=== PATIENT | female | born 2000 | race Two or more races ===

== ENCOUNTER 2023-08-11 15:16 | Outpatient (OUT) | payer OTHER, MEDICAID, SELFPAY ==
[2023-08-11 15:39] LABS: Basophils Percent Auto 0.3 % (0.2-2.0); Eosinophils Absolute Auto 0.1 10^3/uL (0.0-0.7); Eosinophils Percent Auto 1.1 % (0.9-7.0); Hematocrit 35.5 % (36.0-48.0); Hemoglobin 11.4 g/dL (12.0-16.0); Immature Granulocytes Abs Auto 0.03 10^3/uL (0.00-0.03); Immature Granulocytes Pct Auto 0.3 % (0.0-0.5); Lymphocytes Absolute Auto 2.3 10^3/uL (1.2-3.8); Lymphocytes Percent Auto 25.8 % (20.5-60.0); Mean Corpuscular HGB Conc 32.1 g/dL (29.9-35.2); Mean Corpuscular Hemoglobin 27.1 pg (26.7-34.0); Mean Corpuscular Volume 84.3 fL (81.0-99.0); Mean Platelet Volume 9.3 fL (9.5-13.5); Monocytes Absolute Auto 0.5 10^3/uL (0.3-0.8); Monocytes Percent Auto 5.7 % (1.7-12.0); Neutrophils Absolute Auto 6.1 10^3/uL (1.4-6.5); Neutrophils Percent Auto 66.8 % (43.0-75.0); Platelet Count 509 10^3/uL (150-450); Red Blood Count 4.21 10^6/uL (4.20-5.40); Red Cell Distribution Width 13.5 % (11.0-15.0); White Blood Count 9.1 10^3/uL (4.0-11.0)
[2023-08-11 15:58] LABS: INR 0.97; Partial Thromboplastin Time 28.5 sec (22.3-36.2); Prothrombin Time 10.3 sec (9.0-11.6)
[2023-08-11 16:20] LABS: Free T4 1.08 ng/dL (0.76-1.46)
[2023-08-11 16:24] LABS: HCG Quantitative <1 mIU/mL; Thyroid Stimulating Hormone 2.555 uIU/mL (0.358-3.740)
[2023-08-11 18:42] LABS: Estimated Average Glucose 111 mg/dL; Glycohemoglobin A1C 5.5 % (4.5-6.2)
== END 2023-08-11 15:17 | disposition home or self-care (01) ==
LOC: LAB 15:20
PROVIDERS: PCP Family Medicine; Visit Provider Physician Assistant
DX: N92.0 Excessive and frequent menstruation with regular cycle (principal)
CPT/HCPCS: 36415; 83036; 84439; 84443; 84702; 85025; 85610; 85730

== ENCOUNTER 2024-01-02 13:34 | Outpatient (OUT) | payer OTHER, MEDICAID, SELFPAY ==
--- NOTE | 2024-01-02 13:40 | US_ITS ---
[address] [address] Patient Name: HANK BRYAN MRN: [id number] date: 2000 Sex: F Assigned Patient Location: US Current Patient Location: US Accession/Order Number: [id number] Exam Date: 01/02/2024 13:48 Report Date: 01/02/2024 14:34 At the request of: VIKASH REINA Procedure: US pelvis EXAMINATION: US pelvis HISTORY: Menorrhagia With Regular Cycle N92.0 COMPARISON: No relevant comparison available. TECHNIQUE: Transabdominal and/or transvaginal sonographic examination was performed as indicated by examination type. FINDINGS: UTERUS: Normal size and appearance. Uterus size: 11.8 x 3.9 x 5.8 cm ENDOMETRIUM: Normal homogeneous appearance. Endometrial thickness: 5 mm RIGHT OVARY: Normal size and appearance. Duplex Doppler demonstrates normal waveform and flow; resistive index 0.6. Ovary size: 2.8 x 1.7 x 2.2 cm LEFT OVARY: Normal size and appearance. Duplex Doppler demonstrates normal waveform and flow; resistive index 0.5. Ovary size: 4.5 x 2.4 x 3.0 cm CUL-DE-SAC: Small amount of free fluid, likely physiologic. BLADDER: Unremarkable. OTHER: None. US/US pelvis IMPRESSION: 1. No abnormal or suspicious findings to account for patient's symptoms. Electronically authenticated by: DAYTON DE SANTIAGO Date: 01/02/2024 14:34
--- OUTSIDE RECORDS SUMMARY | 2024-01-02 13:41 | XMS_ITS | CCD ---
Author Organization [facility] Care Team Providers Care Chief Estimator Name Role Phone LIN, RUGEN Admitting Unavailable LIN, RUGEN Attending Unavailable LIN, RUGEN Primary Care Unavailable LIN, RUGEN Consulting Unavailable ISRAEL KESSLER V Consulting Unavailable LIN, RUGEN Primary Care Unavailable MARKER, CINDY Admitting Unavailable MARKER, CINDY Attending Unavailable MARKER, CINDY Consulting Unavailable LIN, RUGEN Admitting Unavailable LIN, RUGEN Attending Unavailable LIN, RUGEN Primary Care Unavailable LIN, RUGEN Consulting Unavailable ISRAEL KESSLER V Consulting Unavailable LIN, RUGEN Admitting Unavailable LIN, RUGEN Attending Unavailable LIN, RUGEN Primary Care Unavailable LIN, RUGEN Consulting Unavailable ISRAEL KESSLER V Consulting Unavailable LIN, RUGEN Admitting Unavailable LIN, RUGEN Attending Unavailable LIN, RUGEN Primary Care Unavailable LIN, RUGEN Consulting Unavailable DAYTON JIANG Consulting Unavailable LIN, RUGEN Admitting Unavailable LIN, RUGEN Attending Unavailable LIN, RUGEN Primary Care Unavailable LIN, RUGEN Consulting Unavailable DAYTON JIANG Consulting Unavailable LIN, RUGEN Primary Care Unavailable ELIZABETH MIRAMONTES Admitting Unavailable ELIZABETH MIRAMONTES Attending Unavailable ELIZABETH MIRAMONTES Consulting Unavailable MAYRA CARO) Admitting Unavailab MAYRA Field) Attending Unavailab MAYRA Field) Referring Unavailab MAYRA Field) Attending Unavailab ISABEL Kim Referring Unavailable PAPO, DEVINANCHUNIQUE Referring Unavailable PAPO, DEVINANCHAU Referring Unavailable PAPO, CHUANCHAU Referring Unavailable PAPO, DEVINANCHAU Attending Unavailable ISABEL ALEXIS Referring Unavailable ISABEL ALEXIS Attending Unavailable LIN, RUGEN RAYY Referring Unavailable LIN, RUGEN MABALAY Referring Unavailable Poppy Prajapati Unavailable Funmilayo Colon Attending Unavailable Funmilayo Colon Admitting Unavailable Enrico Ceballos MD Primary Care Provider PEYTON ALEXIS Attending Unavailable AKIN HUERTAS Attending Unavailable AKIN HUERTAS Attending Unavailable LESLIE DAVIDSON Attending Unavailable Allergies Allergy Classification Reported Allergen(s) Allergy Type Date of Onset Reaction(s) Facility (1 source) Dust; Translations: [DUST] Propensity to adverse reactions (disorder) 9 [facility] (1 source) Grass pollen; Translations: [GRASS POLLEN] Propensity to adverse reactions to drug (disorder) 9 [facility] (1 source) Tree; Translations: [TREES] Propensity to adverse reactions (disorder) 9 [facility] (1 source) Grass pollen Drug Allergy 9 [facility] (1 source) House dust mite Allergy to substance 9 [facility] Work Phone: Medications Current Medications Medication Drug Class(es) Dates Sig (Normalized) Sig (Original) [id number] 200 actuat albuterol 0.09 mg/actuat metered dose inhaler (1 source) beta2-Adrenergic Agonist take 2 puff(s) by inhalation every four hours for wheezing albuterol HFA (Ventolin HFA) 90 mcg/act inhaler Inhale 2 puffs every 4 (four) hours if needed for wheezing or shortness of breath. 0 Active 60 actuat budesonide 0.16 mg/actuat / formoterol fumarate 0.0045 mg/actuat metered dose inhaler (1 source) Corticosteroid, beta2-Adrenergic Agonist Start: 3 take 2 puff(s) by inhalation in the morning Symbicort 160-4.5 MCG/ACT inhaler Inhale 2 puffs in the morning and 2 puffs before bedtime. 0 12/11/2022 Active 24 hr buPROPion hydrochloride 300 mg extended release oral tablet (1 source) Aminoketone take 1 tablet by mouth every twenty-four hours in the morning buPROPion XL (Wellbutrin XL) 300 MG 24 hr tablet Take 300 mg by mouth in the morning. 0 Active calcium carbonate 1500 mg oral tablet (1 source) take 1 tablet by mouth in the morning calcium carbonate 1500 (600 Ca) MG tablet Take 600 mg by mouth in the morning. 0 Active cholecalciferol 0.125 mg oral capsule (1 source) Vitamin D Start: 2 take 1 capsule by mouth in the morning cholecalciferol (Vitamin D-3) 125 MCG (5000 UT) capsule Take 1 capsule by mouth in the morning. 0 05/27/2022 Active ketorolac tromethamine 5 mg/ml ophthalmic solution (1 source) Nonsteroidal Anti-inflammatory Drug, Cyclooxygenase Inhibitor Start: 4 take 1 drop(s) into the eye(s) every six hours ketorolac (Acular) 0.5 % ophthalmic solution Indications: Allergic conjunctivitis of both eyes Administer 1 drop into both eyes every 6 (six) hours 5 mL 1 10/08/2023 Active 24 hr metFORMIN hydrochloride 500 mg extended release oral tablet (1 source) Biguanide Start: 4 End: 4 take 1 tablet by mouth every twenty-four hours at mealtime metFORMIN XR (Glucophage-XR) 500 MG 24 hr tablet Indications: PCOS (polycystic ovarian syndrome) Take 1 tablet (500 mg) by mouth in the evening. Take with meals Do not crush, chew, or split. 90 tablet 0 11/17/2023 02/15/2024 Active methylPREDNISolone 4 mg oral tablet (1 source) Corticosteroid Start: 0 Medrol 4 MG as directed Orally for 6 days Aug, Active ondansetron 4 mg disintegrating oral tablet (1 source) Serotonin-3 Receptor Antagonist take 1 tablet by mouth every eight hours as needed for nausea and vomiting ondansetron ODT (Zofran-ODT) 4 MG disintegrating tablet Take 4 mg by mouth every 8 (eight) hours if needed for nausea or vomiting. 0 Active promethazine hydrochloride 12.5 mg oral tablet (1 source) Phenothiazine Start: 1 take 1 tablet by mouth every eight hours Promethazine HCl 12.5 MG 1 tablet as needed Orally every 8 hrs for 4 days Jul, Active Problems Active Problems Problem Classification Problem Date Documented Da te Episodic/Chronic Acute bronchitis (5 sources) Acute bronchitis, unspecified; Translations: [ACUTE BRONCHITIS UNSPECIFIED] Onset: 8 Episodic Allergic reactions (1 source) Flexural atopic dermatitis; Translations: [Other atopic dermatitis] Onset: 0 07-30-2023 Chronic Allergic reactions (4 sources) Unspecified contact dermatitis, unspecified cause; Translations: [UNS CONTACT DERMATITIS UNS CAUSE] Onset: 9 Episodic Anxiety disorders (1 source) Generalized anxiety disorder; Translations: [Generalized anxiety disorder] Onset: 3 07-30-2023 Chronic Asthma (4 sources) Unspecified asthma, uncomplicated; Translations: [Exacerbation of moderate persistent asthma] Onset: 7 07-30-2023 Chronic External cause codes: Natural/environment (1 source) Exposure to other specified factors, initial encounter; Translations: [EXPOSURE OTHER SPEC FACTORS INITIAL] Onset: 9 Headache; including migraine (6 sources) Refractory migraine without aura; Translations: [Migraine without aura, intractable, without status migrainosus] Onset: 8 Resolved: 1 Chronic Joint disorders and dislocations; trauma-related (1 source) Patellofemoral syndrome of left knee; Translations: [Patellofemoral disorders, left knee] Onset: 7 07-30-2023 Chronic Malaise and fatigue (1 source) Fatigue; Translations: [Chronic fatigue, unspecified] Onset: 7 07-30-2023 Chronic Nausea and vomiting (6 sources) Nausea; Translations: [Nausea with vomiting, unspecified] Onset: 8 Episodic Nausea and vomiting (1 source) Vomiting, unspecified; Translations: [Vomiting] Onset: 9 Open wounds of extremities (1 source) Unspecified open wound of left upper arm, initial encounter; Translations: [UNSPECIFIED OPN WND LT UP ARM INIT] Onset: 9 Episodic Other gastrointestinal disorders (3 sources) Diarrhea, unspecified; Translations: [DIARRHEA UNSPECIFIED] Onset: 9 Episodic Other lower respiratory disease (6 sources) Other nonspecific abnormal finding of lung field; Translations: [OTH NONSPECIFIC ABN FIND LNG FIELD] Onset: 9 Episodic Other nutritional; endocrine; and metabolic disorders (1 source) Body mass index 40+ - severely obese; Translations: [Body mass index (BMI) 50.0-59.9, adult] Onset: 3 07-30-2023 Chronic Other nutritional; endocrine; and metabolic disorders (1 source) Obesity caused by energy imbalance; Translations: [Morbid (severe) obesity due to excess calories] Onset: 7 07-30-2023 Chronic Other upper respiratory disease (1 source) 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; Translations: [Other allergic rhinitis] Onset: 3 04-22-2023 Chronic Other upper respiratory disease (1 source) Allergic rhinitis due to pollen; Translations: [Allergic rhinitis due to pollen] Onset: 8 07-30-2023 Chronic Thyroid disorders (1 source) Goiter; Translations: [Iodine-deficiency related diffuse (endemic) goiter] Onset: 3 07-30-2023 Chronic Unclassified (1 source) Other specified disorders of bone, shoulder; Translations: [Other specified disorders of bone, shoulder] Onset: 3 Past or Other Problems Problem Classification Problem Date Documented Date Episodic/Chronic Abdominal pain (3 sources) Unspecified abdominal pain; Translations: [Right upper quadrant pain] Onset: 12-01-2018 07-30-2023 Episodic Cardiac dysrhythmias (2 sources) Palpitations; Translations: [Palpitations] Onset: 12-01-2018 07-30-2023 Episodic Inflammation; infection of eye (except that caused by tuberculosis or sexually transmitteddisease) (1 source) Allergic conjunctivitis of bilateral eyes; Translations: [Acute atopic conjunctivitis, bilateral] Onset: 06-18-2023 06-18-2023 Episodic Mycoses (1 source) Dermatophytosis; Translations: [Tinea corporis] Onset: 02-25-2017 07-30-2023 Episodic Noninfectious gastroenteritis (1 source) Gastroenteritis; Translations: [Gastroenteritis] Episodic Other circulatory disease (1 source) Elevated blood-pressure reading without diagnosis of hypertension; Translations: [Elevated blood-pressure reading, without diagnosis of hypertension] Onset: 07-30-2023 07-30-2023 Episodic Other connective tissue disease (1 source) Ganglion cyst of left foot; Translations: [Ganglion, left ankle and foot] Onset: 07-30-2023 07-30-2023 Episodic Other lower respiratory disease (4 sources) Cough; Translations: [COUGH] Onset: 12-25-2017 Episodic Other lower respiratory disease (1 source) Multiple nodules of lung; Translations: [Other nonspecific abnormal finding of lung field] Onset: 10-27-2018 07-30-2023 Episodic Other lower respiratory disease (1 source) Solitary nodule of lung; Translations: [Solitary pulmonary nodule] Onset: 10-07-2018 07-30-2023 Episodic Other non-traumatic joint disorders (1 source) Multiple joint pain; Translations: [Pain in unspecified joint] Onset: 07-30-2023 07-30-2023 Episodic Other nutritional; endocrine; and metabolic disorders (1 source) Decrease in appetite; Translations: [Anorexia] Onset: 07-30-2023 07-30-2023 Episodic Other screening for suspected conditions (not mental disorders or infectious disease) (1 source) Ferritin level low; Translations: [Abnormal level of blood mineral] Onset: 07-30-2023 07-30-2023 Episodic Other upper respiratory disease (1 source) Allergic rhinitis; Translations: [Allergic rhinitis, unspecified] Onset: 04-14-2018 Resolved: 07-30-2023 07-30-2023 Chronic Other upper respiratory disease (3 sources) Other specified disorders of nose and nasal sinuses; Translations: [OTH SPEC D/O NOSE NASAL SINUSES] Onset: 04-21-2018 Episodic Other upper respiratory infections (1 source) Acute nasopharyngitis [common cold]; Translations: [ACUTE NASOPHARYNGITIS COMMON COLD] Onset: 04-23-2018 Episodic Residual codes; unclassified (1 source) Insomnia; Translations: [Insomnia, unspecified] Onset: 10-27-2018 07-30-2023 Episodic Residual codes; unclassified (1 source) Sleep disorder; Translations: [Sleep disorder, unspecified] Onset: 04-14-2017 07-30-2023 Episodic Residual codes; unclassified (1 source) Vegetarian; Translations: [Other specified health status] Onset: 07-30-2023 07-30-2023 Episodic Viral infection (1 source) COVID-19; Translations: [Other specified viral infection] Onset: 12-01-2020 10-25-2023 Episodic Results Test Name Value Interpretation Reference Range Facility XR shoulder RT min 2V*on XR shoulder RT min 2V* [facility] [place] [address] [place] [address] XRay Report Signed Patient: Hank Bryan MR#: [id number] 3 : 2000 Acct:[id number] Age/Sex: 22 / F ADM Date: 11/18/22 Loc: [facility] Room: Type: [facility] Attending Dr: Funmilayo SALDANA Copies to: LES Kelly Ordering Provider: LES Kelly Date of Service: 11/18/22 XR/XR shoulder RT min 2V*: Pain of right clavicle RIGHT SHOULDER - - 3 views CLINICAL HISTORY: Little brother head is head on patient's right shoulder 3 days ago. Now pain anterior to the clavicle radiates to elbow. COMPARISON: None FINDINGS: No acute bony process is seen. XR/XR shoulder RT min 2V* IMPRESSION: No acute bony process. Impression dictated by: Fred Solano Jr., ElsaOGeoff11/18/2022 4:17 PM Dictation Location: [place] [address] Transcribed By: [facility] 11/18/221616 Dictated By: Fred Solano Jr, DO 11/18/221615 Signed By: 11/18/221616 [facility] Marli 02-03-2019 CNPTOUTREA Patient Outreach (PGAN) HANK BRYAN ([id number]) 4 F Date Time Provider Department 02/03/19 MAYRA CARO) EVELYNE During your visit today, we recorded the following information about you: Mary Jane 02/03/2019 9:46 AM Signed Called and spoke with mom (Christine). Mom informed that surgical pathology came back normal from patient's recent scope per Dr. Caro. Mom thankful for this information, and has no further questions for RN. Allergies As of Date: 02/03/2019 Noted Allergy Reaction DUST 12/01/2018 4 - Hives Comments: swelling, redness, itching GRASS POLLEN 12/01/2018 4 - Hives Comments: swelling, redness, itching TREES 12/01/2018 4 - Hives Comments: eye redness, itching, swelling Date Reviewed: 01/26/2019 Reviewed by: Lois (Rn) CLIVE Robertson - Fully Assessed Reason for Visit: Care Coordination [3491] Cmt: Normal surgical pathology results Reason For Visit History Recorded Prescriptions as of 02/03/2019 Sig: ONDANSETRON 4 MG DISINTEGRATI* Take 4 mg by mouth every 8 ho* ALBUTEROL SULFATE HFA 90 MCG/* Inhale 2 Puffs as instructed. Problem List As Of Date 02/03/2019 Noted Resolved Lung nodules [R91.8] INVALID FOR* Mild intermittent asthma without complication [*INVALID FOR* Generalized abdominal pain [R10.84] INVALID FOR* Palpitations [R00.2] INVALID FOR* Encounter Status:Closed by MARY JANE on 02/03/19 [facility] PROGRESSon 02-03-2019 Protein mass conc HNO ID: [id number] Author: Mary Jane Service: ? Author Type: ? Type: Progress Notes Filed: 02/03/2019 9:46 AM Note Text: Called and spoke with mom (Christine). Mom informed that surgical pathology came back normal from patient's recent scope per Dr. Caro. Mom thankful for this information, and has no further questions for RN. Normal [facility] CNPTOUTREACHon 01-28-2019 CNPTOUTREACH Patient Outreach (PGASMN) HANK [id number]) 4 F Date Time Provider Department 01/28/19 MAYRA CARO) PGAN During your visit today, we recorded the following information about you: Mary Jane 01/28/2019 1:14 PM Signed Called and spoke with mom (christine). Mom informed that per Dr. Caro labs all came back good except for an elevated Triglyceride level. Dr. Caro would like patient to follow up with PCP to discuss this elevated level. Mom teaches this back and has no further questions for RN at this time. Allergies As of Date: 01/28/2019 Noted Allergy Reaction DUST 12/01/2018 4 - Hives Comments: swelling, redness, itching GRASS POLLEN 12/01/2018 4 - Hives Comments: swelling, redness, itching TREES 12/01/2018 4 - Hives Comments: eye redness, itching, swelling Date Reviewed: 01/26/2019 Reviewed by: Lois (Clive) CLIVE Robertson - Fully Assessed Reason for Visit: patient outreach [Other] Cmt: Elevated Triglycerides Prescriptions as of 01/28/2019 Sig: ONDANSETRON 4 MG DISINTEGRATI* Take 4 mg by mouth every 8 ho* ALBUTEROL SULFATE HFA 90 MCG/* Inhale 2 Puffs as instructed. Problem List As Of Date 01/28/2019 Noted Resolved Lung nodules [R91.8] INVALID FOR* Mild intermittent asthma without complication [*INVALID FOR* Generalized abdominal pain [R10.84] INVALID FOR* Palpitations [R00.2] INVALID FOR* Encounter Status:Closed by MARY JANE on 01/28/19 Normal [facility] PROGRESSon 01-28-2019 Protein mass conc HNO ID: [id number] Author: Mary Jane Service: ? Author Type: ? Type: Progress Notes Filed: 01/28/2019 1:14 PM Note Text: Called and spoke with mom (christine). Mom informed that per Dr. Caro labs all came back good except for an elevated Triglyceride level. Dr. Caro would like patient to follow up with PCP to discuss this elevated level. Mom teaches this back and has no further questions for RN at this time. Normal [facility] ALLIED HEALTHon 01-26-2019 ALLIED HEALTH HNO ID: [id number] Author: Oneil (Ccls) Emmanuel Service: ? Author Type: Health Commissioner Type: Allied Health Filed: 01/26/2019 10:12 AM Note Text: CHILD LIFE THERAPY NOTE SERVICE DATE: 01/26/2019 SERVICE TIME: 730 Referred By: Self Reason for Referral: Reason for Visit /Referral: Procedural preparation/support;Pat ient coping/assessement;Care givers coping/assessment Time Spent (minutes): Child Life Time Spent: 16-30 Minutes Assessments: 3-21 years old Child Behavior: Apprehensive, Within normal limit Caregiver Assessment: Behavior within normal limits Coping Assessment: Behavior with expected limits, Understands reason for hospitalization Psychoscoial Risk Assessment in Pediatrics (PRAP) Reason for PRAP?: prep for OR Communication: 0-Functional communication skills for age/expresses wants and needs Special Needs: 0-No special needs Anxiety and Copin-Some situational anxiety evident/ can cope with support Temperament: 0-Even and adaptable Parent and Caregiver Stress: 1-Shows signs of stress, but responds to support and/or utilizes coping strategies Past Healthcare Encounter: 0-Positive previous encounter Invasiveness of Procedure/Encounter: 1-Mildly invasive procedure/encounter for patient Developmental Impact: 1-Aspects of development may mildly impact coping PRAP Score Row: 4 Issues: Patient Issue: Normalization, Procedure Normalization Related To: Hospital Environment, Medical Equipment, Procedure Procedure Related to: IV placement Interventions: Initiated Child Life Program: Yes Child Life Clinical Interventions: Preparation for procedure, Coping plan developed, Environmental normalization, Diversional activities, Normal growth and development, Procedural support, Coping skills development/facilitatio n, Family support, Cognitive/emotional support Child Life Preparation for Procedure: Verbal Child Life Coping Plan Developed: Discussed sequence of events; framed day in positive light to get answers for on-going abdominal issues; discussed post-anethesia effects (irritability or discomfort) Extended Family Support: Caregiver support and education Child Life Procedural Support Interventions: Comfort positioning, Coping skills facilitation, Other: see comment(Pt squeezed CLS hand through IV placement) Coping Skills Facilitation : Deep breathing, Sequence of event, Sensory soothing Distractions: Verbal distraction Evaluation: Normalization Goals/Outcomes: Patient and/or Family Adjusting to Hospitalization with Support Normalization Evaluation of Progress: Pt responsive to conversation about her procedure; Pt answered questions and appeared to be coping well despite parents' voicing that she is anxious about today Normalization Resolution: Yes: Goals/Outcomes Met Procedure Goals/Outcomes: Actively Engages in Coping Skills, Coped Well with Support Procedure - Evaluation of Progress: Pt utilized coping strategies (squeezing CLS hand, diversional conversation, sequence of events deep breathing) Pt coped well through 2 pokes Procedure Resolution: Yes: Goals/Outcomes Met SIGNATURE: mejia Hall PATIENT NAME: Hank Bryan DATE: January 26, 2019 TIME: 10:12 AM PAGER/CONTACT #: [phone] [facility] ANES Jenifer 01-26-2019 ANES POST HNO ID: [id number] Author: Karen Reese Service: Anesthesiology Author Type: Anesthesiologist Type: Anesthesia PostOp Filed: 01/26/2019 2:27 PM Note Text: POST ANESTHESIA EVALUATION NOTE SERVICE DATE: 01/26/2019 SERVICE TIME: 14:30 : 2000 Vitals: 01/26/19 0702 01/26/19 0903 01/26/19 0930 01/26/19 1011 Temp: 36.1 ?C (97 ?F) 36.1 ?C (97 ?F) 36.2 ?C (97.2 ?F) 36.1 ?C (97 ?F) 01/26/19 0903 01/26/19 0915 01/26/19 0930 01/26/19 1011 BP: 106/55 108/64 108/63 118/85 01/26/19 0915 01/26/19 0930 01/26/19 1000 01/26/19 1011 Pulse: 90 86 89 80 01/26/19 0915 01/26/19 0930 01/26/19 1000 01/26/19 1011 Resp: 20 20 20 20 01/26/19 0915 01/26/19 0930 01/26/19 1000 01/26/19 1011 SpO2: 97% 98% 98% 99% Validated Vital Signs: Yes POST ANES STATUS: No apparent anesthetic complications. The patient is appropriately hydrated with stable respiratory and cardiovascular status. Patient has safe and adequate airway control. The patient has appropriate pain relief and no significant post operative nausea or vomiting. The patient has achieved baseline mental status. Intra-Operative Events: No Significant Anesthesia Events Further assessment by Anesthesia Service: None Other Remarks: SIGNATURE: Karen Reese MD PATIENT NAME: Hank Bryan DATE: January 26, 2019 TIME: 2:26 PM PAGER/CONTACT #: [phone] Normal [facility] C-Reactive Proteinon 019 CRP mass conc 0.2 mg/dL Normal <0.9 [facility] Comment on above: Performed By: #### C BCDIF, WSR, FT4, IGA, CMP, LIPA, LIPB, TSH, CRP, TGIGA, GLIAD, TGIGG ####[place] [address] [address] [place], [place] [phone] CBC and Differentialon 01-26 Abs Baso 0.05 k/uL Normal <0.11 [facility] Comment on above: Performed By: #### C BCDIF, WSR, FT4, IGA, CMP, LIPA, LIPB, TSH, CRP, TGIGA, GLIAD, TGIGG ####[place] [address] [address] [place], [place] [phone] Abs Cedar 0.58 k/uL Normal <0.87 [facility] Comment on above: Performed By: #### C BCDIF, WSR, FT4, IGA, CMP, LIPA, LIPB, TSH, CRP, TGIGA, GLIAD, TGIGG ####[place] [address] [address] [place] [phone] Abs Neut 5.35 k/uL Normal 1.45-7.50 [facility] Comment on above: Performed By: #### C BCDIF, WSR, FT4, IGA, CMP, LIPA, LIPB, TSH, CRP, TGIGA, GLIAD, TGIGG ####[place] [address] [address], [place] [phone] Absolute nRBC <0.01 Normal <0.01 [facility] Comment on above: Performed By: #### C BCDIF, WSR, FT4, IGA, CMP, LIPA, LIPB, TSH, CRP, TGIGA, GLIAD, TGIGG ####[place] [address] [address] [place] [phone] Basophils/100 WBC (Bld) 0.6 % Normal [facility] Comment on above: Performed By: #### C BCDIF, WSR, FT4, IGA, CMP, LIPA, LIPB, TSH, CRP, TGIGA, GLIAD, TGIGG ####[place] [address] [address] [place] [phone] DTYPE Auto Diff Normal [facility] Comment on above: Performed By: #### C BCDIF, WSR, FT4, IGA, CMP, LIPA, LIPB, TSH, CRP, TGIGA, GLIAD, TGIGG ####[place] [phone] Eosinophils #/vol (Bld) 0.10 10*3/uL Normal <0.46 [facility] Comment on above: Performed By: #### C BCDIF, WSR, FT4, IGA, CMP, LIPA, LIPB, TSH, CRP, TGIGA, GLIAD, TGIGG ####[place] [address] [place] [phone] Eosinophils/100 WBC (Bld) 1.1 % Normal [facility] Comment on above: Performed By: #### C BCDIF, WSR, FT4, IGA, CMP, LIPA, LIPB, TSH, CRP, TGIGA, GLIAD, TGIGG ####[place] [address] [address] [place] [phone] Erythrocyte distribution width Ratio (RBC) 13.5 % Normal 11.5-15.0 [facility] Comment on above: Performed By: #### C BCDIF, WSR, FT4, IGA, CMP, LIPA, LIPB, TSH, CRP, TGIGA, GLIAD, TGIGG ####[address] [phone] Hematocrit Volume Fraction (Bld) 34.0 % Low 36.0-46.0 [facility] Comment on above: Performed By: #### C BCDIF, WSR, FT4, IGA, CMP, LIPA, LIPB, TSH, CRP, TGIGA, GLIAD, TGIGG ####[place] [phone] Hemoglobin mass conc (Bld) 11.0 g/dL Low 11.5-15.5 [facility] Comment on above: Performed By: #### C BCDIF, WSR, FT4, IGA, CMP, LIPA, LIPB, TSH, CRP, TGIGA, GLIAD, TGIGG ####[place] [phone] Lymphocytes #/vol (Bld) 2.69 10*3/uL Normal 1.00-4.00 [facility] Comment on above: Performed By: #### C BCDIF, WSR, FT4, IGA, CMP, LIPA, LIPB, TSH, CRP, TGIGA, GLIAD, TGIGG ####[place] [place] [phone] Lymphocytes/100 WBC (Bld) 30.7 % Normal [facility] Comment on above: Performed By: #### C BCDIF, WSR, FT4, IGA, CMP, LIPA, LIPB, TSH, CRP, TGIGA, GLIAD, TGIGG ####[address] [phone] MCH Entitic mass (RBC) 27.6 pG Normal 26.0-34.0 [facility] Comment on above: Performed By: #### C BCDIF, WSR, FT4, IGA, CMP, LIPA, LIPB, TSH, CRP, TGIGA, GLIAD, TGIGG ####[address], [place] [phone] MCHC mass conc (RBC) 32.4 g/dL Normal 30.5-36.[address] [facility] Comment on above: Performed By: #### C BCDIF, WSR, FT4, IGA, CMP, LIPA, LIPB, TSH, CRP, TGIGA, GLIAD, TGIGG ####[place] [phone] MCV Entitic volume (RBC) 85.4 fL Normal 80.0-100.0 [facility] Comment on above: Performed By: #### C BCDIF, WSR, FT4, IGA, CMP, LIPA, LIPB, TSH, CRP, TGIGA, GLIAD, TGIGG ####[place] [phone] Monocytes/100 WBC (Bld) 6.6 % Normal [facility] Comment on above: Performed By: #### C BCDIF, WSR, FT4, IGA, CMP, LIPA, LIPB, TSH, CRP, TGIGA, GLIAD, TGIGG ####[place] [phone] Neutrophils/100 WBC (Bld) 61.0 % Normal [facility] Comment on above: Performed By: #### C BCDIF, WSR, FT4, IGA, CMP, LIPA, LIPB, TSH, CRP, TGIGA, GLIAD, TGIGG ####[place] [phone] NRBCs 0.0 /100 WBC Normal 0 [facility] Comment on above: Performed By: #### C BCDIF, WSR, FT4, IGA, CMP, LIPA, LIPB, TSH, CRP, TGIGA, GLIAD, TGIGG ####[place] [phone] Platelet mean volume Entitic volume (Bld) 9.7 fL Normal 9.0-12.7 [facility] Comment on above: Performed By: #### C BCDIF, WSR, FT4, IGA, CMP, LIPA, LIPB, TSH, CRP, TGIGA, GLIAD, TGIGG ####[address] [phone] Platelets #/vol (Bld) 433 10*3/uL High 150-400 [facility] Comment on above: Performed By: #### C BCDIF, WSR, FT4, IGA, CMP, LIPA, LIPB, TSH, CRP, TGIGA, GLIAD, TGIGG ####[address] [phone] RBC #/vol (Bld) 3.98 10*6/uL Normal 3.90-5.20 [facility] Comment on above: Performed By: #### C BCDIF, WSR, FT4, IGA, CMP, LIPA, LIPB, TSH, CRP, TGIGA, GLIAD, TGIGG ####[address] [phone] WBC #/vol (Bld) 8.77 10*3/uL Normal 3.70-11.00 [facility] Comment on above: Performed By: #### C BCDIF, WSR, FT4, IGA, CMP, LIPA, LIPB, TSH, CRP, TGIGA, GLIAD, TGIGG ####[address] [phone] Comp Metabolic Panelon 01-26 Albumin mass conc 4.1 g/dL Normal 3.2-4.5 [facility] Comment on above: Performed By: #### C BCDIF, WSR, FT4, IGA, CMP, LIPA, LIPB, TSH, CRP, TGIGA, GLIAD, TGIGG ####[address], [place] [phone] ALP enzyme act/vol 63 U/L Normal 50-117 [facility] Comment on above: Result Comment: Refe rence ranges were not locally established for this patient's age group. The normal values are based on the following source: Jyoti GALE, Tara AH, et al. CLSI based transference of the CALIPER database of pediatric reference intervals from [place] to Will, Ortho, Nneka, and Siemens Clinical Chemistry Assays: Direct validation using reference samples from the [facility] cohort. Clin Biochem. Performed By: #### C BCDIF, WSR, FT4, IGA, CMP, LIPA, LIPB, TSH, CRP, TGIGA, GLIAD, TGIGG ####[address] [phone] ALT enzyme act/vol 17 U/L Normal 7-38 [facility] Comment on above: Result Comment: (NOT E) Reference ranges for this patient's age group have not been established. These reference ranges reflect verified or established ranges for the adult population. Interpret these ranges wtih caution using clinical context and additional reference resources. Performed By: #### C BCDIF, WSR, FT4, IGA, CMP, LIPA, LIPB, TSH, CRP, TGIGA, GLIAD, TGIGG ####[address] [phone] Anion gap molar conc 18 mmol/L Normal 9-[address] [facility] Comment on above: Result Comment: (NOT E) Reference ranges for this patient's age group have not been established. These reference ranges reflect verified or established ranges for the adult population. Interpret these ranges with caution using the clinical context and additional reference resources. Performed By: #### C BCDIF, WSR, FT4, IGA, CMP, LIPA, LIPB, TSH, CRP, TGIGA, GLIAD, TGIGG ####[address] [phone] AST enzyme act/vol 21 U/L Normal 13-35 [facility] Comment on above: Result Comment: (NOT E) Reference ranges for this patient's age group have not been established. These reference ranges reflect verified or established ranges for the adult population. Interpret these ranges with caution using clinical context and additional reference resources. Performed By: #### C BCDIF, WSR, FT4, IGA, CMP, LIPA, LIPB, TSH, CRP, TGIGA, GLIAD, TGIGG ####[place] [address] [place], [place] [phone] Bilirubin mass conc mg/dL Low 0.2-1.3 [facility] Comment on above: Result Comment: (NOT E) Reference ranges for this patient's age group have not been established. These reference ranges reflect verified or established ranges for the adult population. Interpret these ranges with caution using the clinical context and additional reference resources. Performed By: #### C BCDIF, WSR, FT4, IGA, CMP, LIPA, LIPB, TSH, CRP, TGIGA, GLIAD, TGIGG ####[address] [phone] Calcium mass conc 9.5 mg/dL Normal 8.4-10.2 [facility] Comment on above: Performed By: #### C BCDIF, WSR, FT4, IGA, CMP, LIPA, LIPB, TSH, CRP, TGIGA, GLIAD, TGIGG ####[address] [phone] Chloride molar conc 106 mmol/L High 97-105 [facility] Comment on above: Result Comment: (NOT E) Reference ranges for this patient's age group have not been established. These reference ranges reflect verified or established ranges for the adult population. Interpret these ranges with caution using the clinical context and additional reference resources. Performed By: #### C BCDIF, WSR, FT4, IGA, CMP, LIPA, LIPB, TSH, CRP, TGIGA, GLIAD, TGIGG ####[address] [phone] CO2 molar conc 18 mmol/L Low 22-30 [facility] Comment on above: Result Comment: (NOT E) Reference ranges for this patient's age group have not been established. These reference ranges reflect verified or established ranges for the adult population. Interpret these ranges with caution using the clinical context and additional reference resources. Performed By: #### C BCDIF, WSR, FT4, IGA, CMP, LIPA, LIPB, TSH, CRP, TGIGA, GLIAD, TGIGG ####[facility] [place], [place] [phone] Creatinine mass conc 0.65 mg/dL Normal 0.58-0.[address] [facility] Comment on above: Result Comment: Refe rence ranges for this patient's age group have not been established. These reference ranges reflect verified or established ranges for the adult population. Interpret these ranges with caution using the clinical context and additional reference resources. Performed By: #### C BCDIF, WSR, FT4, IGA, CMP, LIPA, LIPB, TSH, CRP, TGIGA, GLIAD, TGIGG ####[facility] [place], [place] [phone] Glucose mass conc 78 mg/dL Normal 74-99 [facility] Comment on above: Result Comment: Refe rence ranges for this patient's age group have not been established. These reference ranges reflect verified or established ranges for the adult population. Interpret these ranges with caution using the clinical context and additional reference resources. The [place] Diabetes Association (ADA) provides guidance for cutoff values for fasting glucose and random glucose. The ADA defines fasting as no caloric intake for at least 8 hours. Fasting plasma glucose results between 100 to 125 mg/dL indicate increased risk for diabetes (prediabetes). Fasting plasma glucose results greater than or equal to 126 mg/dL meet the criteria for diagnosis of diabetes. In the absence of unequivocal hyperglycemia, results should be confirmed by repeat testing. In a patient with classic symptoms of hyperglycemia or hyperglycemic crisis, random plasma glucose results greater than or equal to 200 mg/dL meet the criteria for diagnosis of diabetes. Reference: Standards of Medical Care in Diabetes 2016, [place] [employer] Association. Diabetes Care. 2016.39(Suppl 1). Performed By: #### C BCDIF, WSR, FT4, IGA, CMP, LIPA, LIPB, TSH, CRP, TGIGA, GLIAD, TGIGG ####[place] [address] [place], [place] [phone] Potassium molar conc 4.1 mmol/L Normal 3.7-5.[address] [facility] Comment on above: Result Comment: (NOT E) Reference ranges for this patient's age group have not been established. These reference ranges reflect verified or established ranges for the adult population. Interpret these ranges with caution using the clinical context and additional reference resources. Performed By: #### C BCDIF, WSR, FT4, IGA, CMP, LIPA, LIPB, TSH, CRP, TGIGA, GLIAD, TGIGG ####[address] [phone] Protein mass conc 7.0 g/dL Normal 6.3-8.0 [facility] Comment on above: Result Comment: (NOT E) Note that results are flagged as abnormal based on ADULT reference ranges, rather than age-specific ranges for the pediatric population. Lab-specific normal ranges have not been determined for this patient's age group. Published reference range data, shown in the table below, may contibute to proper clinical interpretation. Age Reference Range Units 0-12 months 4.9-7.3 g/dL 1-5 years 6.2-8.0 g/dL 6-10 years 6.6-8.6 g/dL 11-14 years 6.4-8.5 g/dL 15-17 years 6.4-8.3 g/dL Reference: Bishop MK, Asia I, Christiano M, et al. [place] [employer] Initiative on Reference Interval Database(CALIPER): pediatric reference intervals for an integrated clinical chemistry and immunoassay analyzer, [employer] GAS METER REPAIRER [id number]. Clin Biochem 2009;42:885-891. Performed By: #### C BCDIF, WSR, FT4, IGA, CMP, LIPA, LIPB, TSH, CRP, TGIGA, GLIAD, TGIGG ####[address] [phone] Sodium molar conc 142 mmol/L Normal 136-144 [facility] Comment on above: Result Comment: (NOT E) Reference ranges for this patient's age group have not been established. These reference ranges reflect verified or established ranges for the adult population. Interpret these ranges with caution using the clinical context and additional reference resources. Performed By: #### C BCDIF, WSR, FT4, IGA, CMP, LIPA, LIPB, TSH, CRP, TGIGA, GLIAD, TGIGG ####[address] [phone] Urea nitrogen mass conc 9 mg/dL Normal 5-18 [facility] Comment on above: Performed By: #### C BCDIF, WSR, FT4, IGA, CMP, LIPA, LIPB, TSH, CRP, TGIGA, GLIAD, TGIGG ####[address] [phone] Free T4on 01-26-2019 T4 free mass conc 1.3 ng/dL Normal 0.8-1.5 [facility] Comment on above: Performed By: #### C BCDIF, WSR, FT4, IGA, CMP, LIPA, LIPB, TSH, CRP, TGIGA, GLIAD, TGIGG ####[address] [phone] Gliadin(Deamin.)Abson 2018 Gliad IgA Ab 3 Units Normal <20 [facility] Comment on above: Result Comment: Nega tive : < 20 Units Weak Positive : 20 - 30 Units Moderate Pos to Strong Pos: >30 Units The following results were obtained with the [employer] QUANTA Lite Gliadin IgA NASIM. Gliadin IgA values obtained with different manufacturers' assay methods may not be used interchangeably. The magnitude of the reported IgA levels cannot be correlated to an endpoint titer. Performed By: #### C BCDIF, WSR, FT4, IGA, CMP, LIPA, LIPB, TSH, CRP, TGIGA, GLIAD, TGIGG ####[facility] [place], [place] [phone] Gliad IgG Ab 4 Units Normal <20 [facility] Comment on above: Result Comment: Nega tive : < 20 Units Weak Positive : 20 - 30 Units Moderate Pos to Strong Pos: >30 Units The following results were obtained with the [employer] QUANTA Lite Gliadin IgG NASIM. Gliadin IgG values obtained with different manufacturers' assay methods may not be used interchangeably. The magnitude of the reported IgG levels cannot be correlated to an endpoint titer. Performed By: #### C BCDIF, WSR, FT4, IGA, CMP, LIPA, LIPB, TSH, CRP, TGIGA, GLIAD, TGIGG ####[facility] [place], [place] [phone] HISTORY PHYSICALon 9 HISTORY PHYSICAL HNO ID: [id number] Author: Mayra Hicks) MD [place] Service: Pediatric Gastroenterology Author Type: Physician Type: HANDP Filed: 01/26/2019 7:51 AM Note Text: UPDATED HISTORY AND PHYSICAL EXAMINATION SERVICE DATE: 01/26/2019 SERVICE TIME: 7:50 AM PHYSICAL EXAM MUST BE COMPLETED ON ADMISSION The History and Physical (completed in the past 30 days) has been reviewed and the patient has been examined. The contents accurately reflect the patient's condition with the following additions or revisions since the HANDP was completed. Examination indicates no changes. This HANDP can be found in the Consult note dated 01/04/19. SIGNATURE: Mayra Caro MD PATIENT NAME: Hank Bryan DATE: January 26, 2019 TIME: 7:50 AM PAGER: Normal [facility] IgAon 01-26-2019 IgA mass conc 112 mg/dL Normal 78-391 [facility] Comment on above: Performed By: #### C BCDIF, WSR, FT4, IGA, CMP, LIPA, LIPB, TSH, CRP, TGIGA, GLIAD, TGIGG ####[facility] [place], [place] [phone] Lipaseon 01-26-2019 Lipase enzyme act/vol 12 U/L Low 16-61 [facility] Comment on above: Result Comment: (NOT E) Reference ranges for this patient's age group have not been established. These reference ranges reflect verified or established ranges for the adult population. Interpret these ranges with caution using the clinical context and additional reference resources. Performed By: #### C BCDIF, WSR, FT4, IGA, CMP, LIPA, LIPB, TSH, CRP, TGIGA, GLIAD, TGIGG ####[address] [phone] Lipid Panel, [place] 019 Cholesterol in HDL mass conc 44 mg/dL Low >45 [facility] Comment on above: Result Comment: >45 mg/dL, Acceptable 40-45 mg/dL, Borderline <40 mg/dL, Low Performed By: #### C BCDIF, WSR, FT4, IGA, CMP, LIPA, LIPB, TSH, CRP, TGIGA, GLIAD, TGIGG ####[address] [phone] Cholesterol in LDL mass conc 32 mg/dL Normal <110 [facility] Comment on above: Result Comment: <110 mg/dL, Acceptable 110-129 mg/dL, Borderline high >129 mg/dL, High Performed By: #### C BCDIF, WSR, FT4, IGA, CMP, LIPA, LIPB, TSH, CRP, TGIGA, GLIAD, TGIGG ####[place] [address] [place], [place] [phone] Cholesterol mass conc 142 mg/dL Normal <170 [facility] Comment on above: Result Comment: <170 mg/dL, Acceptable 170-199 mg/dL, Borderline high >199 mg/dL, High Performed By: #### C BCDIF, WSR, FT4, IGA, CMP, LIPA, LIPB, TSH, CRP, TGIGA, GLIAD, TGIGG ####[address] [phone] Fasting Time Unknown Normal [facility] Comment on above: Performed By: #### C BCDIF, WSR, FT4, IGA, CMP, LIPA, LIPB, TSH, CRP, TGIGA, GLIAD, TGIGG ####[address] [phone] LDL:HDL Ratio 0.73 Normal <2.42 [facility] Comment on above: Result Comment: Emma villa: 1. Expert Panel on Integrated Guidelines for Cardiovascular Health and Risk Reduction in Children and Adolescents: National Heart, Lung and Blood [place]. Pediatrics. 2011: 128(Suppl 5):P667-467. Performed By: #### C BCDIF, WSR, FT4, IGA, CMP, LIPA, LIPB, TSH, CRP, TGIGA, GLIAD, TGIGG ####[place] [phone] Non HDL Cholesterol 98 mg/dL Normal <120 [facility] Comment on above: Result Comment: <120 mg/dL, Acceptable 120-144 mg/dL, Borderline high >144 mg/dL, High Performed By: #### C BCDIF, WSR, FT4, IGA, CMP, LIPA, LIPB, TSH, CRP, TGIGA, GLIAD, TGIGG ####[address] [phone] TC:HDL Ratio 3.23 Normal <3.76 [facility] Comment on above: Performed By: #### C BCDIF, WSR, FT4, IGA, CMP, LIPA, LIPB, TSH, CRP, TGIGA, GLIAD, TGIGG ####[place] [phone] Triglyceride mass conc 330 mg/dL High <90 [facility] Comment on above: Result Comment: <90 mg/dL, Acceptable 90-129 mg/dL, Borderline high >129 mg/dL, High Performed By: #### C BCDIF, WSR, FT4, IGA, CMP, LIPA, LIPB, TSH, CRP, TGIGA, GLIAD, TGIGG ####[facility] [place], [place] [phone] VLDL Cholesterol 66 mg/dL High <18 [facility] Comment on above: Performed By: #### C BCDIF, WSR, FT4, IGA, CMP, LIPA, LIPB, TSH, CRP, TGIGA, GLIAD, TGIGG ####[facility] [place], [place] [phone] OPERATIVE NOon 01-26-2019 OPERATIVE NO HNO ID: [id number] Author: Mayra Hicks) MD [place] Service: Pediatric Gastroenterology Author Type: Physician Type: Operative Report Filed: 01/26/2019 8:45 AM Note Text: OPERATIVE/PROCEDURE REPORT LOG ID: [id number] SURGERY/PROCEDURE DATE: 01/26/2019 INCISION/PROCEDURE START TIME: 8:04 AM INCISION CLOSE/PROCEDURE END TIME: 8:40 AM SURGEON(S)/PROCEDURALIS T(S) AND ART EDUCATION PROFESSOR(S): Surgeon(s) and Role: * Mayra Hicks) MD [place] - Primary * Elvi (Lina) Mine Melendez MD - Fellow No Additional Staff SURGERY/PROCEDURE(S): EGD and colonoscopy ANESTHESIA: Choice - Anesthesia Consult SURGERY/PROCEDURE DETAILS: EGD Operative findings: Normal visual EGD. The esophageal, gastric and duodenal mucosa were visually normal. The LES was at 38 cm from the incisors. No evidence of hiatal hernia. Operative indications: diarrhea Operative procedure: After obtaining informed consent , the patient was brought to [facility] and placed in the supine position. General anesthesia was achieved and after completing the time-out procedure the GIF-190 endoscope was successfully advanced through the oropharynx under direct visualization into the esophagus without difficulty. The endoscope was then advanced throughout the entire length of the esophagus into the stomach where a pool of non-bloody, non-bilious gastric fluids was aspirated. The endoscope was advanced along the greater curvature of the stomach into the antrum. The pylorus was indentified and easily intubated. The endoscope was then advanced into the 2nd/3rd portion of the duodenum. Biopsies were obtained from the duodenum, the gastric antrum, the body of the stomach, and 2-3 cm above the LES in the esophagus. The endoscope was removed from the patient and the patient was then positioned for the colonoscopy Colonoscopy Operative findings: Normal visual colonoscopy. The preparation was good and 20 % of the colonic mucosa was not visualized well. The terminal ileum was visualized and appeared normal. The entire colonic mucosa appeared normal. No ulcerations, erosions, or polyps were seen. Operative indications: diarrhea Operative procedure: The PCF-q180al colonoscope was inserted into the rectum and slowly advanced under direct visualization throughout the entire length of the colon, with minimal difficulty. The ileocecal valve was identified and easily intubated. Biopsies were taken after careful and close observation of the mucosa throughout, and biopsies were taken from the terminal ileum, ascending colon, transverse colon, descending colon, sigmoid colon, and the rectum. After complete observation of the mucosa and biopsies had been taken, the colonoscope was then removed from the patient. The patient was awakened from anesthesia and transported to PACU in stable condition. PRE-OP/PRE-PROCEDURE DIAGNOSIS: diarrhea POST-OP/POST-PROCEDURE DIAGNOSIS: * No post-op diagnosis entered * diarrhea ESTIMATED BLOOD LOSS: 0 ml SPECIMENS: 2x duodenum, 4x stomach, 2x esophagus, 2x terminal ileum, right colon, transverse, left colon, rectum IMPLANTABLE DEVICES: None DRAINS: None COMPLICATIONS: None PARTICIPATION IN SURGERY/PROCEDURE: I performed the entire procedure. SIGNATURE: Mayra Caro MD PATIENT NAME: Hank Bryan DATE: January 26, 2019 TIME: 8:43 AM PAGER/CONTACT #: Ozzy [facility] PT EDon 01-26-2019 PT ED HNO ID: [id number] Author: Lois (Rn) CLIVE Robertson Service: Nursing Author Type: Registered Nurse Type: Patient Education Filed: 01/26/2019 9:22 AM Note Text: PATIENT EDUCATION TOPIC: PROCEDURE / SURGERY: Post Procedure Teaching: Symptom Management PATIENT NAME: Hank Bryan PATIENT LOCATION: [place] [address] READINESS TO LEARN COGNITIVE ABILITY: Alert and oriented MOTIVATION TO LEARN: Eager FAMILY SUPPORT: High - Very involved in pt care INSTRUCTION PROVIDED TO: Parents PATIENT LEARNS BEST BY: Written Instruction - Hand-outs Verbal Instruction FACTORS AFFECTING LEARNING: None PHYSICAL LIMITATIONS AFFECTING LEARNING: None LEARNING RESPONSE DIAGNOSIS: PEDIATRIC: PATIENT/FAMILY RESPONSE: Verbalizes understanding of: SYMPTOM MANAGEMENT-Correct actions to take to manage symptoms associated with his/her disease/illness METHOD OF INSTRUCTION: Written instruction - handouts Verbal instruction FOLLOW-UP PLAN: Follow up phone call. INSTRUCTIONAL AIDS USED: NA SUPPLEMENTAL MATERIAL PROVIDED TO PATIENT: None REFERRAL (RECOMMENDATION): None Electronically Signed By: Lois Robertson RN Normal [facility] PT ED HNO ID: [id number] Author: Sade Flowers (Rn) CLIVE Serrato Service: ? Author Type: Registered Nurse Type: Patient Education Filed: 01/26/2019 7:05 AM Note Text: PRE OP LEARNING ASSESSMENT PROCEDURE/SURGERY: SURGERY: EGD AND COLONOSCOPY READINESS TO LEARN COGNITIVE ABILITY: Alert and oriented MOTIVATION TO LEARN: Eager FAMILY SUPPORT: High - Very involved in pt care PATIENT LEARNS BEST BY: Verbal Instruction FACTORS AFFECTING LEARNING: None PHYSICAL LIMITATIONS AFFECTING LEARNING: None Electronically Signed By: Sade Serrato RN In Department: HOSP MAIN M020 Normal [facility] SURGICAL PATHOLOGYon 019 SURGICAL PATHOLOGY Specimen originated from [facility] Specimen #: [id number] Submitting Physician: MAYRA CARO MD FINAL DIAGNOSIS 1. Duodenum, biopsy (A) - Duodenal mucosa with no significant diagnostic abnormality. - Morphologic features of celiac disease are not seen. 2. Stomach, biopsy (B) - Mild chronic inactive gastritis. - No morphologic evidence of H. pylori organisms. 3. Esophagus, biopsy (C) - Squamous epithelium with no significant diagnostic abnormality. - Morphologic features of eosinophilic esophagitis are not seen. 4. Terminal ileum, biopsy (D) - Ileal mucosa with no significant diagnostic abnormality. 5. Right colon, biopsy (E) - Colonic mucosa with no significant diagnostic abnormality. - No 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 6. Transverse colon, biopsy (F) - Colonic mucosa with no significant diagnostic abnormality. - No 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 7. Left colon, biopsy (G) - Colonic mucosa with no significant diagnostic abnormality. - No 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 8. Rectum, biopsy (H) - Rectal mucosa with no significant diagnostic abnormality. - No 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 JJ/ka 01/27/2019 Gloria Romo M.D. (Electronic Signature) SPECIMEN SUBMITTED A: DUODENUM, BIOPSY B: STOMACH, BIOPSY C: ESOPHAGUS, BIOPSY D: TERMINAL ILEUM, BIOPSY E: RIGHT COLON, BIOPSY F: TRANSVERSE COLON, BIOPSY G: LEFT COLON, BIOPSY H: RECTUM, BIOPSY CLINICAL DATA POST PRANDIAL ABDOMINAL PAIN, NAUSEA, VOMITING, DIARRHEA GROSS DESCRIPTION A. Received in formalin are two pieces of hines, soft tissue aggregating to 0.3 x 0.3 x 0.1 cm. Totally submitted in one cassette. B. Received in formalin are multiple pieces of hines, soft tissue aggregating to 0.6 x 0.2 x 0.2 cm. Totally submitted in one cassette. C. Received in formalin are two pieces of hines, soft tissue aggregating to 0.1 x 0.1 x 0.1 cm. Totally submitted in one cassette. D. Received in formalin are two pieces of hines, soft tissue aggregating to 0.4 x 0.2 x 0.2 cm. Totally submitted in one cassette. E. Received in formalin are two pieces of hines, soft tissue aggregating to 0.6 x 0.1 x 0.1 cm. Totally submitted in one cassette. F. Received in formalin are two pieces of hines, soft tissue aggregating to 0.5 x 0.1 x 0.1 cm. Totally submitted in one cassette. G. Received in formalin are two pieces of hines, soft tissue aggregating to 0.6 x 0.2 x 0.1 cm. Totally submitted in one cassette. H. Received in formalin are two pieces of hines, soft tissue aggregating to 0.4 x 0.2 x 0.2 cm. Totally submitted in one cassette. Gross examination performed at [facility], [address] [place] [address] RVW 01/26/2019 4:23:58 PM Date of Report: 01/27/2019 Date of Procedure: 01/26/2019 Date of Receipt: 01/26/2019 Submitted by: MAYRA CARO MD Location: [facility] Diagnostic interpretation performed at [facility], [address] [place] [address], [place] [address]. CLIA Number: [id number] Normal [facility] Sed Rate Westergrenon 2018 Sed Rate Westergren 5 mm/hr Normal 0-20 [facility] Comment on above: Performed By: #### C BCDIF, WSR, FT4, IGA, CMP, LIPA, LIPB, TSH, CRP, TGIGA, GLIAD, TGIGG ####[address] [place], [place] [phone] TSHon 01-26-2019 Thyrotropin Qn 4.280 uU/mL Normal 0.510-4.300 [facility] [place] Comment on above: Result Comment: Refe rence ranges were not locally established for this patient's age group. The normal values are based on the following source: Sushila W, [place]. Reference Ranges for Adults and Children: Pre-analytical Considerations. [facility] Performed By: #### C BCDIF, WSR, FT4, IGA, CMP, LIPA, LIPB, TSH, CRP, TGIGA, GLIAD, TGIGG ####[address] [place], [place] [phone] Transglutaminase IgAon 01-26 Transglutaminase IgA 2 Units Normal <[address] [facility] Comment on above: Result Comment: Nega tive : < 20 Units Weak Positive : 20 - 30 Units Moderate Pos to Strong Pos: >30 Units The following results were obtained with the [employer] QUANTA Lite h-tTG IgA NASIM. h-tTG IgA values obtained with different manufacturers' assay methods may not be used interchangeably. The magnitude of the reported IgA levels cannot be correlated to an endpoint titer. Performed By: #### C BCDIF, WSR, FT4, IGA, CMP, LIPA, LIPB, TSH, CRP, TGIGA, GLIAD, TGIGG ####[facility] [place], [place] [phone] Transglutaminase IgGon 01-26 Transglutaminase IgG 3 Units Normal <[address] [facility] Comment on above: Result Comment: Nega tive : < 20 Units Weak Positive : 20 - 30 Units Moderate Pos to Strong Pos: >30 Units The following results were obtained with the [employer] QUANTA Lite h-hTG IgG NASIM. h-tTG IgG values obtained with different manufacturers' assay methods may not be used interchangeably. The magnitude of the reported IgG levels cannot be correlated to an endpoint titer. Performed By: #### C BCDIF, WSR, FT4, IGA, CMP, LIPA, LIPB, TSH, CRP, TGIGA, GLIAD, TGIGG ####[facility] [place], [place] [phone] CNOVon 01-04-2019 CNOV Office Visit (PGASMN ) HANK BRYAN ([id number]) 4 F Date Time Provider Department 01/04/19 10:00 AM MAYRA CARO) PGAN During your visit today, we recorded the following information about you: Temperature Pulse Respiration Blood pressure 97.7 degrees 88/minute 19/minute 128/69 Weight Height Last Period 114.8 kg 1.58 m 12/22/18 Tita Pillai Ma 01/04/2019 9:46 AM Signed Time required to prepare patient and parent/s for examination greater than 5 mins Mayra Caro MD, MD 01/05/2019 10:36 AM Addendum Referring MD: This patient was referred by Enrico Ceballos MD for evaluation and management of abdominal complaints and our recommendations will be communicated back (either as a letter or via electronic medical record delivery) to Enrico Ceballos MD. HPI: Hank Bryan is a 18 year old female with history of asthma being seen today in new consultation in pediatric GI clinic secondary to issues with post-prandial abdominal pain, nausea, vomiting and diarrhea. The history is obtained from the mother, stepfather, and patient. Hank's symptoms began about 7 months ago which have been consistent but not progressive. Every time she eats, she becomes nauseated and has to run to the bathroom to either vomit or have diarrhea. Vomiting can be several times and she can be in the bathroom for up to an hour with cramps and diarrhea. She is having allocations clerk stools (5 am). Stools are soft, not painful to pass, without hematochezia or melena. Family has given Imodium for diarrhea which helps a little. Emesis is undigested food which she has eaten but no blood or bile. Abdominal pain is sharp and typically localizes to the right upper quadrant. Zofran prescribed by PCP sometimes helps with emesis. There are foods that are more exacerbating than others, however she typically eats fatty foods like fried potatoes. She is skipping breakfast most mornings, and sometimes dinner. She was asymptomatic prior to 7 months ago. She would stool about once a day which was non-painful. She will take ibuprofen for menses which are regular and last about 4 days, monthly. She is not missing school because of symptoms. She has stress with school. Currently is in 10th grade and is an A+ student. 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 She has poor sleep, typically will nap from 6 pm until 10 pm and then wake up and complete homework until 1 am before going back to sleep. She reports no weight loss, joint pains, rashes or mouth sores. No easy bruising. She reportedly has had work up by her PCP Dr. Ceballos. Care Everywhere shows that she had a CT chest abdomen pelvis and EKG for abdominal pain 09/2018, which was only notable for lung nodules and increased number mesenteric lymph nodes. KUB reports normal stool burden. She reported had an abdominal ultrasound last year but results are not in Care everywhere and family is not aware of any findings. Hank was referred to [facility] peds pulmonology for lung nodules and history of asthma. Nodules now thought to be post infectious. Peds Pulm referred to Peds GI for further management. Blood work was also collected by PCP, however results are not available. Also around the time that symptoms began, she was referred to an restaurant line server who diagnosed seasonal allergies. She began allergy shots. Shots are now spaced out to every 3 weeks, there is no change in frequency of symptoms. Review Of Systems: GENERAL:Negative for malaise, significant weight loss and fever HEENT:No changes in hearing or vision, no nose bleeds or other nasal problems,Negative for frequent or significant headaches NECK:Negative for lumps, goiter, pain and significant neck swelling RESPIRATORY:Negative for cough, wheezing and shortness of breath CARDIOVASCULAR: Negative for chest pain, leg swelling,palpitations GASTROINTESTINAL:See HPI GENITOURINARY:Negative for dysuria, frequency and incontinence MUSCULOSKELETAL:Negativ e for joint pain or swelling, back pain, and muscle pain. NEUROLOGIC:Negative for focal numbness or weakness, headaches and dizziness. SKIN:Negative for lesions, rash, and itching. PSYCHIATRIC:Negative for sleep disturbance, mood disorder and recent psychosocial stressors. HEMATOLOGIC/LYMPHATIC/I MMUNOLOGIC:Negative for prolonged bleeding, bruising easily, and swollen nodes. ENDOCRINE:Negative for cold or heat intolerance, polyuria, polydipsia and goiter. All other systems reviewed and negative. Past Medical History: No pediatric history on file. PAST MEDICAL HISTORY Diagnosis Date - Anxiety - Environmental allergies - Multiple food allergies Medications: ondansetron orally disintegrating (ZOFRAN ODT) 4 mg disintegrating tablet Take 4 mg by mouth every 8 hours as needed. albuterol HFA (VENTOLIN HFA) 90 mcg/actuation inhaler Inhale 2 Puffs as instructed. Allergies: ALLERGIES Allergen Reactions - Dust Hives swelling, redness, itching - Grass Pollen Hives swelling, redness, itching - Trees Hives eye redness, itching, swelling Surgical: PAST SURGICAL HISTORY Procedure Laterality Date - REMOVE TONSILS/ADENOIDS,<12 Y/O Immunizations: UTD Family History: No family history of: Crohn's disease Ulcerative colitis Celiac disease GERD, PUD GI polyps, GI cancers IBS Thyroid disease Cystic fibrosis FAMILY HISTORY Problem Relation Age of Onset - other (sleep apnea) Paternal Uncle - No Known Problems Mother Social History: Lives at home with MomFannie, 2 sisters and 2 brother. 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 Smoking Exposure: Life Stress: School stress Physical Exam: 01/04/19 0944 BP: 128/69 Pulse: 88 Resp: 19 Temp: 36.5 ?C (97.7 ?F) TempSrc: Temporal Weight: 114.8 kg (253 lb) Height: 158 cm (5' 2.21 ) Wt 114.8 kg (253 lb) BMI 45.97 kg/m2 (>99 %ile (Z= 2.52) based on CDC (Girls, 2-20 Years) [id number] data using vitals from 01/04/2019.)(>99 %ile (Z= 2.56) based on CDC (Girls, 2-20 Years) BMI-for-age based on BMI available as of 01/04/2019.) Last 5 Encounter Wt Readings: Date: Wt: 01/04/2019 114.8 kg (253 lb) (>99 %, Z= 2.52)* 12/08/2018 114.9 kg (253 lb 4.9 oz) (>99 %, Z= 2.53)* 12/01/2018 15.5 kg (34 lb 2.7 oz) (<1 %, Z= -27.33)* 12/01/2018 115.5 kg (254 lb 10.1 oz) (>99 %, Z= 2.54)* General/Constitutional: - alert and active in no apparent distress, obese Psychiatric: Normal affect. Appropriately dressed, good eye contact Eyes:- negative for scleral icterus, EOMI, no conjunctival palor ENMT: Normal set ears, no nasal discharge, moist mucous membranes, no thyroid palpable Cardiac:- Regular Rate and Rhythm, no gallops, rubs, or murmurs, Peripheral pulses +2 in all 4 quadrants Respiratory:- clear to auscultation, no rales, wheezes or crackles. Gastrointestinal:- soft, NTTP,organ size not appreciable due to patient adoposity, BS+ Hematologic/Lymphatic: No lymphadenopathy /Recal :- deferred exam Musculoskeletal:- full range of motion, no joint swelling or tenderness Skin:-no jaundice noted, acanthosis nigricans on nape of neck, striae on stomach Neurological: Normal range of movement Labs/Imaging: No available labs to review CT Abdomen/Pelvis 09/22/2018: FINDINGS: LUNG BASES: 11 mm spiculated subpleural nodule right lower lobe axial image 17. Additional ill-defined 6 mm nodule in the right middle lobe axial image 3 LIVER: No enlargement, atrophy, abnormal density, or significant focal lesion. BILIARY: No visible dilatation or calcification. PANCREAS: No lesion, fluid collection, ductal dilatation, or atrophy. SPLEEN: No enlargement or focal lesion. ADRENALS: No mass or enlargement. KIDNEYS: No mass, obstruction, or calcification. BOWEL/MESENTERY: No visible mass, obstruction, or bowel wall thickening. AORTA/VASCULAR: No aneurysm or dissection. RETROPERITONEUM: No mass or adenopathy. LYMPH NODES: Increased number of normal size mesenteric lymph nodes Previous labs were reviewed in detail. Previous imaging was reviewed in detail. Impression: Hank Bryan is a 18 year old female with asthma and seasonal allergies being seen today in new consultation in pediatric GI clinic secondary to issues with post-prandial abdominal pain, nausea and vomiting of 7 months duration. Previous work up not able to be reviewed aside from imaging reports. Reportedly she had an ultrasound however there is no report of this. She remains obese and does not report significant weight loss. Chronicity of symptoms warrants further work up including repeat lab work, complete abdominal ultrasound, and EGD and colonoscopy. RUQ pain following fatty meals could indicate cholecystitis. CT scan did not show gallstones however, we will reassess with US. Other causes of abdominal pain including celiac disease and thyroid disease were discussed and will be evaluated with lab work. Inflammatory bowel disease will be ruled out with inflammatory markers and endoscopy. Given asthma and obesity, patient will need to have procedures done in the OR. Consent signed today. Labs can be obtained at time of endoscopy. Lastly, stress from school exacerbated by poor sleep hygiene may be a contributing factor. We discussed the topic of anxiety contributing to abdominal pain and other bowel symptoms. We recommended seeking out counseling. Family wishes to avoid medication for anxiety if possible. Plan: (R19.7) Diarrhea, unspecified type (primary encounter diagnosis) (R11.2) Intractable vomiting with nausea, unspecified vomiting type (R10.11) Right upper quadrant abdominal pain - Labs as below (can be drawn at time of endoscopy Orders reviewed today include: Office Visit on 01/04/19 - US ABDOMEN COMPLETE - CBC + DIFF - COMP METABOLIC PANEL - SED RATE WESTERGREN - LIPASE BLD - T4 FREE/FREE THYROX - TSH BLD - LIPID PANEL BASIC - GLIADIN (DEAMINATED) ABS - TRANSGLUTAMINASE IGG - TRANSGLUTAMINASE IGA - IGA BLD - C-REACTIVE PROTEIN (CRP) - SURGICAL REQUEST - ELECTIVE - Colonoscopy and EGD ordered and consent signed today by Mom - Prep instructions given to patient and discussed Meds ordered today include: none Follow up 4-6 weeks (after US and endoscopies) or sooner if issues arise Justus Byrd MD Pediatric Gastroenterology Fellow Pager: [phone] 01/04/19 9:51 AM Staff Addendum Resident and Fellow's history reviewed. Patient interviewed and examined. Examination of patient was repeated by me. Assessment and plan reviewed with resident and fellow. Labs/tests and impression documented and and I confirm/revise the differential diagnosis. See note for further details. I have personally examined the patient and repeated the montaño components of the exam/history. The assessment and plan were formulated and discussed with the resident/fellow. Mayra Caro MD Staff Pediatric Gastroenterology January 05, 2019 10:35 AM CC: Enrico Ceballos MD [address] [place] [id number] Justus Byrd MD 01/04/2019 10:53 AM Addendum Thank you for seeing us today - Lab work today include, blood cell counts, liver enzymes, electrolytes, inflammatory markers, celiac disease markers, thyroid function tests - Imaging studies today Complete abdominal ultrasound to assess her gallbladder, liver, kidneys and pancreas - We would like to order an upper endoscopy and colonoscopy given how long she has had symptoms for. - COLONOSCOPY PREP INSTRUCTIONS Your doctor has scheduled a colonoscopy. In order for this to be done well, the bowel needs to be cleaned out of all the stool. After considering your status and in discussion with you it was decided that you should proceed with the following prep prior to the procedure. MIRALAX PREP: ---The day before the procedure, nothing solid to eat, only clear fluids and the more the better ---A few days prior to the procedure, purchase at the drugstore: Dulcolax tablets (5 mg) and Miralax (255gm bottle) PREP: Day prior to the colonoscopy Throughout the day, it is extremely important to drink lots of fluid until bedtime. Nothing to drink after midnight. This will aid with cleaning out the bowel and to keep you hydrated. Goal is about 8-16 oz of fluid (see list below) every hour. We expect that the stool will not only be watery at the end of the cleanout but when visualized, almost colorless without any solid material. At 2 pm: 2 Dulcolax tablets (10mg) At 4PM: Liquid portion: Mix Miralax Prep Fluid = 15 capfuls (255 gm) of Miralax dissolved in 64oz of fluid ---Fluid can be any liquid that is not red, orange, or purple (Gatorade, lemonade, water) Drink 8oz of fluid every 15 minutes until all gone (will usually take 2-3 hours, max) At 8PM: 2 Dulcolax tablets (10mg) Day of the procedure: You may have clear liquids up until midnight prior to your scheduled examination time then nothing by mouth until after the procedure is performed. Call the office if any signs of being ill, or any problems with prep. If you have a cold or fever due to a cold, your procedure will need to be cancelled. Call us if any of this occurs: [phone] CLEAR LIQUIDS INCLUDE: Strained fruit juices without pulp (apple, white, grape, lemonade) Water Clear broth or bouillon Coffee or tea (without milk or creamers) 7up Gingerale All of the following that are not colored red or orange Gatorade or similar beverages Clear carbonated and non-carbonated soft drinks Eber-Aid (or other fruit flavored drinks) Flavored Jell-o (without added fruits or toppings) Ice popsicles THINGS TO KNOW ABOUT YOUR ENDOSCOPY/COLONOSCOPY O Follow all preparation instructions as given to you by your physician. If you have any questions or problems regarding your preparation, contact your physicians? office to discuss. O If you are scheduled for a colonoscopy and are unable to tolerate your prep, contact the physician?s office to discuss alternate options. If you are calling the office after 5pm, ask for the Pediatric GI Fellow drilling contractor. Failure to complete your prep may result in the cancellation of your procedure for that day. O If you have a cough or cold symptoms the week prior to your procedure, contact your physicians? office. These symptoms may require your procedure to be postponed until the illness has resolved. O Females age 10 and older should come in prepared to submit a urine sample on the morning of your procedure. Inability to submit a urine sample will result in a delay of your procedure start time. O A legal guardian must be present on the day of a procedure. A consent form is required to be signed by a parent or legal guardian for all minor children. O All patients undergoing a procedure with sedation or anesthesia are required to have a chair car driver present. Procedures will not be performed if a chair car driver is not available. O It is advised on procedure days that patients not attend school, work or participate in physical activities for the remainder of the day. O Please be advised that there will be no one present at the front loader residential driver to check you in between 7:00 am and 8:00 am. We are aware of your procedure time. Have a seat in the waiting area and someone will be with you. O If you have any questions regarding your procedure, feel free to contact your physician?s office. Office hours are Friday through Friday, 8:00am to 5:00pm. If you are calling the office after 5pm, ask for the Pediatric GI Fellow drilling contractor. O The afternoon before your scheduled procedure, call after 2:00pm, but before 5:00pm, to receive your pre-operative time and procedure time. - We would like to see you back in 4-6 weeks for follow up - Please call back sooner if you have questions or if new symptoms arise Referring Provider: ISABEL ALEXIS [[id number]] Allergies As of Date: 01/04/2019 Noted Allergy Reaction DUST 12/01/2018 4 - Hives Comments: swelling, redness, itching GRASS POLLEN 12/01/2018 4 - Hives Comments: swelling, redness, itching TREES 12/01/2018 4 - Hives Comments: eye redness, itching, swelling Date Reviewed: 01/04/2019 Reviewed by: Justus Byrd (Fel) - Fully Assessed Reason for Visit: New Patient Evaluation [154] Cmt: nausea when eating Reason For Visit History Recorded Primary Visit Diagnosis:Diarrhea, unspecified type [R19.7] Other Visit Diagnoses:Intractable vomiting with nausea, unspecified vomiting type [R11.2] Right upper quadrant abdominal pain [R10.11] Order(s):CBC + DIFF [SQCBCDIF] Order #: [id number] FUTURE COMP METABOLIC PANEL [SQCMP] Order #: [id number] FUTURE SED RATE WESTERGREN [SQWSR] Order #: [id number] FUTURE LIPASE BLD [SQLIPA] Order #: [id number] FUTURE T4 FREE/FREE THYROX [SQFT4] Order #: [id number] FUTURE TSH BLD [SQTSH] Order #: [id number] FUTURE LIPID PANEL BASIC [SQLIPB] Order #: [id number] FUTURE GLIADIN (DEAMINATED) ABS [SQGLIAD] Order #: [id number] FUTURE TRANSGLUTAMINASE IGG [SQTGIGG] Order #: [id number] FUTURE TRANSGLUTAMINASE IGA [SQTGIGA] Order #: [id number] FUTURE IGA BLD [SQIGA] Order #: [id number] FUTURE US ABDOMEN COMPLETE [0881003-FTY] Order #: [id number] FUTURE SURGICAL REQUEST - ELECTIVE [6300049] Order #: [id number]: 1 C-REACTIVE PROTEIN (CRP) [SQCRP] Order #: [id number] FUTURE Prescriptions as of 01/04/2019 Sig: ONDANSETRON 4 MG DISINTEGRATI* Take 4 mg by mouth every 8 ho* ALBUTEROL SULFATE HFA 90 MCG/* Inhale 2 Puffs as instructed. Problem List As Of Date 01/04/2019 Noted Resolved Lung nodules [R91.8] INVALID FOR* Mild intermittent asthma without complication [*INVALID FOR* Generalized abdominal pain [R10.84] INVALID FOR* Palpitations [R00.2] INVALID FOR* Other instructions from your clinician: Thank you for seeing us today - Lab work today include, blood cell counts, liver enzymes, electrolytes, inflammatory markers, celiac disease markers, thyroid function tests - Imaging studies today Complete abdominal ultrasound to assess her gallbladder, liver, kidneys and pancreas - We would like to order an upper endoscopy and colonoscopy given how long she has had symptoms for. - COLONOSCOPY PREP INSTRUCTIONS Your doctor has scheduled a colonoscopy. In order for this to be done well, the bowel needs to be cleaned out of all the stool. After considering your status and in discussion with you it was decided that you should proceed with the following prep prior to the procedure. MIRALAX PREP: ---The day before the procedure, nothing solid to eat, only clear fluids and the more the better ---A few days prior to the procedure, purchase at the drugstore: Dulcolax tablets (5 mg) and Miralax (255gm bottle) PREP: Day prior to the colonoscopy Throughout the day, it is extremely important to drink lots of fluid until bedtime. Nothing to drink after midnight. This will aid with cleaning out the bowel and to keep you hydrated. Goal is about 8-16 oz of fluid (see list below) every hour. We expect that the stool will not only be watery at the end of the cleanout but when visualized, almost colorless without any solid material. At 2 pm: 2 Dulcolax tablets (10mg) At 4PM: Liquid portion: Mix Miralax Prep Fluid = 15 capfuls (255 gm) of Miralax dissolved in 64oz of fluid ---Fluid can be any liquid that is not red, orange, or purple (Gatorade, lemonade, water) Drink 8oz of fluid every 15 minutes until all gone (will usually take 2-3 hours, max) At 8PM: 2 Dulcolax tablets (10mg) Day of the procedure: You may have clear liquids up until midnight prior to your scheduled examination time then nothing by mouth until after the procedure is performed. Call the office if any signs of being ill, or any problems with prep. If you have a cold or fever due to a cold, your procedure will need to be cancelled. Call us if any of this occurs: [phone] CLEAR LIQUIDS INCLUDE: Strained fruit juices without pulp (apple, white, grape, lemonade) Water Clear broth or bouillon Coffee or tea (without milk or creamers) 7up Gingerale All of the following that are not colored red or orange Gatorade or similar beverages Clear carbonated and non-carbonated soft drinks Eber-Aid (or other fruit flavored drinks) Flavored Jell-o (without added fruits or toppings) Ice popsicles THINGS TO KNOW ABOUT YOUR ENDOSCOPY/COLONOSCOPY O Follow all preparation instructions as given to you by your physician. If you have any questions or problems regarding your preparation, contact your physicians? office to discuss. O If you are scheduled for a colonoscopy and are unable to tolerate your prep, contact the physician?s office to discuss alternate options. If you are calling the office after 5pm, ask for the Pediatric GI Fellow drilling contractor. Failure to complete your prep may result in the cancellation of your procedure for that day. O If you have a cough or cold symptoms the week prior to your procedure, contact your physicians? office. These symptoms may require your procedure to be postponed until the illness has resolved. O Females age 10 and older should come in prepared to submit a urine sample on the morning of your procedure. Inability to submit a urine sample will result in a delay of your procedure start time. O A legal guardian must be present on the day of a procedure. A consent form is required to be signed by a parent or legal guardian for all minor children. O All patients undergoing a procedure with sedation or anesthesia are required to have a chair car driver present. Procedures will not be performed if a chair car driver is not available. O It is advised on procedure days that patients not attend school, work or participate in physical activities for the remainder of the day. O Please be advised that there will be no one present at the front loader residential driver to check you in between 7:00 am and 8:00 am. We are aware of your procedure time. Have a seat in the waiting area and someone will be with you. O If you have any questions regarding your procedure, feel free to contact your physician?s office. Office hours are Friday through Friday, 8:00am to 5:00pm. If you are calling the office after 5pm, ask for the Pediatric GI Fellow drilling contractor. O The afternoon before your scheduled procedure, call after 2:00pm, but before 5:00pm, to receive your pre-operative time and procedure time. - We would like to see you back in 4-6 weeks for follow up - Please call back sooner if you have questions or if new symptoms arise Visit Notes: >> Tita Pillai Ma FriJan 04, 2019 9:45 AM Status: Signed Time required to prepare patient and parent/s for examination greater than 5 mins Disposition: Return in about 6 weeks (around 02/15/2019). Follow-up and Disposition History Recorded Letter Text Encounter Status:Closed by MAYRA CARO MD on 01/05/19 [facility] HISTORY PHYSICALon HISTORY PHYSICAL HNO ID: [id number] Author: Mayra Hicks) MD Gordo Service: ? Author Type: Physician Type: HANDP Filed: 01/05/2019 10:36 AM Note Text: Referring MD: This patient was referred by Enrico Ceballos MD for evaluation and management of abdominal complaints and our recommendations will be communicated back (either as a letter or via electronic medical record delivery) to Enrico Ceballos MD. HPI: Hank Bryan is a 18 year old female with history of asthma being seen today in new consultation in pediatric GI clinic secondary to issues with post-prandial abdominal pain, nausea, vomiting and diarrhea. The history is obtained from the mother, stepfather, and patient. Hank's symptoms began about 7 months ago which have been consistent but not progressive. Every time she eats, she becomes nauseated and has to run to the bathroom to either vomit or have diarrhea. Vomiting can be several times and she can be in the bathroom for up to an hour with cramps and diarrhea. She is having allocations clerk stools (5 am). Stools are soft, not painful to pass, without hematochezia or melena. Family has given Imodium for diarrhea which helps a little. Emesis is undigested food which she has eaten but no blood or bile. Abdominal pain is sharp and typically localizes to the right upper quadrant. Zofran prescribed by PCP sometimes helps with emesis. There are foods that are more exacerbating than others, however she typically eats fatty foods like fried potatoes. She is skipping breakfast most mornings, and sometimes dinner. She was asymptomatic prior to 7 months ago. She would stool about once a day which was non-painful. She will take ibuprofen for menses which are regular and last about 4 days, monthly. She is not missing school because of symptoms. She has stress with school. Currently is in 10th grade and is an A+ student. 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 She has poor sleep, typically will nap from 6 pm until 10 pm and then wake up and complete homework until 1 am before going back to sleep. She reports no weight loss, joint pains, rashes or mouth sores. No easy bruising. She reportedly has had work up by her PCP Dr. Ceballos. Care Everywhere shows that she had a CT chest abdomen pelvis and EKG for abdominal pain 09/2018, which was only notable for lung nodules and increased number mesenteric lymph nodes. KUB reports normal stool burden. She reported had an abdominal ultrasound last year but results are not in Care everywhere and family is not aware of any findings. Hank was referred to [facility] peds pulmonology for lung nodules and history of asthma. Nodules now thought to be post infectious. Peds Pulm referred to Peds GI for further management. Blood work was also collected by PCP, however results are not available. Also around the time that symptoms began, she was referred to an restaurant line server who diagnosed seasonal allergies. She began allergy shots. Shots are now spaced out to every 3 weeks, there is no change in frequency of symptoms. Review Of Systems: GENERAL:Negative for malaise, significant weight loss and fever HEENT:No changes in hearing or vision, no nose bleeds or other nasal problems,Negative for frequent or significant headaches NECK:Negative for lumps, goiter, pain and significant neck swelling RESPIRATORY:Negative for cough, wheezing and shortness of breath CARDIOVASCULAR: Negative for chest pain, leg swelling,palpitations GASTROINTESTINAL:See HPI GENITOURINARY:Negative for dysuria, frequency and incontinence MUSCULOSKELETAL:Negativ e for joint pain or swelling, back pain, and muscle pain. NEUROLOGIC:Negative for focal numbness or weakness, headaches and dizziness. SKIN:Negative for lesions, rash, and itching. PSYCHIATRIC:Negative for sleep disturbance, mood disorder and recent psychosocial stressors. HEMATOLOGIC/LYMPHATIC/I MMUNOLOGIC:Negative for prolonged bleeding, bruising easily, and swollen nodes. ENDOCRINE:Negative for cold or heat intolerance, polyuria, polydipsia and goiter. All other systems reviewed and negative. Past Medical History: No pediatric history on file. PAST MEDICAL HISTORY Diagnosis Date - Anxiety - Environmental allergies - Multiple food allergies Medications: ondansetron orally disintegrating (ZOFRAN ODT) 4 mg disintegrating tablet Take 4 mg by mouth every 8 hours as needed. albuterol HFA (VENTOLIN HFA) 90 mcg/actuation inhaler Inhale 2 Puffs as instructed. Allergies: ALLERGIES Allergen Reactions - Dust Hives swelling, redness, itching - Grass Pollen Hives swelling, redness, itching - Trees Hives eye redness, itching, swelling Surgical: PAST SURGICAL HISTORY Procedure Laterality Date - REMOVE TONSILS/ADENOIDS,<12 Y/O Immunizations: UTD Family History: No family history of: Crohn's disease Ulcerative colitis Celiac disease GERD, PUD GI polyps, GI cancers IBS Thyroid disease Cystic fibrosis FAMILY HISTORY Problem Relation Age of Onset - other (sleep apnea) Paternal Uncle - No Known Problems Mother Social History: Lives at home with Mom, Fannie, 2 sisters and 2 brother. 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 Smoking Exposure: Life Stress: School stress Physical Exam: 01/04/19 0944 BP: 128/69 Pulse: 88 Resp: 19 Temp: 36.5 ?C (97.7 ?F) TempSrc: Temporal Weight: 114.8 kg (253 lb) Height: 158 cm (5' 2.21 ) Wt 114.8 kg (253 lb) BMI 45.97 kg/m2 (>99 %ile (Z= 2.52) based on CDC (Girls, 2-20 Years) atozfs-dbx-yci data using vitals from 01/04/2019.)(>99 %ile (Z= 2.56) based on CDC (Girls, 2-20 Years) BMI-for-age based on BMI available as of 01/04/2019.) Last 5 Encounter Wt Readings: Date: Wt: 01/04/2019 114.8 kg (253 lb) (>99 %, Z= 2.52)* 12/08/2018 114.9 kg (253 lb 4.9 oz) (>99 %, Z= 2.53)* 12/01/2018 15.5 kg (34 lb 2.7 oz) (<1 %, Z= -27.33)* 12/01/2018 115.5 kg (254 lb 10.1 oz) (>99 %, Z= 2.54)* General/Constitutional: - alert and active in no apparent distress, obese Psychiatric: Normal affect. Appropriately dressed, good eye contact Eyes:- negative for scleral icterus, EOMI, no conjunctival palor ENMT: Normal set ears, no nasal discharge, moist mucous membranes, no thyroid palpable Cardiac:- Regular Rate and Rhythm, no gallops, rubs, or murmurs, Peripheral pulses +2 in all 4 quadrants Respiratory:- clear to auscultation, no rales, wheezes or crackles. Gastrointestinal:- soft, NTTP,organ size not appreciable due to patient adoposity, BS+ Hematologic/Lymphatic: No lymphadenopathy /Recal :- deferred exam Musculoskeletal:- full range of motion, no joint swelling or tenderness Skin:-no jaundice noted, acanthosis nigricans on nape of neck, striae on stomach Neurological: Normal range of movement Labs/Imaging: No available labs to review CT Abdomen/Pelvis 09/22/2018: FINDINGS: LUNG BASES: 11 mm spiculated subpleural nodule right lower lobe axial image 17. Additional ill-defined 6 mm nodule in the right middle lobe axial image 3 LIVER: No enlargement, atrophy, abnormal density, or significant focal lesion. BILIARY: No visible dilatation or calcification. PANCREAS: No lesion, fluid collection, ductal dilatation, or atrophy. SPLEEN: No enlargement or focal lesion. ADRENALS: No mass or enlargement. KIDNEYS: No mass, obstruction, or calcification. BOWEL/MESENTERY: No visible mass, obstruction, or bowel wall thickening. AORTA/VASCULAR: No aneurysm or dissection. RETROPERITONEUM: No mass or adenopathy. LYMPH NODES: Increased number of normal size mesenteric lymph nodes Previous labs were reviewed in detail. Previous imaging was reviewed in detail. Impression: Hank Bryan is a 18 year old female with asthma and seasonal allergies being seen today in new consultation in pediatric GI clinic secondary to issues with post-prandial abdominal pain, nausea and vomiting of 7 months duration. Previous work up not able to be reviewed aside from imaging reports. Reportedly she had an ultrasound however there is no report of this. She remains obese and does not report significant weight loss. Chronicity of symptoms warrants further work up including repeat lab work, complete abdominal ultrasound, and EGD and colonoscopy. RUQ pain following fatty meals could indicate cholecystitis. CT scan did not show gallstones however, we will reassess with US. Other causes of abdominal pain including celiac disease and thyroid disease were discussed and will be evaluated with lab work. Inflammatory bowel disease will be ruled out with inflammatory markers and endoscopy. Given asthma and obesity, patient will need to have procedures done in the OR. Consent signed today. Labs can be obtained at time of endoscopy. Lastly, stress from school exacerbated by poor sleep hygiene may be a contributing factor. We discussed the topic of anxiety contributing to abdominal pain and other bowel symptoms. We recommended seeking out counseling. Family wishes to avoid medication for anxiety if possible. Plan: (R19.7) Diarrhea, unspecified type (primary encounter diagnosis) (R11.2) Intractable vomiting with nausea, unspecified vomiting type (R10.11) Right upper quadrant abdominal pain - Labs as below (can be drawn at time of endoscopy Orders reviewed today include: Office Visit on 01/04/19 - US ABDOMEN COMPLETE - CBC + DIFF - COMP METABOLIC PANEL - SED RATE WESTERGREN - LIPASE BLD - T4 FREE/FREE THYROX - TSH BLD - LIPID PANEL BASIC - GLIADIN (DEAMINATED) ABS - TRANSGLUTAMINASE IGG - TRANSGLUTAMINASE IGA - IGA BLD - C-REACTIVE PROTEIN (CRP) - SURGICAL REQUEST - ELECTIVE - Colonoscopy and EGD ordered and consent signed today by [facility] [place] - Prep instructions given to patient and discussed Meds ordered today include: none Follow up 4-6 weeks (after US and endoscopies) or sooner if issues arise Justus Byrd MD Pediatric Gastroenterology Fellow Pager: [phone] 01/04/19 9:51 AM Staff Addendum Resident and Fellow's history reviewed. Patient interviewed and examined. Examination of patient was repeated by me. Assessment and plan reviewed with resident and fellow. Labs/tests and impression documented and and I confirm/revise the differential diagnosis. See note for further details. I have personally examined the patient and repeated the montaño components of the exam/history. The assessment and plan were formulated and discussed with the resident/fellow. Mayra Caro MD Staff Pediatric Gastroenterology January 05, 2019 10:35 AM CC: Enrico Ceballos MD [address] [facility] 01-04-2019 [facility] Patient:Hank Bryan MRN: Height:5' 2.205 (1.58 m) Weight:249 lb 1.9 oz (113 kg) Outpatient Medications as of 01/26/19: ondansetron orally disintegrating (ZOFRAN ODT) 4 mg disintegrating tablet albuterol HFA (VENTOLIN HFA) 90 mcg/actuation inhaler Admission/Clinic Administered Medications as of 01/26/19: lidocaine 4 % topical cream (LMX) Problem List: Lung nodules [R91.8] Mild intermittent asthma without complication [J45.20] Generalized abdominal pain [R10.84] Palpitations [R00.2] Allergies: Dust Grass Pollen Trees Date Verified: 01/26/19 Lab Values No results within the last 30 days for the following basenames: K,HCT Progress Notes (PEDS [facility]): Guerita Wooten Pss 01/25/2019 4:09 PM Signed Mom confirmed surgery with Dr. Caro on 01/26 Arrival time 6:30a and Desk P-20 check in Thank you Progress Notes (PEDS CARD [facility]): All Horne DO 01/02/2019 11:18 AM Signed I updated the Zio-Patch (14-day) rhythm monitor with mom that showed normal findings. Conclusion: Patient had a min HR of 51 bpm, max HR of 178 bpm, and avg HR of 94 bpm. Predominant underlying rhythm was Sinus Rhythm. Isolated SVEs were rare (<1.0%, 121), and no SVE Couplets or SVE Triplets were present. Isolated VEs were rare (<1.0%, 211), and no VE Couplets or VE Triplets were present. Hank had sinus rhythm during the 6 reported events. Based on the reassuring rhythm results and stable clinical status, I would recommend clinical monitoring. Hank can follow-up as needed. From the cardiac standpoint, Hank will not require any activity restrictions nor SBE prophylaxis. Normal [facility] US ABDOMEN COMPLETEon 2018 US ABDOMEN COMPLETE * * *Final Report* * * DATE OF EXAM: Jan 04 2019 1:23PM [facility] [place] [facility] [place] ABDOMEN COMPLETE / PROCEDURE REASON: multiple diagnoses * * * * Physician Interpretation * * * * EXAMINATION: COMPLETE ABDOMINAL ULTRASOUND CLINICAL HISTORY: Right upper quadrant pain TECHNIQUE: Sonography of the abdomen was performed. Images were obtained and stored in a permanent archive. MQ: UAbC_1 COMPARISON: None RESULT: Pancreas: Obscured by gases. Visualized parts of the pancreatic head appear normal. Portions obscured: Body and tail Lesions: None Liver: Echotexture: Normal, homogeneous. Echogenicity: Normal Surface contour: Smooth Lesions: None. Biliary: No intrahepatic biliary duct dilation. CBD: 0.34 cm at the hilum. Gallbladder: Normal caliber -Contents: No cholelithiasis -Wall: Normal -Other: No pericholecystic fluid. Spleen: Craniocaudal length: 10.4 cm Lesions: None Right Kidney: -Renal length: 11.4 cm -Parenchyma: Normal parenchymal echogenicity. Normal parenchymal thickness. -Collecting system: No hydronephrosis. -Calculus: No echogenic, shadowing calculus. -Lesion: None. Left Kidney: -Renal length: 10.7 cm -Parenchyma: Normal parenchymal echogenicity. Normal parenchymal thickness. -Collecting system: No hydronephrosis. -Calculus: No echogenic, shadowing calculus. -Lesion: None. Bladder: Normal. IVC: Imaged segment is patent. Ascites: None IMPRESSION: Pancreas is obscured by gases, otherwise unremarkable ultrasound of the abdomen. Aviation Operations Specialist: VASQUEZ Transcribe Date/Time: Jan 04 2019 1:28P Dictated by : JULIANE LOONEY MD This examination was interpreted and the report reviewed and electronically signed by: JULIANE LOONEY MD on Jan 04 2019 1:31PM EST [id number] Normal [facility] PROGRESSon 12-09-2018 Protein mass conc HNO ID: [id number] Author: Abe Campa Ex Elan Service: ? Author Type: ? Type: Progress Notes Filed: 12/09/2018 7:35 AM Note Text: ZIOPATCH APPLICATION PEDIATRIC CARDIOLOGY -Chest is cleansed and prepped with razor, prep tape, and alcohol. -Ziopatch placed on chest -Ziopatch activated -Instructed parent 1) Diary documentation 2) Usage of event button 3) Maintenance and care of monitor 4) Safety issues with monitor 5) Return unit in 14 days 6) Call with problems [phone] Verbalized understanding of instructions by parent. SIGNATURE: Abe Garzon Lokesh Ex Phys PATIENT NAME: Hank Bryan DATE: December 09, 2018 TIME: 7:34 AM Normal [facility] CNOVon 12-08-2018 CNOV Office Visit ([facility] ) HANK BRYAN ([id number]) 4 F Date Time Provider Department 12/08/18 3:00 PM [facility] [place] During your visit today, we recorded the following information about you: Abe Garzon Lokesh Ex Phys 12/09/2018 7:35 AM Signed ZIOPATCH APPLICATION PEDIATRIC CARDIOLOGY -Chest is cleansed and prepped with razor, prep tape, and alcohol. -Ziopatch placed on chest -Ziopatch activated -Instructed parent 1) Diary documentation 2) Usage of event button 3) Maintenance and care of monitor 4) Safety issues with monitor 5) Return unit in 14 days 6) Call with problems [phone] Verbalized understanding of instructions by parent. SIGNATURE: Abe Garzon Lokesh Ex Phys PATIENT NAME: Hank Bryan DATE: December 09, 2018 TIME: 7:34 AM Referring Provider: ALL HORNE [[id number]] Allergies As of Date: 12/08/2018 Noted Allergy Reaction DUST 12/01/2018 4 - Hives Comments: swelling, redness, itching GRASS POLLEN 12/01/2018 4 - Hives Comments: swelling, redness, itching TREES 12/01/2018 4 - Hives Comments: eye redness, itching, swelling Date Reviewed: 12/08/2018 Reviewed by: All Horne - Fully Assessed Reason for Visit: Holter Monitor Application [261] Cmt: Zio Patch Primary Visit Diagnosis:Palpitations [R00.2] Prescriptions as of 12/08/2018 Sig: ALBUTEROL SULFATE HFA 90 MCG/* Inhale 2 Puffs as instructed. Problem List As Of Date 12/08/2018 Noted Resolved Lung nodules [R91.8] INVALID FOR* Mild intermittent asthma without complication [*INVALID FOR* Generalized abdominal pain [R10.84] INVALID FOR* Palpitations [R00.2] INVALID FOR* Encounter Status:Closed by ABE HERMOSILLO on 12/09/18 Normal [facility] CNOV Office Visit ([facility] ) HANK BRYAN ([id number]) 4 F Date Time Provider Department 12/08/18 3:00 PM ALL HORNE [facility] During your visit today, we recorded the following information about you: Pulse Respiration Blood pressure Weight 102/minute 22/minute 137/82 114.9 kg Height 1.575 m All Horne DO 12/08/2018 3:[address] Enrico Ceballos MD: Consultation requested by Dr. Isabel Alexis MD for an opinion regarding palpitations on Hank Randi. My final recommendations will be communicated back to the requesting physician by way of shared Medical record or letter to requesting physician via EMR, fax or US mail. It has been a pleasure to visit with Hank Bryan, who is a 18 year old 5 month old female patient at [facility], on 12/08/18. Hank was referred for evaluation of palpitations that has been present for ~1 year. Hank and her family consider severity of these episodes as mild to moderate. These episodes have occurred up to ~2 times a week and lasting minutes up to several hours. Hank cannot identify any specific triggers, including physical activities, and she cannot identify any specific exacerbating or alleviating factors. Onset and termination of the episode were abrupt and gradual. Hank complains shortness without dizziness / syncope or chest pain associate these episodes. Hank never had palpitation, chest pain, syncope nor early fatigue associated with her physical activities. The above history was obtained from Hank her mom and MGM. REVIEW OF SYSTEMS: Hank had history of asthma that flared up ~1 year ago. After allergy / pulmonary evaluation and management, her asthma has been under controlled recently. She had a recent chest CT that showed a few pulmonary nodules of unclear significance, which are being followed by Dr. Alexis. Urine output and bowel movements have been normal. All other systems were reviewed and are negative. PAST MEDICAL HISTORY: ACTIVE PROBLEM LIST Lung Nodules Mild Intermittent Asthma Without Complication Generalized Abdominal Pain Palpitations FAMILY (CARDIAC) HISTORY: No family history of congenital heart disease, early (before 40 year-old) CAD, cardiomyopathy, Long QT syndrome, unexplained or early sudden or arrhythmias. FAMILY HISTORY: OTHER FAMILY HISTORY Problem Relation Age of Onset - other (sleep apnea) Paternal Uncle SOCIAL HISTORY: Patient Guardian Status Mother: Christine Bryan Other Topics Concern None on file Social History Narrative None on file IMMUNIZATION: UTD. ALLERGIES Allergen Reactions - Dust Hives swelling, redness, itching - Grass Pollen Hives swelling, redness, itching - Trees Hives eye redness, itching, swelling CURRENT MEDICATION: albuterol HFA (VENTOLIN HFA) 90 mcg/actuation inhaler Inhale 2 Puffs as instructed. OBJECTIVE DATA: 12/08/18 1439 12/08/18 1527 BP: 158/98 137/82 BP Site: Right Leg Right Arm BP Position: Sitting Sitting BP Cuff Size: Thigh Large Adult Pulse: 114 102 Resp: 22 Weight: 114.9 kg (253 lb 4.9 oz) Height: 157.5 cm (5' 2 ) PHYSICAL EXAMINATION: General appearance: Hank is well-appearing, cooperative, acyanotic and in no acute distress. HEENT: Normacephalic / atraumatic. Mucous membranes are pink and moist. Neck is supple. No thyromegaly or neck mass. Conjunctivae are clear. There is no jugular venous distention. No dysmorphic facial features. No periorbital edema. Respiratory: Lungs are clear to auscultation bilaterally, without increased efforts. Cardiovascular: A comprehensive cardiovascular exam was performed. Precordium is normoactive. Distal pulses are 2+ throughout with normal perfusion. Heart sound: Regular rate and rhythm with normal S1 and S2 split. Hank does not have any clicks, gallops or rubs. Murmur: Systole and diastole are clear. Abdomen: Soft, nontender and nondistended. No hepatosplenomegaly. Extremities: Warm and well perfused without cyanosis, extremity / finger nail clubbing or edema. Skin: no rash, petechiae or ecchymosis. NEURO: Moving all extremities. No gross sensory or motor deficits. MSK: no pectus. SPECIAL INVESTIGATIONS: EKG (12/08/18): I personally reviewed and interpreted the findings. Normal sinus rhythm (rate: 94 bpm). QTc is normal at 430 msec. No evidence of chamber enlargement or ventricular hypertrophy. No evidence of ventricular pre-excitation. IMPRESSION AND RECOMMENDATIONS: Hank Bryan is a 18 year old 5 month old female patient with history of intermittent palpitation. Hank is otherwise clinically stable. The cardiac evaluation today did not suggest anatomical heart disease, but the story was suggestive of dysarrhythmia. Therefore I recommended a Zio-Patch (up to 2 weeks) rhythm monitor study with today's visit. I will update the family when the monitor results become available. If she had any abnormal monitor findings, I will make additional recommendations, as needed. In the meantime Hank will not require any SBE prophylaxis or any activity restrictions. Based on her evaluation today, she does not need to follow-up at the cardiology clinic unless additional symptoms should arise or she had abnormal rhythm findings. Of note, her blood pressure today was mildly elevated. The blood pressure measurements continued to improve as the clinic proceeded. During her evaluation, I did not detect any evidence of chronic systemic hypertension (i.e. Left ventricular hypertrophy) or congenital heart disease (i.e. Coarctation of aorta). By history, she never had history of elevated blood pressure. Based on these findings, I suspect there might an element of White Coat Syndrome. Therefore, I would only recommend clinical monitoring at this time without any additional interventions. If you have any additional questions or concerns, please do not hesitate to contact us. Thank you for the consultation. Yours Jagdish galdamez D.O., PhD [facility] All Papo, DO 12/08/2018 3:15 PM Signed Diagnosis: palpitations. Normal cardiac evaluation. Heart palpitations are the uncomfortable sensation that your heart is beating fast or irregularly. You might feel pounding or fluttering in your chest. It might feel like your heart is skipping a beat. Although palpitations may be caused by a heart problem, they also occur because of stress, fatigue, or use of alcohol, caffeine, or nicotine. Many medicines, including diet pills, antihistamines, decongestants, and some herbal products, can cause heart palpitations. Nearly everyone has palpitations from time to time. Plan: Zio-Patch (up to 2-weeks) rhythm monitor. Dr. Horne will update family when results become available in 3-4 weeks. No scheduled follow-up necessary with cardiology unless additional symptoms should arise or abnormal rhythm monitor results. No activity restrictions. No antibiotic before dental procedures (No SBE prophylaxis). How can you care for yourself at home? ? Avoid caffeine, nicotine, and excess alcohol. ? Do not take illegal drugs, such as methamphetamines and cocaine. ? Do not take weight loss or diet medicines unless you talk with your doctor first. ? Get plenty of sleep. ? Do not overeat. ? If you have palpitations again, take deep breaths and try to relax. This may slow a racing heart. ? If you start to feel lightheaded, lie down to avoid injuries that might result if you pass out and fall down. ? Keep a record of your palpitations and bring it to your next doctor's appointment. Write down: ? The date and time. ? Your pulse. (If your heart is beating fast, it may be hard to count your pulse.) ? What you were doing when the palpitations started. ? How long the palpitations lasted. ? Any other symptoms. ? If an activity causes palpitations, slow down or stop. Talk to your doctor before you do that activity again. Referring Provider: ISABEL ALEXIS [[id number]] Allergies As of Date: 12/08/2018 Noted Allergy Reaction DUST 12/01/2018 4 - Hives Comments: swelling, redness, itching GRASS POLLEN 12/01/2018 4 - Hives Comments: swelling, redness, itching TREES 12/01/2018 4 - Hives Comments: eye redness, itching, swelling Date Reviewed: 12/08/2018 Reviewed by: All Horne - Fully Assessed Reason for Visit: Palpitations [79] Primary Visit Diagnosis:Palpitations [R00.2] Order(s):OUTSIDE VENDOR CARDIAC OUTPATIENT EXTENDED RHYTHM RECORDING (WITHOUT TELEMETRY) [[id number]] Order #: [id number]: 1 Prescriptions as of 12/08/2018 Sig: ALBUTEROL SULFATE HFA 90 MCG/* Inhale 2 Puffs as instructed. Problem List As Of Date 12/08/2018 Noted Resolved Lung nodules [R91.8] INVALID FOR* Mild intermittent asthma without complication [*INVALID FOR* Generalized abdominal pain [R10.84] INVALID FOR* Palpitations [R00.2] INVALID FOR* Other instructions from your clinician: Diagnosis: palpitations. Normal cardiac evaluation. Heart palpitations are the uncomfortable sensation that your heart is beating fast or irregularly. You might feel pounding or fluttering in your chest. It might feel like your heart is skipping a beat. Although palpitations may be caused by a heart problem, they also occur because of stress, fatigue, or use of alcohol, caffeine, or nicotine. Many medicines, including diet pills, antihistamines, decongestants, and some herbal products, can cause heart palpitations. Nearly everyone has palpitations from time to time. Plan: Zio-Patch (up to 2-weeks) rhythm monitor. Dr. Horne will update family when results become available in 3-4 weeks. No scheduled follow-up necessary with cardiology unless additional symptoms should arise or abnormal rhythm monitor results. No activity restrictions. No antibiotic before dental procedures (No SBE prophylaxis). How can you care for yourself at home? ? Avoid caffeine, nicotine, and excess alcohol. ? Do not take illegal drugs, such as methamphetamines and cocaine. ? Do not take weight loss or diet medicines unless you talk with your doctor first. ? Get plenty of sleep. ? Do not overeat. ? If you have palpitations again, take deep breaths and try to relax. This may slow a racing heart. ? If you start to feel lightheaded, lie down to avoid injuries that might result if you pass out and fall down. ? Keep a record of your palpitations and bring it to your next doctor's appointment. Write down: ? The date and time. ? Your pulse. (If your heart is beating fast, it may be hard to count your pulse.) ? What you were doing when the palpitations started. ? How long the palpitations lasted. ? Any other symptoms. ? If an activity causes palpitations, slow down or stop. Talk to your doctor before you do that activity again. Disposition: Return if symptoms worsen or fail to improve. Follow-up and Disposition History Recorded Letter Text Encounter Status:Closed by ALL HORNE DO on 12/08/18 [facility] ECG COMPLETEon 12-08-2018 ECG COMPLETE NAME : HANK BRYAN PID : [id number] : 2000 Gender : Female Race : Unknown ORD : [id number] Procedure Date : Dec 08 2018 14:50:13 Edit Date : Dec 09 2018 08:29:13 Diagnosis:NORMAL SINUS RHYTHM NORMAL ECG Confirmed by ALL HORNE D.O. ([id number]) on 12/09/2018 8:29:08 AM Ventricular Rate : 94 BPM Atrial Rate : 94 BPM P-R Interval : 152 ms QRS Duration : 82 ms Q-T Interval : 344 ms QTC Calculation(Bezet) : 430 ms P Han[place] : 34 degrees R Han[place] : 13 degrees T [place] : 18 degrees Test Reason : Location : 224 : FVPED Overread By : ALL HORNE D.O. Edited By : ALL HORNE D.O. Referred By : ALL HORNE Acquired by : Ozzy HUSTON [facility] PROCEDUREon 12-08-2018 Protein mass conc HNO ID: [id number] Author: Chino Aguirre Service: ? Author Type: Physician Type: Procedures Filed: 01/01/2019 1:36 PM Note Text: Patient had a min HR of 51 bpm, max HR of 178 bpm, and avg HR of 94 bpm. Predominant underlying rhythm was Sinus Rhythm. Isolated SVEs were rare (<1.0%, 121), and no SVE Couplets or SVE Triplets were present. Isolated VEs were rare (<1.0%, 211), and no VE Couplets or VE Triplets were present. Chino Aguirre MD, [facility] [[email or web address]] Pediatric Electrophysiology [facility] January 01, 2019, 1:35 PM Normal [facility] PROGRESSon 12-08-2018 Protein mass conc HNO ID: [id number] Author: All Horne Service: ? Author Type: Physician Type: Progress Notes Filed: 12/08/2018 3:34 PM Note Text: Dear Dr. Enrico Ceballos MD: Consultation requested by Dr. Isabel Alexis MD for an opinion regarding palpitations on Hank Bryan. My final recommendations will be communicated back to the requesting physician by way of shared Medical record or letter to requesting physician via EMR, fax or [place] mail. It has been a pleasure to visit with Hank Bryan, who is a 18 year old 5 month old female patient at [facility], on 12/08/18. Hank was referred for evaluation of palpitations that has been present for ~1 year. Hank and her family consider severity of these episodes as mild to moderate. These episodes have occurred up to ~2 times a week and lasting minutes up to several hours. Hank cannot identify any specific triggers, including physical activities, and she cannot identify any specific exacerbating or alleviating factors. Onset and termination of the episode were abrupt and gradual. Hank complains shortness without dizziness / syncope or chest pain associate these episodes. Hank never had palpitation, chest pain, syncope nor early fatigue associated with her physical activities. The above history was obtained from Hank her mom and [employer]. REVIEW OF SYSTEMS: Hank had history of asthma that flared up ~1 year ago. After allergy / pulmonary evaluation and management, her asthma has been under controlled recently. She had a recent chest CT that showed a few pulmonary nodules of unclear significance, which are being followed by Dr. Alexis. Urine output and bowel movements have been normal. All other systems were reviewed and are negative. PAST MEDICAL HISTORY: ACTIVE PROBLEM LIST Lung Nodules Mild Intermittent Asthma Without Complication Generalized Abdominal Pain Palpitations FAMILY (CARDIAC) HISTORY: No family history of congenital heart disease, early (before 40 year-old) CAD, cardiomyopathy, Long QT syndrome, unexplained or early sudden or arrhythmias. FAMILY HISTORY: OTHER FAMILY HISTORY Problem Relation Age of Onset - other (sleep apnea) Paternal Uncle SOCIAL HISTORY: Patient Guardian Status Mother: Christine Bryan Other Topics Concern None on file Social History Narrative None on file IMMUNIZATION: UTD. ALLERGIES Allergen Reactions - Dust Hives swelling, redness, itching - Grass Pollen Hives swelling, redness, itching - Trees Hives eye redness, itching, swelling CURRENT MEDICATION: albuterol HFA (VENTOLIN HFA) 90 mcg/actuation inhaler Inhale 2 Puffs as instructed. OBJECTIVE DATA: 12/08/18 1439 12/08/18 1527 BP: 158/98 137/82 BP Site: Right Leg Right Arm BP Position: Sitting Sitting BP Cuff Size: Thigh Large Adult Pulse: 114 102 Resp: 22 Weight: 114.9 kg (253 lb 4.9 oz) Height: 157.5 cm (5' 2 ) PHYSICAL EXAMINATION: General appearance: Audia is well-appearing, cooperative, acyanotic and in no acute distress. HEENT: Normacephalic / atraumatic. Mucous membranes are pink and moist. Neck is supple. No thyromegaly or neck mass. Conjunctivae are clear. There is no jugular venous distention. No dysmorphic facial features. No periorbital edema. Respiratory: Lungs are clear to auscultation bilaterally, without increased efforts. Cardiovascular: A comprehensive cardiovascular exam was performed. Precordium is normoactive. Distal pulses are 2+ throughout with normal perfusion. Heart sound: Regular rate and rhythm with normal S1 and S2 split. Audia does not have any clicks, gallops or rubs. Murmur: Systole and diastole are clear. Abdomen: Soft, nontender and nondistended. No hepatosplenomegaly. Extremities: Warm and well perfused without cyanosis, extremity / finger nail clubbing or edema. Skin: no rash, petechiae or ecchymosis. NEURO: Moving all extremities. No gross sensory or motor deficits. MSK: no pectus. SPECIAL INVESTIGATIONS: EKG (12/08/18): I personally reviewed and interpreted the findings. Normal sinus rhythm (rate: 94 bpm). QTc is normal at 430 msec. No evidence of chamber enlargement or ventricular hypertrophy. No evidence of ventricular pre-excitation. IMPRESSION AND RECOMMENDATIONS: Hank Bryan is a 18 year old 5 month old female patient with history of intermittent palpitation. Hank is otherwise clinically stable. The cardiac evaluation today did not suggest anatomical heart disease, but the story was suggestive of dysarrhythmia. Therefore I recommended a Zio-Patch (up to 2 weeks) rhythm monitor study with today's visit. I will update the family when the monitor results become available. If she had any abnormal monitor findings, I will make additional recommendations, as needed. In the meantime Hank will not require any SBE prophylaxis or any activity restrictions. Based on her evaluation today, she does not need to follow-up at the cardiology clinic unless additional symptoms should arise or she had abnormal rhythm findings. Of note, her blood pressure today was mildly elevated. The blood pressure measurements continued to improve as the clinic proceeded. During her evaluation, I did not detect any evidence of chronic systemic hypertension (i.e. Left ventricular hypertrophy) or congenital heart disease (i.e. Coarctation of aorta). By history, she never had history of elevated blood pressure. Based on these findings, I suspect there might an element of White Coat Syndrome. Therefore, I would only recommend clinical monitoring at this time without any additional interventions. If you have any additional questions or concerns, please do not hesitate to contact us. Thank you for the consultation. Yours truly, CGeoff Horne D.O., PhD [facility] CNOVon 12-01-2018 CNOV Office Visit (PEPUAV ) HANK BRYAN ([id number]) 4 F Date Time Provider Department 12/01/18 1:00 PM ISABEL ALEXIS During your visit today, we recorded the following information about you: Temperature Respiration Blood pressure Weight 97.2 degrees 16/minute 128/72 15.5 kg Height Last Period 1.59 m 11/28/18 Isabel Alexis MD, MD 12/01/2018 3:13 PM Signed Hank is a 18 year old female referred by Enrico Ceballos MD for initial [facility] consult of shortness of breath, lung nodules. My final recommendations will be communicated back to the requesting physician by way of shared Medical record or letter to requesting physician via US mail. History is obtained from Mother and Patient who is/are good historian(s). HPI/RESPIRATORY SYMPTOMS: Hank is a 18 year old female who has had asthma since she was very young and more recently (within the past year or so) - her asthma began to act up. Now having almost daily Symptoms that have gotten better over the past 6 months - she started getting allergy shots at that time. She used to take Symbicort - but not taking with the allergy shots. About 1 month ago had some abdominal pain, eventually had a CT scan and was found to have a couple of pulmonary nodules (? 13 mm and 4 mm - both reported on the right lung). Otherwise has some mild asthma symptoms that have been very well controlled with recent institution of allergy immunotherapy, to the point that she no longer takes controller therapy. She is here today for an evaluation of the pulmonary nodules. 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 Other than her mild asthma symptoms (mostly shortness of breath) 1-2 x a month she has no respiratory symptoms. There are no coughing, wheezing, exercise intolerance, chest pain, nocturnal cough. Triggers / exacerbating factors for her symptoms seem to include: exercise, upper respiratory infections. Other alleviating factors seem to include: albuterol Other pertinent history of present illness includes: over the past few months she has had intermittent abdominal pain and diahrrea as well as occasional palpitations which are prolonged (last for hours) with HR in the 160's. Previous evaluation has included CXR, Chest CT and MRI (unclear of what organs/body parts). Her current symptoms include: Cough - 1-2 x a month; Wheezing - none; SOB - 1-2 x a month She does not have prolonged coughing with a URI (2-3 weeks duration). She does not have frequent nocturnal coughing when not acutely ill with respiratory illness. She has the following symptoms with exercise: shortness of breath. These symptoms occur: 1-2 x a month. These symptoms are completely relieved with Albuterol. She has had 0 emergency room visit(s) for respiratory symptoms. She has had 0 hospitalizations for her symptoms. She has not required admission to the PICU. She has not required intubation for asthma. PMH: No pediatric history on file. PAST MEDICAL HISTORY Diagnosis Date - Anxiety - Environmental allergies - Multiple food allergies No past surgical history on file. ALLERGIES: ALLERGIES Allergen Reactions - Dust Hives swelling, redness, itching - Grass Pollen Hives swelling, redness, itching - Trees Hives eye redness, itching, swelling IMMUNIZATIONS: not up to date - Needs: Influenza - declined Current Medications No current outpatient prescriptions on file. No current facility-administered medications for this visit. FH: FAMILY HISTORY Problem Relation Age of Onset - other (sleep apnea) Paternal Uncle Negative for: Asthma Allergic Rhinitis CHD CF TB Autoimmune Disease Immunodeficiency GERD HIV or cancer chemotherapy SH: Lives with both parents Environmental history: Pets in the home: 3 dogs, 1 pigs, 3 lizards Maria Isabel: [id number] carpeting, Hardwood floor, Tile Air conditioning: Window air conditioning Heating: Forced hot air Basement: Dry basement Dust mite controls: Dust mite controls are not in place. Tobacco smoke: No exposure in the home. REVIEW OF SYSTEMS: GENERAL: fatigue, especially since starting to have the palpitations, there is no daytime sleepiness/somnolence, frequent nighttime awakening, sadness and poor school performance HEENT: frequent or significant headaches, frequent watery, itchy eyes, frequent rhinorrhea, frequent/chronic nasal congestion, post nasal drip, or nose bleeds before immunotherapy, there is no Negative, recurrent or chronic otitis media, recurrent or chronic sinusitis, snoring RESPIRATORY: Mild intermittent asthma and recent CT scan reportedly with two pulmonary nodules, there is no BPD/CLD, bronchiolitis, cyanosis, pneumonia, pneumothorax, nocturnal cough CARDIOVASCULAR: palpitations, fatigue and rare chest tightness, HR about 165 , there is no murmur exercise intolerance syncope GI: obese, frequent abdominal pain, episodic tenesmus and diarrhea, there is no loose, fatty, or foul smelling stools excessive flatulence sour burps heartburn hiccups constipation cough/choke with eating/drinking : Negative MUSCULOSKELETAL: Negative SKIN: Negative, there is no eczema frequent rash frequent skin infections PSYCH: Negative HEMATOLOGY/LYMPHOLOGY: Negative ENDOCRINE: Negative NEUROLOGIC: Occasional dizziness when hiking expensively in the distant past, but none for the past year or so. All other SYSTEMS were reviewed and are NEGATIVE. PHYSICAL EXAM: BP 128/72 Temp 36.2 ?C (97.2 ?F) (Temporal Artery) Resp 16 Ht 159 cm (5' 2.6 ) Wt 15.5 kg (34 lb 2.7 oz) LMP 11/28/2018 (Exact Date) SpO2 99% BMI 6.13 kg/m? GENERAL APPEARANCE: Well developed, well nourished, alert, active, no respiratory distress and cooperative SKIN: Normal, Without lesions or rash HEENT: No abnormalities of the head noted. EYES: PERRL, EOMI EAR: TMs translucent NASAL EXAM: Normal mucosa OROPHARYNX:Normal tonsils, palate intact and mucous membranes pink and moist NECK: Supple, No adenopathy CARDIAC:regular rate and rhythm, no murmur and radial pulses equal and 2+ CHEST: normal respiratory rate and rhythm, chest symmetric with normal A/P diameter, no chest deformities noted, no chest wall tenderness, diaphragmatic excursion normal and lungs clear to auscultation, there is no wheezing , crackles , rhonchi , prolonged expiration, rales , tachypnea ABDOMEN: obese abdomen soft and nontender. liver edge 2 cm below the right costal margin. no spleen tip palpable. no other masses EXTREMITIES: There is no evidence of clubbing, edema or cyanosis. Warm and well perfused NEURO/MUSCULOSKELETAL:A wake, alert, normal tone and cooperative TODAY'S LABS AND EVALUATION: Pulmonary Function Testing: Spirometry done (12/01/2018): Results: Pre Bronchodilator Spirometry: FVC 97%; FEV1 95 %; FEV1/FVC 89 %; PCA27-04 110 % Impression: Spirometry: normal ASSESSMENT: Encounter Diagnosis ICD-10-CM 1. Lung nodules R91.8 SPIROMETRY WITH DILATOR IF OBSTRUCTED 2. Mild intermittent asthma without complication J45.20 3. Generalized abdominal pain R10.84 4. Palpitations R00.2 Audia is a 18 year old female with a h/o mild persistent, now intermittent asthma and a CT with reported pulmonary nodules (images currently not available): ? The most likely etiology for the nodules is post infectious or post inflammatory; she has been hiking and camping in Hist[place] endemic regions of [place]. However, I can't make a true assessment until I can review the images. ? There are no symptoms concerning for other granulomatous or nodular diseases such as: TB, NTM, malignancy, acute infection ? Mild intermittent asthma that is well controlled ? Other conditions complicating her underlying problem includes: allergic rhinitis that is well controlled with immunotherapy ? She also has palpitations, fatigue and abdominal pain with episodic diarrhea that I do not have a diagnosis for ? Other potential conditions that may be playing a role and need to be evaluated include: ? Evaluate for arrhythmia and IBS/IBD . ? The following comorbid conditions have been evaluated, monitored or treated by me or one of my colleagues and may be contibuting to this patient's primary condition : intermittent asthma, abdominal pain, fatigue and palpitations PLAN: 1. I recommended the following diagnostic testing: ? Imaging / Studies: None, will need to review images already obtained (family has sent these to my office but they have yet to uploaded to the EMR) ? Laboratory evaluation: None ? Consultations: Peds Cardiology for palpitations AND fatigue, Peds GI for abdominal pain and diahrrea 2. I recommended the use of the following medications amelia her asthma ? Albuterol 2 puffs/1 vial Q4 hrs PRN 3. For her other complicating conditions: allergic rhinitis, I recommended taking the following: ? Continue immunotherapy 4. Other changes to your medication regimen: None 5. Patient will most likely need repeat CT scan in 3-6 months to monitor the pulmonary nodules, however this can't be determined until I can review the images 6. I reviewed in detail the pathophysiology and treatment of pulmonary nodules including: ? Medication dosage, usage, side effects, the risks and benefits of inhaled steroids and goals of treatment ? Avoidance of precipitants ? The need to monitor pulmonary imaging for progression of pulmonary nodules over certain intervals 7. Patient education included: ? MDI instruction - reviewed by RT. ? During this patient encounter I have spent 80 minutes with more than 50% of the time devoted to counseling/coordination of care regarding medications, potential complications of disease, test results, testing/laboratory evaluation and treatment options, as detailed in my Assessment/Plan. (I-15, II-30, III-40, IV-60, V-80) ? Previous Records Reviewed and/or Summarized: Yes ? History obtained from someone other than the patient Yes ? Patient discussed with another provider: Yes Follow up in [place] [facility] 3-6 months with spirometry depending on the imaging studies. Call or return sooner if the symptoms worsen, do not improve as expected or new symptoms or problems arise. Thank you for allowing me to assist in the care of Hank. Please do not hesitate to contact me if I can be of further assistance. Isabel Alexis MD [place] [facility] cc: Enrico Ceballos MD [address] [place] [address] Isabel Alexis MD, MD 12/01/2018 1:47 PM Signed ? I suspect she has pulmonary nodules that are bwhat we call post infectious - and nothing to worry about, but I would like to review the CT scan personally before I conclusively say that ? I would like you to come see Dr. Mayra Caro, one of our Gastroenterologists ? I would also like you to see Dr. He Horne, one of our Cardiologists, he goes to a clinic in [place], so that is at least a little bit closer to you ? I will want her to come back in 3-6 months depending on what I see on the CT scan, and I will have it repeated at that visit. ? Don't hesitate to contact me with any questions: OFFICE NUMBER: [phone] Referring Provider: ENRICO CEBALLOS [[id number]] Allergies As of Date: 12/01/2018 Noted Allergy Reaction DUST 12/01/2018 4 - Hives Comments: swelling, redness, itching GRASS POLLEN 12/01/2018 4 - Hives Comments: swelling, redness, itching TREES 12/01/2018 4 - Hives Comments: eye redness, itching, swelling Date Reviewed: 12/01/2018 Reviewed by: Isabel Alexis MD - Fully Assessed Reason for Visit: New Patient [172] Primary Visit Diagnosis:Lung nodules [R91.8] Other Visit Diagnoses:Mild intermittent asthma without complication [J45.20] Generalized abdominal pain [R10.84] Palpitations [R00.2] Order(s):SPIROMETRY WITH DILATOR IF OBSTRUCTED [[id number]] Order #: [id number] FUTURE CONSULT TO PEDS CARDIOLOGY [[id number]] Order #: [id number]: 1 CONSULT TO PEDS GASTRO [[id number]] Order #: [id number]: 1 Problem List As Of Date 12/01/2018 Noted Resolved Lung nodules [R91.8] INVALID FOR* Mild intermittent asthma without complication [*INVALID FOR* Generalized abdominal pain [R10.84] INVALID FOR* Palpitations [R00.2] INVALID FOR* Other instructions from your clinician: ? I suspect she has pulmonary nodules that are bwhat we call post infectious - and nothing to worry about, but I would like to review the CT scan personally before I conclusively say that ? I would like you to come see Dr. Mayra Caro, one of our Gastroenterologists ? I would also like you to see Dr. He Horne, one of our Cardiologists, he goes to a clinic in [place], so that is at least a little bit closer to you ? I will want her to come back in 3-6 months depending on what I see on the CT scan, and I will have it repeated at that visit. ? Don't hesitate to contact me with any questions: OFFICE NUMBER: [phone] Follow-up and Disposition History Recorded Letter Text [facility] [address] [facility]/[place] [address] December 01, 2018 RE: Hank Bryan CC#: [id number] To Whom It May Concern: Please excuse Hank Bryan from school 12/01/2018. She was seen today for a doctor's appointment. Sincerely, Isabel Alexis MD Letter Text [facility] [address] [address] December 01, 2018 Enrico Ceballos MD [address] [place] [address] RE: Hank Bryan CC#: [id number] Dear Dr. Enrico Ceballos MD: I saw your patient, Hank Bryan, in my office at the [facility] on 12/01/2018 for evaluation of her pulmonary nodules. Enclosed is a copy of my examination for your records. Thank you for this referral and please feel free to contact me if you have any further questions regarding this patient. Sincerely, Isabel Alexis MD [phone] Hank is a 18 year old female referred by Enrico Ceballos MD for initial [facility] consult of shortness of breath, lung nodules. My final recommendations will be communicated back to the requesting physician by way of shared Medical record or letter to requesting physician via US mail. History is obtained from Mother and Patient who is/are good historian(s). HPI/RESPIRATORY SYMPTOMS: Hank is a 18 year old female who has had asthma since she was very young and more recently (within the past year or so) - her asthma began to act up. Now having almost daily Symptoms that have gotten better over the past 6 months - she started getting allergy shots at that time. She used to take Symbicort - but not taking with the allergy shots. About 1 month ago had some abdominal pain, eventually had a CT scan and was found to have a couple of pulmonary nodules (? 13 mm and 4 mm - both reported on the right lung). Otherwise has some mild asthma symptoms that have been very well controlled with recent institution of allergy immunotherapy, to the point that she no longer takes controller therapy. She is here today for an evaluation of the pulmonary nodules. 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 Other than her mild asthma symptoms (mostly shortness of breath) 1-2 x a month she has no respiratory symptoms. There are no coughing, wheezing, exercise intolerance, chest pain, nocturnal cough. Triggers / exacerbating factors for her symptoms seem to include: exercise, upper respiratory infections. Other alleviating factors seem to include: albuterol Other pertinent history of present illness includes: over the past few months she has had intermittent abdominal pain and diahrrea as well as occasional palpitations which are prolonged (last for hours) with HR in the 160's. Previous evaluation has included CXR, Chest CT and MRI (unclear of what organs/body parts). Her current symptoms include: Cough - 1-2 x a month; Wheezing - none; SOB - 1-2 x a month She does not have prolonged coughing with a URI (2-3 weeks duration). She does not have frequent nocturnal coughing when not acutely ill with respiratory illness. She has the following symptoms with exercise: shortness of breath. These symptoms occur: 1-2 x a month. These symptoms are completely relieved with Albuterol. She has had 0 emergency room visit(s) for respiratory symptoms. She has had 0 hospitalizations for her symptoms. She has not required admission to the PICU. She has not required intubation for asthma. PMH: No pediatric history on file. PAST MEDICAL HISTORY Diagnosis Date - Anxiety - Environmental allergies - Multiple food allergies No past surgical history on file. ALLERGIES: ALLERGIES Allergen Reactions - Dust Hives swelling, redness, itching - Grass Pollen Hives swelling, redness, itching - Trees Hives eye redness, itching, swelling IMMUNIZATIONS: not up to date - Needs: Influenza - declined Current Medications No current outpatient prescriptions on file. No current facility-administered medications for this visit. FH: FAMILY HISTORY Problem Relation Age of Onset - other (sleep apnea) Paternal Uncle Negative for: Asthma Allergic Rhinitis CHD CF TB Autoimmune Disease Immunodeficiency GERD HIV or cancer chemotherapy SH: Lives with both parents Environmental history: Pets in the home: 3 dogs, 1 pigs, 3 lizards Maria Isabel: [id number] carpeting, Hardwood floor, Tile Air conditioning: Window air conditioning Heating: Forced hot air Basement: Dry basement Dust mite controls: Dust mite controls are not in place. Tobacco smoke: No exposure in the home. REVIEW OF SYSTEMS: GENERAL: fatigue, especially since starting to have the palpitations, there is no daytime sleepiness/somnolence, frequent nighttime awakening, sadness and poor school performance HEENT: frequent or significant headaches, frequent watery, itchy eyes, frequent rhinorrhea, frequent/chronic nasal congestion, post nasal drip, or nose bleeds before immunotherapy, there is no Negative, recurrent or chronic otitis media, recurrent or chronic sinusitis, snoring RESPIRATORY: Mild intermittent asthma and recent CT scan reportedly with two pulmonary nodules, there is no BPD/CLD, bronchiolitis, cyanosis, pneumonia, pneumothorax, nocturnal cough CARDIOVASCULAR: palpitations, fatigue and rare chest tightness, HR about 165 , there is no murmur exercise intolerance syncope GI: obese, frequent abdominal pain, episodic tenesmus and diarrhea, there is no loose, fatty, or foul smelling stools excessive flatulence sour burps heartburn hiccups constipation cough/choke with eating/drinking : Negative MUSCULOSKELETAL: Negative SKIN: Negative, there is no eczema frequent rash frequent skin infections PSYCH: Negative HEMATOLOGY/LYMPHOLOGY: Negative ENDOCRINE: Negative NEUROLOGIC: Occasional dizziness when hiking expensively in the distant past, but none for the past year or so. All other SYSTEMS were reviewed and are NEGATIVE. PHYSICAL EXAM: BP 128/72 Temp 36.2 ?C (97.2 ?F) (Temporal Artery) Resp 16 Ht 159 cm (5' 2.6 ) Wt 15.5 kg (34 lb 2.7 oz) LMP 11/28/2018 (Exact Date) SpO2 99% BMI 6.13 kg/m? GENERAL APPEARANCE: Well developed, well nourished, alert, active, no respiratory distress and cooperative SKIN: Normal, Without lesions or rash HEENT: No abnormalities of the head noted. EYES: PERRL, EOMI EAR: TMs translucent NASAL EXAM: Normal mucosa OROPHARYNX:Normal tonsils, palate intact and mucous membranes pink and moist NECK: Supple, No adenopathy CARDIAC:regular rate and rhythm, no murmur and radial pulses equal and 2+ CHEST: normal respiratory rate and rhythm, chest symmetric with normal A/P diameter, no chest deformities noted, no chest wall tenderness, diaphragmatic excursion normal and lungs clear to auscultation, there is no wheezing , crackles , rhonchi , prolonged expiration, rales , tachypnea ABDOMEN: obese abdomen soft and nontender. liver edge 2 cm below the right costal margin. no spleen tip palpable. no other masses EXTREMITIES: There is no evidence of clubbing, edema or cyanosis. Warm and well perfused NEURO/MUSCULOSKELETAL:A wake, alert, normal tone and cooperative TODAY'S LABS AND EVALUATION: Pulmonary Function Testing: Spirometry done (12/01/2018): Results: Pre Bronchodilator Spirometry: FVC 97%; FEV1 95 %; FEV1/FVC 89 %; AHY95-88 110 % Impression: Spirometry: normal ASSESSMENT: Encounter Diagnosis ICD-10-CM 1. Lung nodules R91.8 SPIROMETRY WITH DILATOR IF OBSTRUCTED 2. Mild intermittent asthma without complication J45.20 3. Generalized abdominal pain R10.84 Audia is a 18 year old female with a h/o mild persistent, now intermittent asthma and a CT with reported pulmonary nodules (images currently not available): The most likely etiology for the nodules is post infectious or post inflammatory; she has been hiking and camping in Histoplasma endemic regions of [place]. However, I can't make a true assessment until I can review the images. There are no symptoms concerning for other granulomatous or nodular diseases such as: TB, NTM, malignancy, acute infection Mild intermittent asthma that is well controlled Other conditions complicating her underlying problem includes: allergic rhinitis that is well controlled with immunotherapy She also has palpitations, fatigue and abdominal pain with episodic diarrhea that I do not have a diagnosis for Other potential conditions that may be playing a role and need to be evaluated include: ? Evaluate for arrhythmia and IBS/IBD . The following comorbid conditions have been evaluated, monitored or treated by me or one of my colleagues and may be contibuting to this patient's primary condition : intermittent asthma, abdominal pain, fatigue and palpitations PLAN: I recommended the following diagnostic testing: Imaging / Studies: None, will need to review images already obtained (family has sent these to my office but they have yet to uploaded to the EMR) Laboratory evaluation: None Consultations: Peds Cardiology for palpitations AND fatigue, Peds GI for abdominal pain and diahrrea I recommended the use of the following medications amelia her asthma Albuterol 2 puffs/1 vial Q4 hrs PRN For her other complicating conditions: allergic rhinitis, I recommended taking the following: Continue immunotherapy Other changes to your medication regimen: None Patient will most likely need repeat CT scan in 3-6 months to monitor the pulmonary nodules, however this can't be determined until I can review the images I reviewed in detail the pathophysiology and treatment of pulmonary nodules including: Medication dosage, usage, side effects, the risks and benefits of inhaled steroids and goals of treatment Avoidance of precipitants The need to monitor pulmonary imaging for progression of pulmonary nodules over certain intervals Patient education included: MDI instruction - reviewed by RT. During this patient encounter I have spent 80 minutes with more than 50% of the time devoted to counseling/coordination of care regarding medications, potential complications of disease, test results, testing/laboratory evaluation and treatment options, as detailed in my Assessment/Plan. (I-15, II-30, III-40, IV-60, V-80) Previous Records Reviewed and/or Summarized: Yes History obtained from someone other than the patient Yes Patient discussed with another provider: Yes [facility] 3-6 months with spirometry depending on the imaging studies. Call or return sooner if the symptoms worsen, do not improve as expected or new symptoms or problems arise. Thank you for allowing me to assist in the care of Hank. Please do not hesitate to contact me if I can be of further assistance. 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 #:[id number] Problem List As Of Date: 12/01/2018 (None) Questionnaire: ASTHMA CONTROL TEST Last 4 weeks, your asthma limited your activity at work or home: -> 4 A LITTLE OF THE TIME Past 4 weeks, how often have you had shortness of breath? -> 4 ONCE OR TWICE A WEEK Past 4 weeks: Asthma symptoms woke you at night or earlier than usual? -> 5 NOT AT ALL Past 4 weeks: How often did you use rescue inhaler or nebulizer med? -> 5 NOT AT ALL Rate your Asthma Control during the past 4 weeks: -> 4 WELL CONTROLLED ACT TOTAL SCORE: -> 22 Encounter Status:Closed by SIMI DE LA ROSA on 12/01/18 Normal [facility] PROGRESSon 12-01-2018 Protein mass conc HNO ID: [id number] Author: Isabel Alexis MD Service: (none) Author Type: Physician Type: Progress Notes Filed: 12/01/2018 3:13 PM Note Text: Hank is a 18 year old female referred by Enrico Ceballos MD for initial [facility] consult of shortness of breath, lung nodules. My final recommendations will be communicated back to the requesting physician by way of shared Medical record or letter to requesting physician via US mail. History is obtained from Mother and Patient who is/are good historian(s). HPI/RESPIRATORY SYMPTOMS: Hank is a 18 year old female who has had asthma since she was very young and more recently (within the past year or so) - her asthma began to act up. Now having almost daily Symptoms that have gotten better over the past 6 months - she started getting allergy shots at that time. She used to take Symbicort - but not taking with the allergy shots. About 1 month ago had some abdominal pain, eventually had a CT scan and was found to have a couple of pulmonary nodules (? 13 mm and 4 mm - both reported on the right lung). Otherwise has some mild asthma symptoms that have been very well controlled with recent institution of allergy immunotherapy, to the point that she no longer takes controller therapy. She is here today for an evaluation of the pulmonary nodules. 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 Other than her mild asthma symptoms (mostly shortness of breath) 1-2 x a month she has no respiratory symptoms. There are no coughing, wheezing, exercise intolerance, chest pain, nocturnal cough. Triggers / exacerbating factors for her symptoms seem to include: exercise, upper respiratory infections. Other alleviating factors seem to include: albuterol Other pertinent history of present illness includes: over the past few months she has had intermittent abdominal pain and diahrrea as well as occasional palpitations which are prolonged (last for hours) with HR in the 160's. Previous evaluation has included CXR, Chest CT and MRI (unclear of what organs/body parts). Her current symptoms include: Cough - 1-2 x a month; Wheezing - none; SOB - 1-2 x a month She does not have prolonged coughing with a URI (2-3 weeks duration). She does not have frequent nocturnal coughing when not acutely ill with respiratory illness. She has the following symptoms with exercise: shortness of breath. These symptoms occur: 1-2 x a month. These symptoms are completely relieved with Albuterol. She has had 0 emergency room visit(s) for respiratory symptoms. She has had 0 hospitalizations for her symptoms. She has not required admission to the PICU. She has not required intubation for asthma. PMH: No pediatric history on file. PAST MEDICAL HISTORY Diagnosis Date - Anxiety - Environmental allergies - Multiple food allergies No past surgical history on file. ALLERGIES: ALLERGIES Allergen Reactions - Dust Hives swelling, redness, itching - Grass Pollen Hives swelling, redness, itching - Trees Hives eye redness, itching, swelling IMMUNIZATIONS: not up to date - Needs: Influenza - declined Current Medications No current outpatient prescriptions on file. No current facility-administered medications for this visit. FH: FAMILY HISTORY Problem Relation Age of Onset - other (sleep apnea) Paternal Uncle Negative for: Asthma Allergic Rhinitis CHD CF TB Autoimmune Disease Immunodeficiency GERD HIV or cancer chemotherapy SH: Lives with both parents Environmental history: Pets in the home: 3 dogs, 1 pigs, 3 lizards Maria Isabel: [id number] carpeting, Hardwood floor, Tile Air conditioning: Window air conditioning Heating: Forced hot air Basement: Dry basement Dust mite controls: Dust mite controls are not in place. Tobacco smoke: No exposure in the home. REVIEW OF SYSTEMS: GENERAL: fatigue, especially since starting to have the palpitations, there is no daytime sleepiness/somnolence, frequent nighttime awakening, sadness and poor school performance HEENT: frequent or significant headaches, frequent watery, itchy eyes, frequent rhinorrhea, frequent/chronic nasal congestion, post nasal drip, or nose bleeds before immunotherapy, there is no Negative, recurrent or chronic otitis media, recurrent or chronic sinusitis, snoring RESPIRATORY: Mild intermittent asthma and recent CT scan reportedly with two pulmonary nodules, there is no BPD/CLD, bronchiolitis, cyanosis, pneumonia, pneumothorax, nocturnal cough CARDIOVASCULAR: palpitations, fatigue and rare chest tightness, HR about 165 , there is no murmur exercise intolerance syncope GI: obese, frequent abdominal pain, episodic tenesmus and diarrhea, there is no loose, fatty, or foul smelling stools excessive flatulence sour burps heartburn hiccups constipation cough/choke with eating/drinking : Negative MUSCULOSKELETAL: Negative SKIN: Negative, there is no eczema frequent rash frequent skin infections PSYCH: Negative HEMATOLOGY/LYMPHOLOGY: Negative ENDOCRINE: Negative NEUROLOGIC: Occasional dizziness when hiking expensively in the distant past, but none for the past year or so. All other SYSTEMS were reviewed and are NEGATIVE. PHYSICAL EXAM: BP 128/72 Temp 36.2 ?C (97.2 ?F) (Temporal Artery) Resp 16 Ht 159 cm (5' 2.6 ) Wt 15.5 kg (34 lb 2.7 oz) LMP 11/28/2018 (Exact Date) SpO2 99% BMI 6.13 kg/m? GENERAL APPEARANCE: Well developed, well nourished, alert, active, no respiratory distress and cooperative SKIN: Normal, Without lesions or rash HEENT: No abnormalities of the head noted. EYES: PERRL, EOMI EAR: TMs translucent NASAL EXAM: Normal mucosa OROPHARYNX:Normal tonsils, palate intact and mucous membranes pink and moist NECK: Supple, No adenopathy CARDIAC:regular rate and rhythm, no murmur and radial pulses equal and 2+ CHEST: normal respiratory rate and rhythm, chest symmetric with normal A/P diameter, no chest deformities noted, no chest wall tenderness, diaphragmatic excursion normal and lungs clear to auscultation, there is no wheezing , crackles , rhonchi , prolonged expiration, rales , tachypnea ABDOMEN: obese abdomen soft and nontender. liver edge 2 cm below the right costal margin. no spleen tip palpable. no other masses EXTREMITIES: There is no evidence of clubbing, edema or cyanosis. Warm and well perfused NEURO/MUSCULOSKELETAL:A wake, alert, normal tone and cooperative TODAY'S LABS AND EVALUATION: Pulmonary Function Testing: Spirometry done (12/01/2018): Results: Pre Bronchodilator Spirometry: FVC 97%; FEV1 95 %; FEV1/FVC 89 %; SCV78-41 110 % Impression: Spirometry: normal ASSESSMENT: Encounter Diagnosis ICD-10-CM 1. Lung nodules R91.8 SPIROMETRY WITH DILATOR IF OBSTRUCTED 2. Mild intermittent asthma without complication J45.20 3. Generalized abdominal pain R10.84 4. Palpitations R00.2 Hank is a 18 year old female with a h/o mild persistent, now intermittent asthma and a CT with reported pulmonary nodules (images currently not available): ? The most likely etiology for the nodules is post infectious or post inflammatory; she has been hiking and camping in [place] endemic regions of [place]. However, I can't make a true assessment until I can review the images. ? There are no symptoms concerning for other granulomatous or nodular diseases such as: TB, NTM, malignancy, acute infection ? Mild intermittent asthma that is well controlled ? Other conditions complicating her underlying problem includes: allergic rhinitis that is well controlled with immunotherapy ? She also has palpitations, fatigue and abdominal pain with episodic diarrhea that I do not have a diagnosis for ? Other potential conditions that may be playing a role and need to be evaluated include: ? Evaluate for arrhythmia and IBS/IBD . ? The following comorbid conditions have been evaluated, monitored or treated by me or one of my colleagues and may be contibuting to this patient's primary condition : intermittent asthma, abdominal pain, fatigue and palpitations PLAN: 1. I recommended the following diagnostic testing: ? Imaging / Studies: None, will need to review images already obtained (family has sent these to my office but they have yet to uploaded to the EMR) ? Laboratory evaluation: None ? Consultations: Peds Cardiology for palpitations AND fatigue, Peds GI for abdominal pain and diahrrea 2. I recommended the use of the following medications amelia her asthma ? Albuterol 2 puffs/1 vial Q4 hrs PRN 3. For her other complicating conditions: allergic rhinitis, I recommended taking the following: ? Continue immunotherapy 4. Other changes to your medication regimen: None 5. Patient will most likely need repeat CT scan in 3-6 months to monitor the pulmonary nodules, however this can't be determined until I can review the images 6. I reviewed in detail the pathophysiology and treatment of pulmonary nodules including: ? Medication dosage, usage, side effects, the risks and benefits of inhaled steroids and goals of treatment ? Avoidance of precipitants ? The need to monitor pulmonary imaging for progression of pulmonary nodules over certain intervals 7. Patient education included: ? MDI instruction - reviewed by RT. ? During this patient encounter I have spent 80 minutes with more than 50% of the time devoted to counseling/coordination of care regarding medications, potential complications of disease, test results, testing/laboratory evaluation and treatment options, as detailed in my Assessment/Plan. (I-15, II-30, III-40, IV-60, V-80) ? Previous Records Reviewed and/or Summarized: Yes ? History obtained from someone other than the patient Yes ? Patient discussed with another provider: Yes Follow up in [facility] 3-6 months with spirometry depending on the imaging studies. Call or return sooner if the symptoms worsen, do not improve as expected or new symptoms or problems arise. Thank you for allowing me to assist in the care of Hank. Please do not hesitate to contact me if I can be of further assistance. Isabel Alexis MD [facility] cc: Enrico Ceballos MD [address] [place] [address] [address] [place] [address] Normal [facility] XR CHEST 2 Von 11-02-2018 XR CHEST 2 V [address] [place] [address] Patient: HANK BRYAN Exam Date: 11/02/2018 : 2000 Gender:F Ordering : DR ENRICO CEBALLOS M.D. Admission #: [id number] Family : Order #: [id number] CLICK HERE TO VIEW EXAM RADIOLOGY REPORT PROCEDURE: RADIOGRAPH CHEST 2 VIEWS COMPARISON: CT CHEST WO CON, 10/19/2018. XR CHEST 2 V, 12/25/2017. INDICATIONS: Acute cough, shortness of breath, lung field abnormal FINDINGS: LUNGS: No definite infiltrate. Questionable small nodular density scattered within the lung bases. VASCULATURE: No increased pulmonary vasculature. PLEURA: No pneumothorax, effusion, or pleural thickening. CARDIAC: No cardiomegaly or cardiac silhouette abnormality. MEDIASTINUM: No visible mass or adenopathy. BONES: No fracture or visible bone lesion. OTHER: Negative. CONCLUSION: 1. Under expanded lungs with questionable faint opacities in the lung bases which may correspond to the recent CT findings. Followup CT imaging of the thorax will be needed to document clearing of the recently seen CT findings. Dictated by: Dayton Jiang M.D. on 11/02/2018 at 20:24 Approved by: Dayton Jiang M.D. on 11/02/2018 at 20:37 Normal [facility] CT CHEST WO CONon 10-19-2018 CT CHEST WO CON [address] [place] [address] Patient: HANK BRYAN Exam Date: 10/19/2018 : 2000 Gender:F Ordering : DR ENRICO CEBALLOS M.D. Admission #: [id number] Family : Order #: [id number] CLICK HERE TO VIEW EXAM RADIOLOGY REPORT PROCEDURE: CT CHEST WITHOUT CONTRAST COMPARISON: CT ABD/PELVIS W CON, 10/05/2018. INDICATIONS: Lung nodules TECHNIQUE: Axial, Coronal, and Sagittal images were created without the administration of IV contrast material. DOSE: 1134 mGycm FINDINGS: LUNGS: 13 mm pleural-based spiculated mass within the posterior right lower lobe. Multiple faint rounded opacities scattered throughout both lungs, largest is within the left lung apex, 9 mm in diameter. The majority are 4 mm in diameter. PLEURA: No effusion or pneumothorax. VASCULATURE: No abnormality KLARISSA: No mass or adenopathy. MEDIASTINUM: Increased soft tissue within the anterior mediastinum; enlarged versus reactive thymus. CARDIAC: No enlargement, pericardial thickening, or significant calcification. AORTA: No aneurysm or dissection. CHEST WALL: No mass or axillary adenopathy. BONES: No bone lesion or fracture. LIMITED ABDOMEN: No suspicious findings. Limited images of the upper abdomen. OTHER: Negative. CONCLUSION: 1. 13 mm spiculated nodule within the posterior right lung base with numerous small faint nodules/opacities scattered throughout the lungs; nonspecific. Given the patient's age, neoplasm is less likely. Multifocal infectious infiltrate is most likely. Followup imaging after treatment is recommended. 2. Reactive thymus versus thymic hyperplasia. Dictated by: Dayton Jiang M.D. on 10/19/2018 at 11:53 Approved by: Dayton Jiang M.D. on 10/19/2018 at 12:14 Normal [facility] CT ABD/PELVIS W CONon 2017 CT ABD/PELVIS W CON [address] [place] [address] Patient: HANK BRYAN Exam Date: 10/05/2018 : 2000 Gender:F Ordering : DR ENRICO CEBALLOS M.D. Admission #: [id number] Family : Order #: [id number] CLICK HERE TO VIEW EXAM RADIOLOGY REPORT PROCEDURE: CT ABDOMEN AND PELVIS WITH CONTRAST COMPARISON: None. INDICATIONS: Chronic nausea, vomiting and diarrhea after eating TECHNIQUE: CT images were created with IV contrast. Axial, Coronal, and Sagittal images. DOSE: 3345mGycm; 100cc Omnipaque 300 FINDINGS: LUNG BASES: 11 mm spiculated subpleural nodule right lower lobe axial image 17. Additional ill-defined 6 mm nodule in the right middle lobe axial image 3 LIVER: No enlargement, atrophy, abnormal density, or significant focal lesion. BILIARY: No visible dilatation or calcification. PANCREAS: No lesion, fluid collection, ductal dilatation, or atrophy. SPLEEN: No enlargement or focal lesion. ADRENALS: No mass or enlargement. KIDNEYS: No mass, obstruction, or calcification. BOWEL/MESENTERY: No visible mass, obstruction, or bowel wall thickening. AORTA/VASCULAR: No aneurysm or dissection. RETROPERITONEUM: No mass or adenopathy. LYMPH NODES: Increased number of normal size mesenteric lymph nodes URINARY BLADDER: No visible focal wall thickening, lesion, or calculus. PELVIC ORGANS: Dilated endometrial cavity, clinically correlate. Small amount of free pelvic fluid, physiologic in amount ABDOMINAL WALL: No mass or hernia. BONES: No bony lesion or fracture. CONCLUSION: 1. Increase number of normal-sized mesenteric lymph nodes. 2. No acute intraperitoneal abnormality Dictated by: Israel Kessler M.D. on 10/05/2018 at 14:12 Approved by: Israel Kessler M.D. on 10/05/2018 at 14:16 Normal [facility] XR ABD FLAT/UPon 09-22-2018 XR ABD FLAT/UP [address] [place] [address] Patient: HANK BRYAN Exam Date: 09/22/2018 : 2000 Gender:F Ordering : DR ENRICO CEBALLOS M.D. Admission #: [id number] Family : Order #: [id number] CLICK HERE TO VIEW EXAM RADIOLOGY REPORT PROCEDURE: RADIOGRAPH ABDOMEN FLAT AND UPRIGHT COMPARISON: XR ABD FLAT UP/PA CH, 11/17/2017. INDICATIONS: Chronic nausea FINDINGS: BOWEL GAS PATTERN: Non-obstructed. Normal amount of stool throughout the colon FREE AIR: None. CALCIFICATIONS: None significant. BONES: No fracture or visible bone lesion. OTHER: Negative. CONCLUSION: 1. Nonobstructive bowel gas pattern Dictated by: Israel Kessler M.D. on 09/22/2018 at 10:06 Approved by: Israel Kessler M.D. on 09/22/2018 at 10:07 Normal [facility] XR CHEST 2 Von 12-25-2017 XR CHEST [address] [place] [id number] Patient: HANK BRYAN Exam Date: 12/25/2017 : 2000 Gender:F Ordering : DR ENRICO CEBALLOS M.D. Admission #: [id number] Family : Order #: [id number] CLICK HERE TO VIEW EXAM RADIOLOGY REPORT PROCEDURE: RADIOGRAPH CHEST 2 VIEWS COMPARISON: XR CHEST 2 V, 10/31/2017. INDICATIONS: Acute bronchitis, cough, and dyspnea FINDINGS: LUNGS: No significant pulmonary parenchymal abnormalities. VASCULATURE: No increased pulmonary vasculature. PLEURA: No pneumothorax, effusion, or pleural thickening. CARDIAC: No cardiomegaly or cardiac silhouette abnormality. MEDIASTINUM: No visible mass or adenopathy. BONES: No fracture or visible bone lesion. OTHER: Negative. CONCLUSION: No acute disease. Dictated by: Israel Kessler M.D. on 12/25/2017 at 13:27 Approved by: Israel Kessler M.D. on 12/25/2017 at 13:28 [facility] Vital Signs Date Time Vital Sign Value Performing Clinician Facility 07-24-2021 12:40-0400 Body height 157.48 cm Poppy Prajapati Other [employer] Other 07-24-2021 12:40-0400 Body mass index (BMI) [Ratio] 51.54 kg/m2 Poppy Prajapati Other [employer] Other 07-24-2021 12:40-0400 Body temperature 97.8 [degF] Poppy Prajapati Other [employer] Other 07-24-2021 12:40-0400 Body weight 127.82 kg Poppy Prajapati Other [employer] Other 07-24-2021 12:40-0400 Diastolic blood pressure 62 mm[Hg] Poppy Prajapati Other [employer] Other 07-24-2021 12:40-0400 Respiratory rate 18 /min Poppy Prajapati Other [employer] Other 07-24-2021 12:40-0400 SaO2% (BldA) [Mass fraction] 99 % Poppy Prajapati Other [employer] Other 07-24-2021 12:40-0400 Systolic blood pressure 120 mm[Hg] Poppy Prajapati Other [employer] Other Encounters Encounter Date Encounter Type Care Provider Facility Start: 12-17-2023 End: 12-18-2023 ambulatory PEYTON RAMBASEK Not Available Start: 12-15-2023 End: 12-15-2023 ambulatory AKIN AMBER Not Available Start: 12-10-2023 End: 12-11-2023 ambulatory PEYTON RAMBASEK Not Available Start: 12-03-2023 End: 12-04-2023 ambulatory PEYTON RAMBASEK Not Available Start: 11-19-2023 Telephone encounter Peyton chakraborty MD Work Phone: [facility] Start: 11-17-2023 End: 11-17-2023 ambulatory AKIN AMBER Not Available Start: 10-27-2023 End: 10-27-2023 ambulatory PEYTON ALEXIS Not Available Start: 08-27-2023 End: 08-27-2023 ambulatory LESLIE DAVIDSON Not Available Start: 11-18-2022 End: 11-18-2022 ambulatory Funmilayo Colon Facility:[facility] Start: 07-24-2021 Office outpatient vi sit 15 minutes Poppy Prajapati [facility] Start: 01-26-2019 End: 01-26-2019 Patient encounter procedure MAYRA HICKS) [facility] Start: 01-04-2019 End: 01-06-2019 Patient encounter procedure MAYRA HICKS) [facility] Start: 12-12-2018 End: 12-12-2018 Patient encounter procedure RUGEN LIN Facility:[facility] Start: 12-08-2018 End: 01-04-2019 Patient encounter procedure DEVINANCHUNIQUE PAPO [facility] Start: 12-01-2018 End: 12-03-2018 Patient encounter procedure RUGEN MABALAY LIN [facility] Start: 11-02-2018 End: 11-03-2018 Patient encounter procedure RUGEN LIN Facility:[facility] Start: 10-19-2018 End: 10-20-2018 Patient encounter procedure RUGEN LIN Facility:[facility] Start: 10-05-2018 End: 10-06-2018 Patient encounter procedure RUGEN LIN Facility:[facility] Start: 09-22-2018 End: 09-23-2018 Patient encounter procedure RUGEN LIN Facility:[facility] Start: 04-21-2018 End: 04-22-2018 Patient encounter procedure RUGEN LIN Facility:[facility] Start: 12-25-2017 End: 12-26-2017 Patient encounter procedure RUGEN LIN Facility:[facility] Plan of Treatment Date Care Activity Detail Author Start: 04-04-2024 Influenza vaccination Influenza Vacc ine (#1) [facility] Comment on above: Postponed from 06/06 (Patient Refused) Start: 12-15-2023 End: 12-15-2023 Patient encounter procedure 12/15/2023 2:40 PM EDT Office Visit [facility] [address] [place] [address] Akin Huertas, [address] [place] [address] [facility] OB Immunizations Immunization Date Immunization Notes Care Provider Fa cili 07-24-2021 Toradol 30 mg/ml Poppy yu Other [facility] [employer] Other 04-03-2020 tuberculin skin test ; purified protein derivative solution, intradermal Peyton Alexis MD Work Phone: [facility] 05-07-2019 tuberculin skin test ; purified protein derivative solution, intradermal Peyton Alexis MD Work Phone: [facility] 05-04-2019 meningococcal oligosaccharide (groups A, C, Y and W-135) diphtheria toxoid conjugate vaccine (MCV4O) Peyton Alexis MD Work Phone: [facility] 02-06-2018 Toradol per 15 mg Poppy Victorina Other [employer] Other 12-09-2017 PROMETHAZINE (Phener alphonso) up to 50 mg Poppy Victorina Other [employer] Other 12-09-2017 Toradol per 15 mg Poppy Victorina Other [employer] Other 10-14-2017 PROMETHAZINE (Phener alphonso) up to 50 mg Poppy Victorina Other [employer] Other 10-14-2017 Toradol per 15 mg Poppy Victorina Other [employer] Other 10-31-2015 Human Papillomavirus 9-valent vaccine Peyton Alexis MD Work Phone: [facility] 06-19-2015 human papilloma viru s vaccine, quadrivalent Peyton Alexis MD Work Phone: [facility] 06-19-2015 meningococcal oligosaccharide (groups A, C, Y and W-135) diphtheria toxoid conjugate vaccine (MCV4O) Peyton Alexis MD Work Phone: [facility] 04-17-2015 human papilloma viru s vaccine, quadrivalent Peyton Alexis MD Work Phone: [facility] 04-17-2015 tetanus toxoid, redu rey diphtheria toxoid, and acellular pertussis vaccine, adsorbed Peyton Alexis MD Work Phone: [facility] 11-18-2012 hepatitis A vaccine, pediatric/adolescent dosage, 2 dose schedule Peyton Alexis MD Work Phone: [facility] 11-18-2012 influenza, seasonal, injectable Peyton Alexis MD Work Phone: [facility] 11-18-2012 influenza virus vacc ine, unspecified formulation Peyton Alexis MD Work Phone: [facility] 11-11-2011 influenza, seasonal, injectable Peyton Alexis MD Work Phone: [facility] 08-07-2011 hepatitis A vaccine, pediatric/adolescent dosage, 2 dose schedule Peyton Alexis MD Work Phone: [facility] 08-07-2011 varicella virus vaccine Peyton Alexis MD Work Phone: [facility] 01-24-2011 influenza virus vacc ine, whole virus Peyton Alexis MD Work Phone: [facility] 11-08-2010 influenza virus vacc ine, whole virus Peyton Alexis MD Work Phone: [facility] 09-12-2009 influenza virus vacc ine, whole virus Peyton Alexis MD Work Phone: [facility] 07-24-2009 influenza virus vacc ine, whole virus Peyton Alexis MD Work Phone: [facility] 03-11-2008 diphtheria, tetanus toxoids and acellular pertussis vaccine Peyton Alexis MD Work Phone: [facility] 03-11-2008 measles, mumps and rubella virus vaccine Peyton Alexis MD Work Phone: [facility] 03-11-2008 poliovirus vaccine, inactivated Peyton Alexis MD Work Phone: [facility] 05-02-2004 hepatitis B vaccine, pediatric or pediatric/adolescent dosage Peyton Alexis MD Work Phone: [facility] 05-02-2004 pneumococcal conjuga te vaccine, 7 valent Peyton Alexis MD Work Phone: [facility] 10-20-2003 diphtheria, tetanus toxoids and acellular pertussis vaccine, unspecified formulation Peyton Alexis MD Work Phone: [facility] 10-20-2003 haemophilus influenz ae type b conjugate and Hepatitis B vaccine Peyton Alexis MD Work Phone: [facility] 10-20-2003 measles, mumps and rubella virus vaccine Peyton Alexis MD Work Phone: [facility] 10-20-2003 varicella virus vaccine Peyton Alexis MD Work Phone: [facility] 03-17-2003 diphtheria, tetanus toxoids and acellular pertussis vaccine Peyton Alexis MD Work Phone: [facility] 03-17-2003 haemophilus influenz ae type b vaccine, PRP-T conjugate Peyton Alexis MD Work Phone: [facility] 03-17-2003 pneumococcal conjuga te vaccine, 7 valent Peyton Alexis MD Work Phone: [facility] 03-17-2003 poliovirus vaccine, inactivated Peyton Alexis MD Work Phone: [facility] 2002 diphtheria, tetanus toxoids and acellular pertussis vaccine, 5 pertussis antigens Peyton Aleixs MD Work Phone: [facility] 2002 haemophilus influenz ae type b conjugate and Hepatitis B vaccine Peyton Alexis MD Work Phone: [facility] 2002 pneumococcal conjuga te vaccine, 7 valent Peyton Alexis MD Work Phone: [facility] 2002 poliovirus vaccine, inactivated Peyton Alexis MD Work Phone: [facility] 2002 diphtheria, tetanus toxoids and acellular pertussis vaccine, 5 pertussis antigens Peyton Alexis MD Work Phone: [facility] 2002 haemophilus influenz ae type b conjugate and Hepatitis B vaccine Peyton Alexis MD Work Phone: [facility] 2002 poliovirus vaccine, inactivated Peyton Alexis MD Work Phone: [facility] Healthcare Payers Date Payer Category Payer Private Health Insurance [id number] 2022 Self-pay 2022 Private Health Insurance MECCA GOLDEN [id number] 2022-Present [address] [place] [address] [id number] 2022 Private Health Insurance [id number] 2022 Medicaid [id number] 2022 Medicaid [place] [employer] [id number] 2022-Present [address] [place] [address] [id number] 2002 Unknown [id number] 93 2002 Unknown [id number] 2.16.840.1.326007.3.579.2.1 259 2002 Unknown [id number] 2.16.840.1.592750.3.579.2.1 259 2002 Unknown [id number] 2.16.840.1.717257.3.579.2.1 259 2002 Unknown [id number] 2.16.840.1.249291.3.579.2.1 259 2002 Unknown [id number] 2.16.840.1.696115.3.579.2.1 259 2002 Unknown [id number] 2.16.840.1.728428.3.579.2.1 259 2002 Unknown [id number] 2.16.840.1.004751.3.579.2.1 259 1981 Unknown [id number] 2.16.840.1.852790.3.579.2.5 93 1981 Unknown [id number] 2.16.840.1.531015.3.579.2.5 93 1981 Unknown [id number] 2.16.840.1.432408.3.579.2.5 93 1981 Unknown [id number] 2.16.840.1.495316.3.579.2.5 93 1981 Unknown [id number] 2.16.840.1.569176.3.579.2.5 93 1981 Unknown [id number] 2.16.840.1.517874.3.579.2.5 93 1959 Unknown [id number] Unknown [id number] [id number] Unknown [id number] 2.16.840.1.919329.3.579.2.5 31 Social History Date Type Detail Facility Unknown if ever smoked [facility] [employer] Other Start: 11-17-2023 Sex Assigned At [facility] [employer] Other Start: 06-18-2023 Tobacco smoking status [facility] Never smoked tobacco [facility] Start: 06-18-2023 Tobacco use and exposure Smokeless tobacco non-user [facility] Start: 11-17-2023 Alcohol intake Lifetime non-d soumya (finding) [facility] Start: 11-17-2023 History of Social function [facility] Start: 03-21-2023 Alcohol Comment Caffeine intake: non e [facility] Start: 2000 Sex Assigned At Not on file [facility] Telephone encounter Note 11-19-2023 Telephone Encounter - Johanna Jade LPN - 11/19/2023 11:04 AM EST Note Date & Type Note Facility 11-19-2023 Telephone encounter Note I spoke with the shot nurse at Dr. Ceballos's office. She states that Hank has not had a dose since August of 2023. Her last dose was 0.07ml. I explained that since it has been so many weeks that her vials will need to be diluted back and a new dose calculated. I instructed the nurse to send us the vials and her shot record and we will get the dilution made and the correct dose calculated. Her current vials in February 2024. [facility] [employer] Work Phone: Note 11-19-2023 Telephone Encounter - Johanna Jade LPN - 11/19/2023 11:04 AM EST Note Date & Type Note Facility 11-19-2023 Miscellaneous Notes Formattin g of this note might be different from the original. I spoke with the shot nurse at Dr. Ceballos's office. She states that Hank has not had a dose since August of 2023. Her last dose was 0.07ml. I explained that since it has been so many weeks that her vials will need to be diluted back and a new dose calculated. I instructed the nurse to send us the vials and her shot record and we will get the dilution made and the correct dose calculated. Her current vials in February 2024. documented in this encounter [facility] Evaluation note 07-24-2021 Note Date & Type Note Facility 07-24-2021 Evaluation note Encounter Date Diagnosis Assessment Notes Jul, Intractable migraine without aura and with status migrainosus (ICD-10 - G43.011) Take medication as directed. Stay away from known triggers. Follow up with primary care provider or neurology if symptoms persist as new treatment option may need to be discussed. [employer] Other History general Narrative - Reported Note Date & Type Note Facility History general Narrative - Reported Type Medical History asthma Medical History acne Medical History allergies Medical History migraine Surgical History tonsillectomy [employer] Other Summary Purpose Family History No Family History Records FoundNo Family History Records FoundNo Family History Records FoundNo Family History Records Found Advance Directives No Advanced Directives Records FoundNo Advanced Directives Records FoundNo Advanced Directives Records FoundNo Advanced Directives Records Found Additional Source Comments INFORMATION SOURCE (unrecogn ized section and content) DATE CREATED AUTHOR 12/16/2018 [facility] DATE CREATED AUTHOR AUTHOR'S ORGANIZ ATION 02/09/2019 [facility] DATE CREATED AUTHOR AUTHOR'S ORGANIZ ATION 07/23/2023 [facility] DATE CREATED AUTHOR AUTHOR'S ORGANIZ ATION 12/21/2023 [facility] Specialists EPIC REASON FOR VISIT (unrecogniz ed section and content) HEADACHE, NO OTHER [facility] Care Teams (unrecognized sec tion and content) Chief Estimator Relationship Specialty Start Date End Date Enrico Ceballos MD [address] [facility] [address] [place] [address] PCP - General Family Medicine 03/31/23 FOR RECORDS PERTAINING TO PATIENTS WHO ARE OR HAVE BEEN ENROLLED IN A CHEMICAL DEPENDENCY/SUBSTANCEABUSE PROGRAM, SOME INFORMATION MAY BE OMITTED. This clinical summary was aggregated from multiple sources. Caution should be exercised in using it in the provision of clinical care. This summary normalizes information from multiple sources, and as a consequence, information in this document may materially change the coding, format and clinical context of patient data. In addition, data may be omitted in some cases. CLINICAL DECISIONS SHOULD BE BASED ON THE PRIMARY CLINICAL RECORDS. [employer] provides no warranty or guarantee of the accuracy or completeness of information in this document.
== END 2024-01-02 13:35 | disposition home or self-care (01) ==
LOC: US 13:35
PROVIDERS: PCP Family Medicine; Visit Provider Physician Assistant
DX: N92.0 Excessive and frequent menstruation with regular cycle (principal)
CPT/HCPCS: 76856

== ENCOUNTER 2024-04-09 11:00 | Outpatient (OUT) | payer OTHER, MEDICAID, SELFPAY ==
--- NOTE | 2024-04-09 11:02 | US_ITS ---
The [address] [address] Patient Name: HANK BRYAN MRN: [id number] date: 2000 Sex: F Assigned Patient Location: US Current Patient Location: Accession/Order Number: [id number] Exam Date: 04/09/2024 11:05 Report Date: 04/10/2024 07:27 At the request of: LESLIE DAVIDSON Procedure: US soft tissue head and neck EXAMINATION: US soft tissue head and neck HISTORY: Mass Right Side Of Neck R22.1 COMPARISON: No relevant comparison available. FINDINGS: Within the lateral right neck corresponding to patient's palpable lump is a 12 x 10 x 6 mm hypoechoic soft tissue structures suspected represent a lymph node which is lost its fatty hilum. US/US soft tissue head and neck IMPRESSION: 1. Atypical appearance, but no pathologic enlargement of what is suspected to be a lymph node within right side of neck. Clinical follow-up recommended. If findings persists or increases consider ultrasound-guided tissue sampling. Electronically authenticated by: DAYTON DE SANTIAGO Date: 04/10/2024 07:27
--- OUTSIDE RECORDS SUMMARY | 2024-04-09 11:04 | XMS_ITS | CCD ---
Author Organization [facility] Care Team Providers Care Door Fitter Name Role Phone LIN, RUGEN Admitting Unavailable [...] Consulting Unavailable ISRAEL KESSLER V Consulting Unavailable LNI, RUGEN Admitting Unavailable LIN, RUGEN Attending Unavailable [...] Attending Unavailab ISABEL Kim Referring Unavailable PAPO, DEVINANCHAU Referring Unavailable PAPO, DEVINANCHAU Referring Unavailable PAPO, [...] HUERTAS Attending Unavailable LESLIE DAVIDSON Attending Unavailable LESLIE DAVIDSON Attending Unavailable LESLIE DAVIDSON Attending Unavailable Allergies Allergy Classification Reported Allergen(s) Allergy Type Date of Onset Reaction(s) Facility (1 source) Dust; Translations: [DUST] Propensity to adverse reactions (disorder) 9 [facility] Repository (1 source) Grass pollen; Translations: [GRASS POLLEN] Propensity to adverse reactions to drug (disorder) 9 [facility] Repository (1 source) Tree; Translations: [TREES] Propensity to adverse reactions (disorder) 9 [facility] Repository (1 source) Grass pollen Drug Allergy 9 [facility] Healthcare (1 source) House dust mite Allergy to substance 9 [facility] Work Phone: Medications Current Medications Medication Drug Class(es) Dates Sig (Normalized) Sig (Original) [id number] 200 actuat albuterol 0.09 mg/actuat metered dose [...] [Other specified disorders of bone, shoulder] Onset: Past or Other Problems Problem Classification Problem [...] COVID-19; Translations: [Other specified viral infection] Onset: 09-05-2020 07-30-2023 Episodic Results Test Name Value Interpretation Reference Range Facility XR shoulder RT min 2V*on XR shoulder RT min 2V* [facility] [address] [address] XRay Report Signed Patient: Hank Bryan MR#: [id number] 3 : 2000 Acct:[id number] Age/Sex: 22 / F ADM Date: 11/18/22 Loc: XDUCLY Room: Type: [facility] Attending Dr: Funmilayo SALDANA Copies to: LES [...] process. Impression dictated by: Fred Solano Jr., DGeoffOGeoff11/18/2022 4:17 PM Dictation Location: [place] [address] Transcribed By: [facility] 11/18/221616 Dictated By: Fred Solano Jr, DO 11/18/221615 Signed By: 11/18/221616 [facility] MANUELTOOlamide 02-03-2019 CNPTOUTREA Patient Outreach (PGASMN) HAKN BRYAN ([id number]) 4 F Date Time Provider Department 02/03/19 MAYRA CARO) PGAN During your visit today, [...] Encounter Status:Closed by MARY JANE on 02/03/19 Normal [facility] PROGRESSon 02-03-2019 Protein mass conc HNO ID: [id number] Author: Mary Jane Service: ? Author Type: ? Type: Progress Notes Filed: 02/03/2019 9:46 AM Note Text: Called and spoke with mom (Christine). Mom informed that surgical pathology came back normal from patient's recent scope per Dr. Caro. Mom thankful for this information, and has no further questions for RN. Normal [facility] CNPTOUTREACHon 01-28-2019 CNPTOUTREA Patient Outreach (PGASMN) HANK BRYAN ([id number]) 4 F Date Time Provider Department 01/28/19 MAYRA CARO) [facility] During your visit today, we recorded the [...] Status:Closed by MARY JANE on 01/28/19 Normal [facility] PROGRESSon 01-28-2019 Protein mass conc HNO ID: [id number] Author: Mary Jane Service: ? Author Type: [...] questions for RN at this time. Normal [facility] ALLIED HEALTH 01-26-2019 ALLIED HEALTH HNO ID: [id number] Author: Clarice Benitez (Ccls) Service: ? Author Type: Mechanical Maintenance Engineer Type: Allied Health Filed: 01/26/2019 10:12 AM [...] 26, 2019 TIME: 10:12 AM PAGER/CONTACT #: [phone] Normal [facility] ANES Jenifer 01-26-2019 ANES POST HNO ID: [id number] Author: Karen Reese Service: Anesthesiology Author Type: [...] 26, 2019 TIME: 2:26 PM PAGER/CONTACT #: [id number] Normal [facility] C-Reactive Proteinon 019 CRP mass conc 0.2 mg/dL Normal <0.9 [facility] Comment on above: Performed By: #### C BCDIF, WSR, FT4, IGA, CMP, LIPA, LIPB, TSH, CRP, TGIGA, GLIAD, TGIGG ####[place] [address] [address] [place] [phone] CBC and Differentialon 01-26 Abs Baso 0.05 k/uL Normal <0.11 [facility] Comment on above: Performed By: #### C BCDIF, WSR, FT4, IGA, CMP, LIPA, LIPB, TSH, CRP, TGIGA, GLIAD, TGIGG ####[place] [address] [address] [place] [phone] Abs Attala 0.58 k/uL Normal <0.87 [facility] Comment on above: Performed By: #### C BCDIF, WSR, FT4, IGA, CMP, LIPA, LIPB, TSH, CRP, TGIGA, GLIAD, TGIGG ####[facility] [place] [phone] Abs Neut 5.35 k/uL Normal 1.45-7.50 [facility] Comment on above: Performed By: #### C BCDIF, WSR, FT4, IGA, CMP, LIPA, LIPB, TSH, CRP, TGIGA, GLIAD, TGIGG ####[facility], [place] [phone] Absolute nRBC <0.01 Normal <0.01 [facility] Comment on above: Performed By: #### C BCDIF, WSR, FT4, IGA, CMP, LIPA, LIPB, TSH, CRP, TGIGA, GLIAD, TGIGG ####[place] [address] [address] [phone] Basophils/100 WBC (Bld) 0.6 % Normal [facility] Comment on above: Performed By: #### C BCDIF, WSR, FT4, IGA, CMP, LIPA, LIPB, TSH, CRP, TGIGA, GLIAD, TGIGG ####[place] [address] [address] [place] [phone] DTYPE Auto Diff Normal [facility] Comment on above: Performed By: #### C BCDIF, WSR, FT4, IGA, CMP, LIPA, LIPB, TSH, CRP, TGIGA, GLIAD, TGIGG ####[place] [phone] Eosinophils #/vol (Bld) 0.10 10*3/uL Normal <0.46 [facility] Comment on above: Performed By: #### C BCDIF, WSR, FT4, IGA, CMP, LIPA, LIPB, TSH, CRP, TGIGA, GLIAD, TGIGG ####[place] [phone] Eosinophils/100 WBC (Bld) 1.1 % Normal [facility] Comment on above: Performed By: #### C BCDIF, WSR, FT4, IGA, CMP, LIPA, LIPB, TSH, CRP, TGIGA, GLIAD, TGIGG ####[place] [address] [address] [phone] Erythrocyte distribution width Ratio (RBC) 13.5 % Normal 11.5-15.0 [facility] Comment on above: Performed By: #### C BCDIF, WSR, FT4, IGA, CMP, LIPA, LIPB, TSH, CRP, TGIGA, GLIAD, TGIGG ####[address] [phone] Hematocrit Volume Fraction (Bld) 34.0 % Low 36.0-46.0 [facility] Comment on above: Performed By: #### C BCDIF, WSR, FT4, IGA, CMP, LIPA, LIPB, TSH, CRP, TGIGA, GLIAD, TGIGG ####[address] [place] [phone] Hemoglobin mass conc (Bld) 11.0 g/dL Low 11.5-15.5 [facility] Comment on above: Performed By: #### C BCDIF, WSR, FT4, IGA, CMP, LIPA, LIPB, TSH, CRP, TGIGA, GLIAD, TGIGG ####[place] [phone] Lymphocytes #/vol (Bld) 2.69 10*3/uL Normal 1.00-4.00 [facility] Comment on above: Performed By: #### C BCDIF, WSR, FT4, IGA, CMP, LIPA, LIPB, TSH, CRP, TGIGA, GLIAD, TGIGG ####[place] [phone] Lymphocytes/100 WBC (Bld) 30.7 % Normal [facility] Comment on above: Performed By: #### C BCDIF, WSR, FT4, IGA, CMP, LIPA, LIPB, TSH, CRP, TGIGA, GLIAD, TGIGG ####[place] [phone] MCH Entitic mass (RBC) 27.6 pG Normal 26.0-34.0 [facility] Comment on above: Performed By: #### C BCDIF, WSR, FT4, IGA, CMP, LIPA, LIPB, TSH, CRP, TGIGA, GLIAD, TGIGG ####[place] [address] [address] [phone] MCHC mass conc (RBC) 32.4 g/dL Normal 30.5-36.0 [facility] Comment on above: Performed By: #### C BCDIF, WSR, FT4, IGA, CMP, LIPA, LIPB, TSH, CRP, TGIGA, GLIAD, TGIGG ####[address] [place] [phone] MCV Entitic volume (RBC) 85.4 fL Normal 80.0-100.0 [facility] Comment on above: Performed By: #### C BCDIF, WSR, FT4, IGA, CMP, LIPA, LIPB, TSH, CRP, TGIGA, GLIAD, TGIGG ####[place] [phone] Monocytes/100 WBC (Bld) 6.6 % Normal [facility] Comment on above: Performed By: #### C BCDIF, WSR, FT4, IGA, CMP, LIPA, LIPB, TSH, CRP, TGIGA, GLIAD, TGIGG ####[place] [phone] Neutrophils/100 WBC (Bld) 61.0 % Normal [facility] Comment on above: Performed By: #### C BCDIF, WSR, FT4, IGA, CMP, LIPA, LIPB, TSH, CRP, TGIGA, GLIAD, TGIGG ####[address] [place] [phone] NRBCs 0.0 /100 WBC Normal 0 [facility] Comment on above: Performed By: #### C BCDIF, WSR, FT4, IGA, CMP, LIPA, LIPB, TSH, CRP, TGIGA, GLIAD, TGIGG ####[place] [address] [address] [place] [phone] Platelet mean volume Entitic volume (Bld) 9.7 fL Normal 9.0-12.7 [facility] Comment on above: Performed By: #### C BCDIF, WSR, FT4, IGA, CMP, LIPA, LIPB, TSH, CRP, TGIGA, GLIAD, TGIGG ####[place] [address] [address] [place], [place] [phone] Platelets #/vol (Bld) 433 10*3/uL High 150-400 [facility] Comment on above: Performed By: #### C BCDIF, WSR, FT4, IGA, CMP, LIPA, LIPB, TSH, CRP, TGIGA, GLIAD, TGIGG ####[place] [address] [address] [place], [place] [phone] RBC #/vol (Bld) 3.98 10*6/uL Normal 3.90-5.20 [facility] Comment on above: Performed By: #### C BCDIF, WSR, FT4, IGA, CMP, LIPA, LIPB, TSH, CRP, TGIGA, GLIAD, TGIGG ####[address] [place], [place] [phone] WBC #/vol (Bld) 8.77 10*3/uL Normal 3.70-11.00 [facility] Comment on above: Performed By: #### C BCDIF, WSR, FT4, IGA, CMP, LIPA, LIPB, TSH, CRP, TGIGA, GLIAD, TGIGG ####[place] [address] [address] [place], [place] [phone] Comp Metabolic Panelon 01-26 Albumin mass conc 4.1 g/dL Normal 3.2-4.5 [facility] Comment on above: Performed By: #### C BCDIF, WSR, FT4, IGA, CMP, LIPA, LIPB, TSH, CRP, TGIGA, GLIAD, TGIGG ####[place] [address] [address] [place], [place] [phone] ALP enzyme act/vol 63 U/L Normal 50-117 [facility] Comment on above: Result Comment: Refe rence ranges were not locally established for this patient's age group. The normal values are based on the following source: Jyoti MP, Tara AH, et al. CLSI based transference of the CALIPER database of pediatric reference intervals from [place]oz[place] to Will, Ortho, Nneka, and Siemens Clinical Chemistry Assays: Direct validation using reference samples from the [facility] cohort. Clin Biochem. Performed By: #### C BCDIF, WSR, FT4, IGA, CMP, LIPA, LIPB, TSH, CRP, TGIGA, GLIAD, TGIGG ####[address] [phone] ALT enzyme act/vol 17 U/L Normal 7-38 [facility] Comment on above: Result Comment: (NOT E) Reference ranges for this patient's age group have not been established. These reference ranges reflect verified or established ranges for the adult population. Interpret these ranges wtih caution using clinical context and additional reference resources. Performed By: #### C BCDIF, WSR, FT4, IGA, CMP, LIPA, LIPB, TSH, CRP, TGIGA, GLIAD, TGIGG ####[address] [phone] Anion gap molar conc 18 mmol/L Normal 9-18 [facility] Comment on above: Result Comment: (NOT E) Reference ranges for this patient's age group have not been established. These reference ranges reflect verified or established ranges for the adult population. Interpret these ranges with caution using the clinical context and additional reference resources. Performed By: #### C BCDIF, WSR, FT4, IGA, CMP, LIPA, LIPB, TSH, CRP, TGIGA, GLIAD, TGIGG ####[address] [place], [place] [phone] AST enzyme act/vol 21 U/L Normal 13-35 [facility] Comment on above: Result Comment: (NOT E) Reference ranges for this patient's age group have not been established. These reference ranges reflect verified or established ranges for the adult population. Interpret these ranges with caution using clinical context and additional reference resources. Performed By: #### C BCDIF, WSR, FT4, IGA, CMP, LIPA, LIPB, TSH, CRP, TGIGA, GLIAD, TGIGG ####[place] [id number] [place], [place] [phone] Bilirubin mass conc mg/dL Low 0.2-1.3 [facility] Comment on above: Result Comment: (NOT E) Reference ranges for this patient's age group have not been established. These reference ranges reflect verified or established ranges for the adult population. Interpret these ranges with caution using the clinical context and additional reference resources. Performed By: #### C BCDIF, WSR, FT4, IGA, CMP, LIPA, LIPB, TSH, CRP, TGIGA, GLIAD, TGIGG ####[address] [phone] Calcium mass conc 9.5 mg/dL Normal 8.4-10.2 [facility] Comment on above: Performed By: #### C BCDIF, WSR, FT4, IGA, CMP, LIPA, LIPB, TSH, CRP, TGIGA, GLIAD, TGIGG ####[address] [phone] Chloride molar conc 106 mmol/L High 97-105 [facility] Comment on above: Result Comment: (NOT E) Reference ranges for this patient's age group have not been established. These reference ranges reflect verified or established ranges for the adult population. Interpret these ranges with caution using the clinical context and additional reference resources. Performed By: #### C BCDIF, WSR, FT4, IGA, CMP, LIPA, LIPB, TSH, CRP, TGIGA, GLIAD, TGIGG ####[place] [address] [address] [place], [place] [phone] CO2 molar conc 18 mmol/L Low 22-30 [facility] Comment on above: Result Comment: (NOT E) Reference ranges for this patient's age group have not been established. These reference ranges reflect verified or established ranges for the adult population. Interpret these ranges with caution using the clinical context and additional reference resources. Performed By: #### C BCDIF, WSR, FT4, IGA, CMP, LIPA, LIPB, TSH, CRP, TGIGA, GLIAD, TGIGG ####[facility] [address] [place], [place] [phone] Creatinine mass conc 0.65 mg/dL Normal 0.58-0.96 [facility] Comment on above: Result Comment: Refe rence ranges for this patient's age group have not been established. These reference ranges reflect verified or established ranges for the adult population. Interpret these ranges with caution using the clinical context and additional reference resources. Performed By: #### C BCDIF, WSR, FT4, IGA, CMP, LIPA, LIPB, TSH, CRP, TGIGA, GLIAD, TGIGG ####[facility] [place], [place] [phone] Glucose mass conc 78 mg/dL Normal 74-99 [facility] Comment on above: Result Comment: Refe rence ranges for this patient's age group have not been established. These reference ranges reflect verified or established ranges for the adult population. Interpret these ranges with caution using the clinical context and additional reference resources. The [place] Diabetes Association (ADA) provides guidance for cutoff [...] Standards of Medical Care in Diabetes 2016, [place] Diabetes Association. Diabetes Care. 2016.39(Suppl 1). Performed By: #### C BCDIF, WSR, FT4, IGA, CMP, LIPA, LIPB, TSH, CRP, TGIGA, GLIAD, TGIGG ####[facility] [place], [place] [phone] Potassium molar conc 4.1 mmol/L Normal 3.7-5.1 [facility] Comment on above: Result Comment: (NOT E) Reference ranges for this patient's age group have not been established. These reference ranges reflect verified or established ranges for the adult population. Interpret these ranges with caution using the clinical context and additional reference resources. Performed By: #### C BCDIF, WSR, FT4, IGA, CMP, LIPA, LIPB, TSH, CRP, TGIGA, GLIAD, TGIGG ####[place] [id number] [place], [place] [phone] Protein mass conc 7.0 g/dL Normal 6.3-8.0 [facility] Comment on above: Result Comment: (NOT [...] MK, Asia I, Christiano M, et al. [place] [employer] Initiative on Reference Interval Database(CALIPER): pediatric reference intervals for an integrated clinical chemistry and immunoassay analyzer, [employer] HELP DESK REPRESENTATIVE [id number]. Clin Biochem 2009;42:885-891. Performed By: #### C BCDIF, WSR, FT4, IGA, CMP, LIPA, LIPB, TSH, CRP, TGIGA, GLIAD, TGIGG ####[place] [id number] [place], [place] [phone] Sodium molar conc 142 mmol/L Normal 136-144 [facility] Comment on above: Result Comment: (NOT E) Reference ranges for this patient's age group have not been established. These reference ranges reflect verified or established ranges for the adult population. Interpret these ranges with caution using the clinical context and additional reference resources. Performed By: #### C BCDIF, WSR, FT4, IGA, CMP, LIPA, LIPB, TSH, CRP, TGIGA, GLIAD, TGIGG ####[address] [phone] Urea nitrogen mass conc 9 mg/dL Normal 5-18 [facility] Comment on above: Performed By: #### C BCDIF, WSR, FT4, IGA, CMP, LIPA, LIPB, TSH, CRP, TGIGA, GLIAD, TGIGG ####[address] [phone] Free T4on 01-26-2019 T4 free mass conc 1.3 ng/dL Normal 0.8-1.5 [facility] Comment on above: Performed By: #### C BCDIF, WSR, FT4, IGA, CMP, LIPA, LIPB, TSH, CRP, TGIGA, GLIAD, TGIGG ####[address] [phone] Gliadin(Deamin.)Abson 2018 Gliad IgA Ab 3 Units Normal <20 [facility] Comment on above: Result Comment: Nega tive : < 20 Units Weak Positive : 20 - 30 Units Moderate Pos to Strong Pos: >30 Units The following results were obtained with the ApplyMap QUANTA Lite Gliadin IgA NASIM. Gliadin IgA values obtained with different manufacturers' assay methods may not be used interchangeably. The magnitude of the reported IgA levels cannot be correlated to an endpoint titer. Performed By: #### C BCDIF, WSR, FT4, IGA, CMP, LIPA, LIPB, TSH, CRP, TGIGA, GLIAD, TGIGG ####[facility] [place], [place] [phone] Gliad IgG Ab 4 Units Normal <20 [facility] Comment on above: Result Comment: Nega tive : < 20 Units Weak Positive : 20 - 30 Units Moderate Pos to Strong Pos: >30 Units The following results were obtained with the ApplyMap QUANTA Lite Gliadin IgG NASIM. Gliadin IgG values obtained with different manufacturers' assay methods may not be used interchangeably. The magnitude of the reported IgG levels cannot be correlated to an endpoint titer. Performed By: #### C BCDIF, WSR, FT4, IGA, CMP, LIPA, LIPB, TSH, CRP, TGIGA, GLIAD, TGIGG ####[facility] [place], [place] [phone] HISTORY PHYSICALon 9 HISTORY PHYSICAL HNO ID: [id number] Author: Mayra Hicks) MD Gordo Service: Pediatric [...] 26, 2019 TIME: 7:50 AM PAGER: Normal [facility] IgAon 01-26-2019 IgA mass conc 112 mg/dL Normal 78-391 [facility] Comment on above: Performed By: #### C BCDIF, WSR, FT4, IGA, CMP, LIPA, LIPB, TSH, CRP, TGIGA, GLIAD, TGIGG ####[address] [phone] Lipaseon 01-26-2019 Lipase enzyme act/vol 12 U/L Low 16-61 [facility] Comment on above: Result Comment: (NOT E) Reference ranges for this patient's age group have not been established. These reference ranges reflect verified or established ranges for the adult population. Interpret these ranges with caution using the clinical context and additional reference resources. Performed By: #### C BCDIF, WSR, FT4, IGA, CMP, LIPA, LIPB, TSH, CRP, TGIGA, GLIAD, TGIGG ####[address] [phone] Lipid Panel, Basicon 019 Cholesterol in HDL mass conc 44 mg/dL Low >45 [facility] Comment on above: Result Comment: >45 mg/dL, Acceptable 40-45 mg/dL, Borderline <40 mg/dL, Low Performed By: #### C BCDIF, WSR, FT4, IGA, CMP, LIPA, LIPB, TSH, CRP, TGIGA, GLIAD, TGIGG ####[address] [phone] Cholesterol in LDL mass conc 32 mg/dL Normal <110 [facility] Comment on above: Result Comment: <110 mg/dL, Acceptable 110-129 mg/dL, Borderline high >129 mg/dL, High Performed By: #### C BCDIF, WSR, FT4, IGA, CMP, LIPA, LIPB, TSH, CRP, TGIGA, GLIAD, TGIGG ####[address] [phone] Cholesterol mass conc 142 mg/dL Normal <170 [facility] Comment on above: Result Comment: <170 mg/dL, Acceptable 170-199 mg/dL, Borderline high >199 mg/dL, High Performed By: #### C BCDIF, WSR, FT4, IGA, CMP, LIPA, LIPB, TSH, CRP, TGIGA, GLIAD, TGIGG ####[place] [id number] [place], [place] [phone] Fasting Time Unknown Normal [facility] Comment on above: Performed By: #### C BCDIF, WSR, FT4, IGA, CMP, LIPA, LIPB, TSH, CRP, TGIGA, GLIAD, TGIGG ####[address] [phone] LDL:HDL Ratio 0.73 Normal <2.42 [facility] Comment on above: Result Comment: Refe allen: 1. Expert Panel on Integrated Guidelines for Cardiovascular Health and Risk Reduction in Children and Adolescents: National Heart, Lung and Blood Bowen. Pediatrics. 2011: 128(Suppl 5):S479-129. Performed By: #### C BCDIF, WSR, FT4, IGA, CMP, LIPA, LIPB, TSH, CRP, TGIGA, GLIAD, TGIGG ####[address] [phone] Non HDL Cholesterol 98 mg/dL Normal <120 [facility] Comment on above: Result Comment: <120 mg/dL, Acceptable 120-144 mg/dL, Borderline high >144 mg/dL, High Performed By: #### C BCDIF, WSR, FT4, IGA, CMP, LIPA, LIPB, TSH, CRP, TGIGA, GLIAD, TGIGG ####[place] [address] [address] [place], [place] [phone] TC:HDL Ratio 3.23 Normal <3.76 [facility] Comment on above: Performed By: #### C BCDIF, WSR, FT4, IGA, CMP, LIPA, LIPB, TSH, CRP, TGIGA, GLIAD, TGIGG ####[place] [id number] [place] [place], [place] [phone] Triglyceride mass conc 330 mg/dL High <90 [facility] Comment on above: Result Comment: <90 mg/dL, Acceptable 90-129 mg/dL, Borderline high >129 mg/dL, High Performed By: #### C BCDIF, WSR, FT4, IGA, CMP, LIPA, LIPB, TSH, CRP, TGIGA, GLIAD, TGIGG ####[facility] [place], [place] [phone] VLDL Cholesterol 66 mg/dL High <18 [facility] Comment on above: Performed By: #### C BCDIF, WSR, FT4, IGA, CMP, LIPA, LIPB, TSH, CRP, TGIGA, GLIAD, TGIGG ####[facility] [place], [place] [phone] OPERATIVE NOon 01-26-2019 OPERATIVE NO HNO ID: [id number] Author: Mayra Hicks) MD [place] Service: Pediatric Gastroenterology Author Type: Physician Type: Operative Report Filed: 01/26/2019 8:45 AM Note Text: OPERATIVE/PROCEDURE REPORT LOG ID: [id number] SURGERY/PROCEDURE DATE: 01/26/2019 INCISION/PROCEDURE START TIME: 8:04 AM INCISION CLOSE/PROCEDURE END TIME: 8:40 AM SURGEON(S)/PROCEDURALIS T(S) AND CORNCOB PIPE SUPERVISOR(S): Surgeon(s) and Role: * Mayra Hicks) MD [...] consent , the patient was brought to OR#95 and placed in the supine position. General [...] 2019 TIME: 8:43 AM PAGER/CONTACT #: Ozzy [facility] PT EDon 01-26-2019 PT ED HNO ID: [id number] Author: Lois (Rn) CLIVE Robertson Service: Nursing Author Type: Registered Nurse Type: Patient Education Filed: 01/26/2019 9:22 AM Note Text: PATIENT EDUCATION TOPIC: PROCEDURE / SURGERY: Post Procedure Teaching: Symptom Management PATIENT NAME: Hank Bryan PATIENT LOCATION: [place] [address] READINESS TO LEARN COGNITIVE ABILITY: Alert and [...] Electronically Signed By: Lois Robertson RN Normal [facility] PT ED HNO ID: [id number] Author: Sade Flowers (Rn) CLIVE Serrato Service: [...] RN In Department: HOSP MAIN M020 Normal [facility] SURGICAL PATHOLOGYon 019 SURGICAL PATHOLOGY Specimen originated from [facility] Specimen #: [id number] Submitting Physician: MAYRA CARO MD FINAL DIAGNOSIS [...] 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 JJ/sunitha 01/27/2019 Gloria Romo M.D. (Electronic Signature) SPECIMEN [...] in one cassette. Gross examination performed at [facility], [address] [place] [address] RVW 01/26/2019 4:23:58 PM Date of Report: 01/27/2019 Date of Procedure: 01/26/2019 Date of Receipt: 01/26/2019 Submitted by: MAYRA CARO MD Location: [facility] Diagnostic interpretation performed at [facility], [address] [place] [address], [place] [address]. CLIA Number: [id number] Normal [facility] Sed Rate Westergrenon 2018 Sed Rate Westergren 5 mm/hr Normal 0-20 [facility] Comment on above: Performed By: #### C BCDIF, WSR, FT4, IGA, CMP, LIPA, LIPB, TSH, CRP, TGIGA, GLIAD, TGIGG ####[place] [address] [place], [place] [phone] TSHon 01-26-2019 Thyrotropin Qn 4.280 uU/mL Normal 0.510-4.300 [facility] Comment on above: Result Comment: Refe rence ranges were not locally established for this patient's age group. The normal values are based on the following source: Sushila W, [place]. Reference Ranges for Adults and Children: Pre-analytical Considerations. [facility] Performed By: #### C BCDIF, WSR, FT4, IGA, CMP, LIPA, LIPB, TSH, CRP, TGIGA, GLIAD, TGIGG ####[facility] [place], [place] [phone] Transglutaminase IgAon 01-26 Transglutaminase IgA 2 Units Normal <20 [facility] Comment on above: Result Comment: Nega tive : < 20 Units Weak Positive : 20 - 30 Units Moderate Pos to Strong Pos: >30 Units The following results were obtained with the [employer] QUANTA Lite h-tTG IgA NASIM. h-tTG IgA values obtained with different manufacturers' assay methods may not be used interchangeably. The magnitude of the reported IgA levels cannot be correlated to an endpoint titer. Performed By: #### C BCDIF, WSR, FT4, IGA, CMP, LIPA, LIPB, TSH, CRP, TGIGA, GLIAD, TGIGG ####[facility] [place], [place] [phone] Transglutaminase IgGon 01-26 Transglutaminase IgG 3 Units Normal <20 [facility] Comment on above: Result Comment: Nega tive : < 20 Units Weak Positive : 20 - 30 Units Moderate Pos to Strong Pos: >30 Units The following results were obtained with the ApplyMap QUANTA Lite h-hTG IgG NASIM. h-tTG IgG values obtained with different manufacturers' assay methods may not be used interchangeably. The magnitude of the reported IgG levels cannot be correlated to an endpoint titer. Performed By: #### C BCDIF, WSR, FT4, IGA, CMP, LIPA, LIPB, TSH, CRP, TGIGA, GLIAD, TGIGG ####[facility] [place], [place] [phone] CNOVon 01-04-2019 CNOV Office Visit (PGASMN ) HANK BRYAN ([id number]) 4 F Date Time Provider Department 01/04/19 10:00 AM [facility]RA CARO[facility] During your visit today, we recorded the [...] with cramps and diarrhea. She is having teacher preschool stools (5 am). 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 She has poor sleep, typically will nap [...] symptoms began, she was referred to an ward secretary who diagnosed seasonal allergies. 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 Smoking Exposure: Life Stress: School stress Physical Exam: 01/04/19 0944 BP: 128/69 Pulse: 88 Resp: 19 Temp: 36.5 ?C (97.7 ?F) TempSrc: Temporal Weight: 114.8 kg (253 lb) Height: 158 cm (5' 2.21 ) Wt 114.8 kg (253 lb) BMI 45.97 kg/m2 (>99 %ile (Z= 2.52) based on CDC (Girls, 2-20 Years) tacauc-krh-jna data using vitals from 01/04/2019.)(>99 %ile (Z= [...] Justus Byrd MD Pediatric Gastroenterology Fellow Pager: [phone] 01/04/19 9:51 AM Staff Addendum Resident and [...] 2019 10:35 AM CC: Enrico Ceballos MD [address] [place] [address] Justus Byrd MD 01/04/2019 10:53 AM Addendum [...] Call us if any of this occurs: [phone] CLEAR LIQUIDS INCLUDE: Strained fruit juices without [...] 5pm, ask for the Pediatric GI Fellow plant operator control room operator. Failure to complete your prep may result [...] or anesthesia are required to have a yard truck driver present. Procedures will not be performed if a yard truck driver is not available. O It is advised on procedure days that patients not attend school, work or participate in physical activities for the remainder of the day. O Please be advised that there will be no one present at the manager helpdesk to check you in between 7:00 am [...] 5pm, ask for the Pediatric GI Fellow plant operator control room operator. O The afternoon before your scheduled procedure, call after 2:00pm, but before 5:00pm, to receive your pre-operative time and procedure time. - We would like to see you back in 4-6 weeks for follow up - Please call back sooner if you have questions or if new symptoms arise Referring Provider: ISABEL ALEXIS [[id number]] Allergies As of Date: 01/04/2019 Noted Allergy [...] [R10.11] Order(s):CBC + DIFF [SQCBCDIF] Order #: [id number] FUTURE COMP METABOLIC PANEL [SQCMP] Order #: [id number] FUTURE SED RATE WESTERGREN [SQWSR] Order #: [id number] FUTURE LIPASE BLD [SQLIPA] Order #: [id number] FUTURE T4 FREE/FREE THYROX [SQFT4] Order #: [id number] FUTURE TSH BLD [SQTSH] Order #: [id number] FUTURE LIPID PANEL BASIC [SQLIPB] Order #: [id number] FUTURE GLIADIN (DEAMINATED) ABS [SQGLIAD] Order #: [id number] FUTURE TRANSGLUTAMINASE IGG [SQTGIGG] Order #: [id number] FUTURE TRANSGLUTAMINASE IGA [SQTGIGA] Order #: [id number] FUTURE IGA BLD [SQIGA] Order #: [id number] FUTURE US ABDOMEN COMPLETE [1153943-XJX] Order #: [id number] FUTURE SURGICAL REQUEST - ELECTIVE [6841322] Order #: [id number]: 1 C-REACTIVE PROTEIN (CRP) [SQCRP] Order #: [id number] FUTURE Prescriptions as of 01/04/2019 Sig: ONDANSETRON [...] Call us if any of this occurs: [phone] CLEAR LIQUIDS INCLUDE: Strained fruit juices without [...] 5pm, ask for the Pediatric GI Fellow plant operator control room operator. Failure to complete your prep may result [...] or anesthesia are required to have a yard truck driver present. Procedures will not be performed if a yard truck driver is not available. O It is advised on procedure days that patients not attend school, work or participate in physical activities for the remainder of the day. O Please be advised that there will be no one present at the manager helpdesk to check you in between 7:00 am [...] 5pm, ask for the Pediatric GI Fellow plant operator control room operator. O The afternoon before your scheduled procedure, [...] Status:Closed by MAYRA CARO MD on 01/05/19 [facility] HISTORY PHYSICALon HISTORY PHYSICAL HNO ID: [id number] Author: Mayra Hicks) MD Gordo Service: ? [...] with cramps and diarrhea. She is having teacher preschool stools (5 am). 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 She has poor sleep, typically will nap [...] symptoms began, she was referred to an ward secretary who diagnosed seasonal allergies. 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 Smoking Exposure: Life Stress: School stress Physical Exam: 01/04/19 0944 BP: 128/69 Pulse: 88 Resp: 19 Temp: 36.5 ?C (97.7 ?F) TempSrc: Temporal Weight: 114.8 kg (253 lb) Height: 158 cm (5' 2.21 ) Wt 114.8 kg (253 lb) BMI 45.97 kg/m2 (>99 %ile (Z= 2.52) based on CDC (Girls, 2-20 Years) kgvdws-dtl-bcg data using vitals from 01/04/2019.)(>99 %ile (Z= [...] EGD ordered and consent signed [place] [facility] [place] instructions given to patient and discussed Meds ordered today include: none Follow up 4-6 weeks (after US and endoscopies) or sooner if issues arise Justus Byrd MD Pediatric Gastroenterology Fellow Pager: [phone] 01/04/19 9:51 AM Staff Addendum Resident and [...] 10:35 AM CC: Enrico Ceballos MD [address] [address] [facility] HOSP 01-04-2019 HOSP Patient:Hank Bryan MRN: Height:5' 2.205 (1.58 m) [...] in Thank you Progress Notes (PEDS CARD [facility]): All Horne DO 01/02/2019 11:18 AM [...] any activity restrictions nor SBE prophylaxis. Normal [facility] US ABDOMEN COMPLETEon 2018 US ABDOMEN COMPLETE * * *Final Report* * * DATE OF EXAM: Jan 04 2019 1:23PM [facility] [place] [facility] 1040 - US ABDOMEN COMPLETE / PROCEDURE [...] gases, otherwise unremarkable ultrasound of the abdomen. Reducing Salon Attendant: VASQUEZ Transcribe Date/Time: Jan 04 2019 1:28P Dictated by : JULIANE LOONEY MD This examination was interpreted and the report reviewed and electronically signed by: JULIANE LOONEY MD on Jan 04 2019 1:31PM EST [id number] Normal [facility] PROGRESSon 12-09-2018 Protein mass conc HNO ID: [id number] Author: Abe Campa Ex Phys Service: ? Author Type: ? Type: Progress [...] in 14 days 6) Call with problems [phone] Verbalized understanding of instructions by parent. SIGNATURE: Abe Campa Ex Phys PATIENT NAME: Hank Bryan DATE: December 09, 2018 TIME: 7:34 AM Normal [facility] CNOVon 12-08-2018 CNOV Office Visit (PECAFV ) RANDIHANK CUMMINS ([id number]) 4 F Date Time Provider Department 12/08/18 3:00 PM [facility] During your visit today, we recorded the following information about you: Abe Campa Ex Phys 12/09/2018 7:35 AM Signed ZIOPATCH APPLICATION PEDIATRIC CARDIOLOGY -Chest is cleansed and prepped with razor, prep tape, and alcohol. -Ziopatch placed on chest -Ziopatch activated -Instructed parent 1) Diary documentation 2) Usage of event button 3) Maintenance and care of monitor 4) Safety issues with monitor 5) Return unit in 14 days 6) Call with problems [phone] Verbalized understanding of instructions by parent. SIGNATURE: Abe Ansari PATIENT NAME: Hank Bryan DATE: December 09, 2018 TIME: 7:34 AM Referring Provider: ALL HORNE [[id number]] Allergies As of Date: 12/08/2018 Noted Allergy [...] Encounter Status:Closed by ABE HERMOSILLO on 12/09/18 [facility] Office Visit (PECAFV ) HANK BRYAN ([id number]) 4 F Date Time Provider Department 12/08/18 [...] old 5 month old female patient at [facility] Pediatric Cardiology, on 12/08/18. Hank was referred [...] us. Thank you for the consultation. Yours rudolph, Jagdish Horne D.O., PhD [facility] Pediatric Cardiology [facility] Devinpete Papo, 12/08/2018 3:15 PM Signed Diagnosis: palpitations. Normal [...] that activity again. Referring Provider: ISABEL ALEXIS [[id number]] Allergies As of Date: 12/08/2018 Noted Allergy [...] CARDIAC OUTPATIENT EXTENDED RHYTHM RECORDING (WITHOUT TELEMETRY) [[id number]] Order #: [id number]: 1 Prescriptions as of 12/08/2018 Sig: ALBUTEROL [...] Status:Closed by ALL HORNE DO on 12/08/18 [facility] ECG COMPLETEon 12-08-2018 ECG COMPLETE NAME : HANK BRYAN PID : [id number] : 2000 Gender : Female Race : Unknown ORD : [id number] Procedure Date : Dec 08 2018 14:50:13 Edit Date : Dec 09 2018 08:29:13 Diagnosis:NORMAL SINUS RHYTHM NORMAL ECG Confirmed by ALL HORNE D.O. ([id number]) on 12/09/2018 8:29:08 AM Ventricular Rate : 94 BPM Atrial Rate : 94 BPM P-R Interval : 152 ms QRS Duration : 82 ms Q-T Interval : 344 ms QTC Calculation(Bezet) : 430 ms P [place] : 34 degrees R [place] : 13 degrees T [place] : 18 degrees Test Reason : Location : 224 : FVPED Overread By : ALL HORNE D.O. Edited By : ALL HORNE D.O. Referred By : ALL HORNE Acquired by : Ozzy HUSTON [facility] PROCEDUREon 12-08-2018 Protein mass conc HNO ID: [id number] Author: Chino Aguirre Service: ? Author Type: [...] VE Triplets were present. Chino Aguirre MD, [facility] Pediatric Electrophysiology [facility] January 01, 2019, 1:35 PM Normal [facility] PROGRESSon 12-08-2018 Protein mass conc HNO ID: [id number] Author: All Horne Service: ? Author Type: [...] old 5 month old female patient at [facility] Pediatric Cardiology, on 12/08/18. Hank was referred [...] Thank you for the consultation. Yours truly, Jagdish Horne D.O., PhD [facility] Pediatric Cardiology [facility] CNOVon 12-01-2018 CNOV Office Visit (PEPUAV ) HANK BRYAN ([id number]) 4 F Date Time Provider Department 12/01/18 [...] nodules. I only have records from her ward secretary and do not have access to the [...] dogs, 1 pigs, 3 lizards Maria Isabel: Xejb-ra-jtex carpeting, Hardwood floor, Tile Air conditioning: Window [...] 97%; FEV1 95 %; FEV1/FVC 89 %; OYR52-07 110 % Impression: Spirometry: normal ASSESSMENT: Encounter [...] and camping in Hist[place] endemic regions of [place]. However, I can't make a true assessment [...] with another provider: Yes Follow up in [place] [facility] 3-6 months with spirometry depending on the imaging studies. Call or return sooner if the symptoms worsen, do not improve as expected or new symptoms or problems arise. Thank you for allowing me to assist in the care of Hank. Please do not hesitate to contact me if I can be of further assistance. Isabel Alexis MD [facility] Pediatric Pulmonary Medicine cc: Enrico Ceballos MD [address] [place] [address] Isabel Alexis MD, MD 12/01/2018 1:47 PM [...] Cardiologists, he goes to a clinic in [place], so that is at least a little bit closer to you ? I will want her to come back in 3-6 months depending on what I see on the CT scan, and I will have it repeated at that visit. ? Don't hesitate to contact me with any questions: OFFICE NUMBER: [phone] Referring Provider: ENRICO CEBALLOS [[id number]] Allergies As of Date: 12/01/2018 Noted Allergy [...] Palpitations [R00.2] Order(s):SPIROMETRY WITH DILATOR IF OBSTRUCTED [1240243] Order #: [id number] FUTURE CONSULT TO PEDS CARDIOLOGY [19991110] Order #: [id number]: 1 CONSULT TO PEDS GASTRO [19991114] Order #: [id number]: 1 Problem List As Of Date 12/01/2018 [...] Cardiologists, he goes to a clinic in [place], so that is at least a little bit closer to you ? I will want her to come back in 3-6 months depending on what I see on the CT scan, and I will have it repeated at that visit. ? Don't hesitate to contact me with any questions: OFFICE NUMBER: [phone] Follow-up and Disposition History Recorded Letter Text [place] [facility] [address] [facility]/[address] [address] December 01, 2018 RE: Hank Bryan CC#: [id number] To Whom It May Concern: Please excuse Hank Bryan from school 12/01/2018. She was seen today for a doctor's appointment. Sincerely, Isabel Alexis MD Letter Text [place] [facility] [address] [place]/[address] [address] December 01, 2018 Enrico Ceballos MD [address] [place] [address] RE: Hank Bryan CC#: [id number] Dear Dr. Enrico Ceballos MD: I saw your patient, Hank Bryan, in my office at the [facility] on 12/01/2018 for evaluation of her pulmonary nodules. Enclosed is a copy of my examination for your records. Thank you for this referral and please feel free to contact me if you have any further questions regarding this patient. Sincerely, Isabel Alexis MD [phone] Hank is a 18 year old female [...] nodules. I only have records from her ward secretary and do not have access to the [...] dogs, 1 pigs, 3 lizards Maria Isabel: Xhos-ip-odrh carpeting, Hardwood floor, Tile Air conditioning: Window [...] 97%; FEV1 95 %; FEV1/FVC 89 %; KAG74-24 110 % Impression: Spirometry: normal ASSESSMENT: Encounter Diagnosis ICD-10-CM 1. Lung nodules R91.8 SPIROMETRY WITH DILATOR IF OBSTRUCTED 2. Mild intermittent asthma without complication J45.20 3. Generalized abdominal pain R10.84 Audiarnaud is a 18 year old female with a h/o mild persistent, now intermittent asthma and a CT with reported pulmonary nodules (images currently not available): The most likely etiology for the nodules is post infectious or post inflammatory; she has been hiking and camping in [place] endemic regions of [place]. However, I can't make a true assessment [...] I can be of further assistance. Isabel Alexsi MD [place] [facility] cc: Enrico Ceballos MD [address] [place] [address] Encounter Status:Closed by ISABEL ALEXIS MD on 12/01/18 [facility] CNOV Office Visit (PEPLAV ) HANK BRYAN ([id number]) 4 F Date Time Provider Department 12/01/18 12:30 PM PEDS PULM FUNC TECH REJ PEPLAV During your visit today, we recorded the following information about you: Weight Height 115.5 kg 1.59 m Referring Provider: ENRICO CEBALLOS [[id number]] Allergies As of Date: 12/01/2018 (Not on File) Date Reviewed: Never Reviewed Reason for Visit: Spirometry [191] Visit Diagnosis:Lung nodules [R91.8] Order(s):SPIROMETRY WITH DILATOR IF OBSTRUCTED [7881055] Order #: [id number]. #:[id number] Problem List As Of Date: 12/01/2018 (None) [...] SIMI DE LA ROSA on 12/01/18 Normal [facility] PROGRESSon 12-01-2018 Protein mass conc HNO ID: [id number] Author: Isabel Alexis MD Service: (none) Author [...] nodules. I only have records from her ward secretary and do not have access to the [...] dogs, 1 pigs, 3 lizards Maria Isabel: Hxnl-ss-pqyy carpeting, Hardwood floor, Tile Air conditioning: Window [...] 97%; FEV1 95 %; FEV1/FVC 89 %; MHE85-03 110 % Impression: Spirometry: normal ASSESSMENT: Encounter [...] and camping in [place] endemic [place]. However, I can't make a true assessment [...] with another provider: Yes Follow up in [place] [facility] 3-6 months with spirometry depending on the imaging studies. Call or return sooner if the symptoms worsen, do not improve as expected or new symptoms or problems arise. Thank you for allowing me to assist in the care of Hank. Please do not hesitate to contact me if I can be of further assistance. Isabel Alexis MD [place] [facility] cc: Enrico Ceballos MD [address] [place] [address] Normal [facility] XR CHEST 2 Von 11-02-2018 XR CHEST [address] [place] [phone] Patient: HANK BRYAN Exam Date: 11/02/2018 : 2000 Gender:F Ordering : DR ENRICO CEBALLOS M.D. Admission #: [id number] Family : Order #: [id number] CLICK HERE TO VIEW EXAM RADIOLOGY REPORT [...] Jiang M.D. on 11/02/2018 at 20:37 Normal [facility] CT CHEST WO CONon 10-19-2018 CT CHEST WO CON [address] [place] [address] Patient: HANK BRYAN Exam Date: 10/19/2018 : 2000 Gender:F Ordering : DR ENRICO CEBALLOS M.D. Admission #: [id number] Family : Order #: [id number] CLICK HERE TO VIEW EXAM RADIOLOGY REPORT [...] Dayton Jiang M.D. on 10/19/2018 at 12:[address] [facility] [address] ABD/PELVIS W CONon 2017 CT ABD/PELVIS W CON [address] [place] [address] Patient: HANK BRYAN Exam Date: 10/05/2018 : 2000 Gender:F Ordering : DR ENRICO CEBALLOS M.D. Admission #: [id number] Family : Order #: [id number] CLICK HERE TO VIEW EXAM RADIOLOGY REPORT [...] Israel Kessler M.D. on 10/05/2018 at 14:16 [facility] XR ABD FLAT/UPon 09-22-2018 XR ABD FLAT/UP [address] [place] [address] Patient: HANK BRYAN Exam Date: 09/22/2018 : 2000 Gender:F Ordering : DR ENRICO CEBALLOS M.D. Admission #: [id number] Family : Order #: [id number] CLICK HERE TO VIEW EXAM RADIOLOGY REPORT [...] Kessler M.D. on 09/22/2018 at 10:07 Normal [facility] XR CHEST 2 Von 12-25-2017 XR CHEST [address] [place] [phone] Patient: HANK BRYAN Exam Date: 12/25/2017 : 2000 Gender:F Ordering : DR ENRICO CEBALLOS M.D. Admission #: [id number] Family : Order #: [id number] CLICK HERE TO VIEW EXAM RADIOLOGY REPORT [...] Israel Kessler M.D. on 12/25/2017 at 13:28 Normal [facility] Vital Signs Date Time Vital Sign Value Performing Clinician Facility 07-24-2021 12:40-0400 Body height 157.48 cm Poppy Prajapati Other [facility] Other 07-24-2021 12:40-0400 Body mass index (BMI) [Ratio] 51.54 kg/m2 Poppy Prajapati Other [facility] Other 07-24-2021 12:40-0400 Body temperature 97.8 [degF] Poppy Prajapati Other [facility] Other 07-24-2021 12:40-0400 Body weight 127.82 kg Poppy Prajapati Other [facility] Other 07-24-2021 12:40-0400 Diastolic blood pressure 62 mm[Hg] Poppy Prajapati Other [facility] Other 07-24-2021 12:40-0400 Respiratory rate 18 /min Poppy Prajapati Other [facility] Other 07-24-2021 12:40-0400 SaO2% (BldA) [Mass fraction] 99 % Poppy Prajapati Other [facility] Other 07-24-2021 12:40-0400 Systolic blood pressure 120 mm[Hg] Poppy Prajapati Other [facility] Other Encounters Encounter Date Encounter Type Care Provider Facility Start: 04-05-2024 End: 04-05-2024 ambulatory LESLIE DAVIDSON Not Available Start: 03-24-2024 End: 03-24-2024 ambulatory PEYTON RAMBASEK Not Available Start: 03-22-2024 End: 03-22-2024 ambulatory PEYTON RAMBASEK Not Available Start: 03-10-2024 End: 03-10-2024 ambulatory PEYTON RAMBASEK Not Available Start: 02-25-2024 End: 02-25-2024 ambulatory PEYTON RAMBASEK Not Available Start: 02-18-2024 End: 02-18-2024 ambulatory PEYTON RAMBASEK Not Available Start: 02-16-2024 End: 02-16-2024 ambulatory PEYTON RAMBASEK Not Available Start: 02-09-2024 End: 02-09-2024 ambulatory PEYTON RAMBASEK Not Available Start: 02-06-2024 End: 02-06-2024 ambulatory LESLIE Calvin LETY Not Available Start: 02-04-2024 End: 02-04-2024 ambulatory PEYTON RAMBASEK Not Available Start: 01-21-2024 End: 01-21-2024 ambulatory PEYTON RAMBASEK Not Available Start: 01-14-2024 End: 01-14-2024 ambulatory PEYTON RAMBASEK Not Available Start: 12-17-2023 End: 12-17-2023 ambulatory PEYTON RAMBASEK Not Available Start: 12-15-2023 End: 12-15-2023 ambulatory AKIN AMBER Not Available Start: 12-10-2023 End: 12-10-2023 ambulatory PEYTON RAMBASEK Not Available Start: 12-03-2023 End: 12-03-2023 ambulatory PEYTON RAMBASEK Not Available Start: 11-19-2023 Telephone encounter Peyton chakraborty MD Work Phone: [facility] Start: 11-17-2023 End: 11-17-2023 ambulatory AKIN AMBER Not Available Start: 10-27-2023 End: 10-27-2023 ambulatory PEYTON E RAMBASEK Not Available Start: 08-27-2023 End: 08-27-2023 ambulatory LESLIE Marixa LETY Not Available Start: 11-18-2022 End: 11-18-2022 ambulatory Funmilayo Colon Facility:[facility] Start: 07-24-2021 Office outpatient vi sit 15 minutes Poppy Prajapati [facility] Start: 01-26-2019 End: 01-26-2019 Patient encounter procedure MAYRA HICKS) [facility] Start: 01-04-2019 End: 01-06-2019 Patient encounter procedure MAYRA HICKS) [facility] Start: 12-12-2018 End: 12-12-2018 Patient encounter procedure ENRICO CEBALLOS Facility: Start: 12-08-2018 End: 01-04-2019 Patient encounter procedure ALL HORNE [facility] Start: 12-01-2018 End: 12-03-2018 Patient encounter procedure ENRICO FORTUNE LIN [facility] Start: 11-02-2018 End: 11-03-2018 Patient encounter procedure [...] 04-04-2024 Influenza vaccination Influenza Vacc ine (#1) [facility] Comment on above: Postponed from 06/06 (Patient Refused) Start: 12-15-2023 End: 12-15-2023 Patient encounter procedure 12/15/2023 2:40 PM EDT Office Visit [facility] OB [address] [address] Akin Huertas DO [address] [place], [place] [id number] [facility] OB Immunizations Immunization Date Immunization Notes Care Provider Fa cili 07-24-2021 Toradol 30 mg/ml Poppy yu Other [facility] Other 04-03-2020 tuberculin skin test ; purified protein derivative solution, intradermal Peyton Alexis MD Work Phone: [facility] 05-07-2019 tuberculin skin test ; purified protein derivative solution, intradermal Peyton Alexis MD Work Phone: [facility] 05-04-2019 meningococcal oligosaccharide (groups A, C, Y and W-135) diphtheria toxoid conjugate vaccine (MCV4O) Peyton Alexis MD Work Phone: [facility] 02-06-2018 Toradol per 15 mg Poppy Victorina Other [facility] Other 12-09-2017 PROMETHAZINE (Phener alphonso) up to 50 mg Poppy Victorina Other [facility] Other 12-09-2017 Toradol per 15 mg Poppy Victorina Other [facility] Other 10-14-2017 PROMETHAZINE (Phener alphonso) up to 50 mg Poppy Victorina Other [facility] Other 10-14-2017 Toradol per 15 mg Poppy Victorina Other [facility] Other 10-31-2015 Human Papillomavirus 9-valent vaccine Peyton Alexis MD Work Phone: [facility] 06-19-2015 human papilloma viru s vaccine, quadrivalent Peyton Alexis MD Work Phone: [facility] 06-19-2015 meningococcal oligosaccharide (groups A, C, Y and W-135) diphtheria toxoid conjugate vaccine (MCV4O) Peyton Alexis MD Work Phone: [facility] 04-17-2015 human papilloma viru s vaccine, quadrivalent Peyton Alexis MD Work Phone: [facility] 04-17-2015 tetanus toxoid, redu rey diphtheria toxoid, and acellular pertussis vaccine, adsorbed Peyton Alexis MD Work Phone: [facility] [facility] 11-18-2012 hepatitis A vaccine, pediatric/adolescent dosage, 2 dose schedule Peyton Alexis MD Work Phone: [facility] 11-18-2012 influenza, seasonal, injectable Peyton Alexis MD Work Phone: [facility] 11-18-2012 influenza virus vacc ine, unspecified formulation Peyton Alexis MD Work Phone: [facility] 11-11-2011 influenza, seasonal, injectable Peyton Alexis MD Work Phone: [facility] 08-07-2011 hepatitis A vaccine, pediatric/adolescent dosage, 2 dose schedule Peyton Alexis MD Work Phone: [facility] 08-07-2011 varicella virus vaccine Peyton Alexis MD Work Phone: [facility] 01-24-2011 influenza virus vacc ine, whole virus Peyton Alexis MD Work Phone: [facility] 11-08-2010 influenza virus vacc ine, whole virus Peyton Alexis MD Work Phone: [facility] 09-12-2009 influenza virus vacc ine, whole virus Peyton Alexis MD Work Phone: [facility] 07-24-2009 influenza virus vacc ine, whole virus Peyton Alexis MD Work Phone: [facility] 03-11-2008 diphtheria, tetanus toxoids and acellular pertussis vaccine Peyton Alexis MD Work Phone: [facility] 03-11-2008 measles, mumps and rubella virus vaccine Peyton Alexis MD Work Phone: [facility] 03-11-2008 poliovirus vaccine, inactivated Peyton Alexis MD Work Phone: [facility] 05-02-2004 hepatitis B vaccine, pediatric or pediatric/adolescent dosage Peyton Alexis MD Work Phone: [facility] 05-02-2004 pneumococcal conjuga te vaccine, 7 valent Peyton Alexis MD Work Phone: [facility] 10-20-2003 diphtheria, tetanus toxoids and acellular pertussis vaccine, unspecified formulation Peyton Alexis MD Work Phone: [facility] 10-20-2003 haemophilus influenz ae type b conjugate and Hepatitis B vaccine Peyton Alexis MD Work Phone: [facility] 10-20-2003 measles, mumps and rubella virus vaccine Peyton Alexis MD Work Phone: [facility] 10-20-2003 varicella virus vaccine Peyton Alexis MD Work Phone: [facility] 03-17-2003 diphtheria, tetanus toxoids and acellular pertussis vaccine Peyton Alexis MD Work Phone: [facility] 03-17-2003 haemophilus influenz ae type b vaccine, PRP-T conjugate Peyton Alexis MD Work Phone: [facility] 03-17-2003 pneumococcal conjuga te vaccine, 7 valent Peyton Alexis MD Work Phone: [facility] 03-17-2003 poliovirus vaccine, inactivated Peyton Alexis MD Work Phone: [facility] 2002 diphtheria, tetanus toxoids and acellular pertussis vaccine, 5 pertussis antigens Peyton Alexis MD Work Phone: [facility] 2002 haemophilus influenz ae type b conjugate and Hepatitis B vaccine Peyton Alexis MD Work Phone: [facility] 2002 pneumococcal conjuga te vaccine, 7 valent Peyton Alexis MD Work Phone: [facility] 2002 poliovirus vaccine, inactivated Peyton Alexis MD Work Phone: [facility] 2002 diphtheria, tetanus toxoids and acellular pertussis vaccine, 5 pertussis antigens Peyton Alexis MD Work Phone: [facility] 2002 haemophilus influenz ae type b conjugate and Hepatitis B vaccine Peyton Alexis MD Work Phone: [facility] 2002 poliovirus vaccine, inactivated Peyton Alexis MD Work Phone: [facility] Payers Date Payer Category Payer Private Health Insurance [id number] 2022 Self-pay 2022 Private Health Insurance MECCA GOLDEN [id number] 2022-Present [facility] [id number] [place] [id number] 2022 Private Health Insurance [id number] 2022 [facility] [employer] [place] [id number] 2022-Present [address] [place] [address] [id number] 2022 Medicaid [id number] 2002 Unknown [id number] 2.16.840.1.351551.3.579.2.5 93 2002 Unknown [id number] 2.16.840.1.671092.3.579.2.1 259 2002 Unknown [id number] 2.16.840.1.872917.3.579.2.1 259 2002 Unknown [id number] 2.16.840.1.883879.3.579.2.1 259 2002 Unknown [id number] 2.16.840.1.641935.3.579.2.1 259 2002 Unknown [id number] 2.16.840.1.923002.3.579.2.1 259 2002 Unknown [id number] 2.16.840.1.032135.3.579.2.1 259 2002 Unknown [id number] 2.16.840.1.578743.3.579.2.1 259 2002 Unknown [id number] 2.16.840.1.176218.3.579.2.1 259 2002 Unknown [id number] 2.16.840.1.512577.3.579.2.1 259 2002 Unknown [id number] 2.16.840.1.247132.3.579.2.1 259 2002 Unknown [id number] 2.16.840.1.688424.3.579.2.1 259 2002 Unknown [id number] 2.16.840.1.547237.3.579.2.1 259 2002 Unknown [id number] 2.16.840.1.919193.3.579.2.1 259 2002 Unknown [id number] 2.16.840.1.479981.3.579.2.1 259 2002 Unknown [id number] 2.16.840.1.360976.3.579.2.1 259 2002 Unknown [id number] 2.16.840.1.387663.3.579.2.1 259 2002 Unknown [id number] 2.16.840.1.469071.3.579.2.1 259 2002 Unknown [id number] 2.16.840.1.757318.3.579.2.1 259 2002 Unknown [id number] 2.16.840.1.153612.3.579.2.1 259 1981 Unknown [id number] 2.16.840.1.919497.3.579.2.5 93 1981 Unknown [id number] 2.16.840.1.750524.3.579.2.5 93 1981 Unknown [id number] 2.16.840.1.086561.3.579.2.5 93 1981 Unknown [id number] 2.16.840.1.046064.3.579.2.5 93 1981 Unknown [id number] 2.16.840.1.281404.3.579.2.5 93 1981 Unknown [id number] 2.16.840.1.231697.3.579.2.5 93 1959 Unknown [id number] Unknown [id number] 2.16.840.1.875410.19 Unknown [id number] 2.16.840.1.438538.3.579.2.5 31 Social History Date Type Detail Facility Unknown if ever smoked [facility] Other Start: 11-17-2023 Sex Assigned At N [employer] Other Start: 06-18-2023 Tobacco smoking status NHIS Never smoked tobacco [facility] Start: 06-18-2023 Tobacco use and exposure Smokeless tobacco non-user [facility] Start: 11-17-2023 Alcohol intake Lifetime non-d soumya (finding) [facility] Start: 11-17-2023 History of Social function [facility] Start: 03-21-2023 Alcohol Comment Caffeine intake: non e [facility] Start: 2002 Sex Assigned At Not on file [facility] Telephone encounter Note 11-19-2023 Telephone Encounter [...] calculated. Her current vials in February 2024. [facility] Work Phone: Note 11-19-2023 Telephone Encounter - [...] in February 2024. documented in this encounter [facility] Evaluation note 07-24-2021 Note Date & Type Note Facility 07-24-2021 Evaluation note Encounter Date Diagnosis Assessment Notes Jul, Intractable migraine without aura and with status migrainosus (ICD-10 - G43.011) Take medication as directed. Stay away from known triggers. Follow up with primary care provider or neurology if symptoms persist as new treatment option may need to be discussed. [facility] Other History general Narrative - Reported Note Date & Type Note Facility History general Narrative - Reported Type Medical History asthma Medical History acne Medical History allergies Medical History migraine Surgical History tonsillectomy [facility] Other Summary Purpose Family History No Family History Records FoundNo Family History Records FoundNo Family History Records FoundNo Family History Records Found Advance Directives No Advanced Directives Records FoundNo Advanced Directives Records FoundNo Advanced Directives Records FoundNo Advanced Directives Records Found Additional Source Comments INFORMATION SOURCE (unrecogn ized section and content) DATE CREATED AUTHOR [facility]16/2018 [facility] DATE CREATED AUTHOR AUTHOR'S ORGANIZ ATION 02/09/2019 [facility] DATE CREATED AUTHOR AUTHOR'S ORGANIZ ATION 07/23/2023 [facility] DATE CREATED AUTHOR AUTHOR'S ORGANIZ ATION 04/06/2024 [facility] EPIC REASON FOR VISIT (unrecogniz ed section and content) HEADACHE, NO OTHER [facility] Care Teams (unrecognized sec tion and content) 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 [facility] provides no warranty or guarantee of the accuracy or completeness of information in this document.
== END 2024-04-09 11:01 | disposition home or self-care (01) ==
LOC: US 11:00
PROVIDERS: PCP Family Medicine; Visit Provider Physician Assistant
DX: R22.1 Localized swelling, mass and lump, neck (principal)
CPT/HCPCS: 76536